=== PATIENT | female | born 1985 | race Caucasian/White ===

== ENCOUNTER 2018-03-23 15:52 | Inpatient (IN) | payer OTHER, SELFPAY ==
[2018-03-23] MEDS ORDERED: PROMETHAZINE 25 MG/ML VIAL ONE (16:42)
[2018-03-23] MEDS ORDERED: NA CHLORIDE 0.9% 2,000 ML ONE (16:43)
[2018-03-23] MEDS ORDERED: FENTANYL CITR 100 MCG/2 ML ONE (16:43)
[2018-03-23] MEDS ORDERED: ACETAMINOPHEN 500 MG TAB ONE (16:43)
--- NOTE | 2018-03-23 16:53 | RAD REPORT ---
EXAM DESCRIPTION: [place] Single View03/23/2018 4:47 pm CLINICAL HISTORY: abd pain COMPARISON: none FINDINGS: The lungs appear clear of acute infiltrate. The heart is normal size IMPRESSION: No acute abnormalities displayed
[2018-03-23 16:55] LABS: Absolute Lymphocytes (CBC) 0.9 K/uL (0.7-4.9); Basophils % 0.4 % (0-1.3); Eosinophils % 0.7 % (0-4.4); Hematocrit 42.1 % (36.0-45.0); Lymphocytes % 11.5 % (15.3-44.8); MCH 34.4 pg (27.0-35.0); MCV 98.9 fL (80-100); Monocytes % 0.6 % (3.3-12.3); RBC Red Blood Cell Count 4.26 M/uL (3.86-4.86)
[2018-03-23 17:09] LABS: Albumin 3.4 g/dL (3.4-5.0); Bilirubin Direct 0.2 mg/dL (0-0.2); Bilirubin Total 0.6 mg/dL (0.2-1.0); Protein, Total 7.1 g/dL (6.4-8.2)
--- NOTE | 2018-03-23 18:38 | RAD REPORT ---
EXAM DESCRIPTION: CT - Abdomen Pelvis W Contrast - 03/23/2018 6:28 pm CLINICAL HISTORY: Abdominal pain, left upper quadrant pain, chills COMPARISON: None. TECHNIQUE: Biphasic, helical CT imaging of the abdomen and pelvis was performed following 100 ml non -ionic IV contrast. Oral contrast was given. All CT scans are performed using dose optimization technique as appropriate and may include automated exposure control or mA/KV adjustment according to patient size. FINDINGS: No suspicious findings in the lung bases. The liver, spleen, and pancreas show no suspicious findings. Gallbladder and biliary tree are also wi thout suspicious finding. Renal function is symmetric. However, there is diminished or heterogeneous enhancement in the lower p ole of the left kidney. Minimal stranding in the perinephric fat. Simon of the left ureter enhance. T here is no dilatation or obstructing calculus. No abscess. Urinary bladder wall appears thickened gre ater than expected for partial contraction. No bladder mass. Uterus and right ovary show no suspiciou s finding. Left ovary contains a 3 centimeter cyst. No evidence for complicating characteristic. No dilated bowel loops or bowel wall thickening. No appendicitis findings. No free air, free fluid or inflammatory stranding. No hernia, mass or bulky lymphadenopathy. The urinary bladder is without si gnificant finding. No adrenal abnormality. No suspicious bony findings. IMPRESSION: Left-sided pyelonephritis without abscess or other complicating finding. Probable cystitis.
--- NOTE | 2018-03-23 18:43 | EKG ---
Test Date: 2018-03-23 Test Time: 16:58:23 Quality Assurance Assessor: REGGIE MEASUREMENT RESULTS: Intervals: Rate: 117 VT: 128 QRSD: 78 QT: 298 QTc: 415 [place]: P: 42 VT: 128 QRS: 5 T: 44 INTERPRETIVE STATEMENTS: Sinus tachycardia Otherwise normal ECG No previous ECG available for comparison Electronically Signed On 03-23-18 18:42:51 CDT by Clive Medel
[2018-03-23] MEDS ORDERED: CEFTRIAXONE/SWI 1gm 2 GM/20 ML SYR ONE (18:57)
[2018-03-23 19:07] LABS: Urine Amorphous Sediment 1+ /HPF (NONE SEEN); Urine Bacteria 20-50 /HPF (<20); Urine Culture Reflex Order REFLEXED
[2018-03-23 19:07] LABS: Urine Blood 2+ (NEG); Urine Glucose NEGATIVE (NEG); Urine Protein 1+ (NEG); Urine Specific Gravity <1.005 (1.005-1.030)
--- NOTE | 2018-03-23 19:08 | ER ---
Nurse's Notes [facility] Name: Jyoti Amado Age: 32 yrs Sex: Female : 1985 Arrival Date: 03/23/2018 Time: 15:59 Bed 6 Private MD: William Torres E Diagnosis: Acute tubulo-interstitial nephritis Presentation: 03/23 16:03 Presenting complaint: Patient states: LUQ abd pain for 4 days, chills, denies fever, sg nausea/vomiting, denies urinary symptoms at this time. Transition of care: patient was not received from another setting of care. Onset of symptoms was March 23, 2018. Risk Assessment: Do you want to hurt yourself or someone else? Patient reports no desire to harm self or others. Initial Sepsis Screen: Does the patient meet any 2 criteria? No. Patient's initial sepsis screen is negative. Does the patient have a suspected source of infection? No. Patient's initial sepsis screen is negative. Care prior to arrival: None. 16:03 Method Of Arrival: Ambulatory sg 16:03 Acuity: GABO 3 sg 16:17 Initial Sepsis Screen: Does the patient meet any 2 criteria? Temp <36.0*C (96.8*F)) or sv > 38.3*C (100.4*F). HR > 90 bpm. Yes Does the patient have a suspected source of infection? Yes: Acute abdominal pain. 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 - Social history:: Smoking status: Patient uses tobacco products, smokes one-half pack cigarettes per day. - Ebola Screening: : Patient negative for fever greater than or equal to 101.5 degrees Fahrenheit, and additional compatible Ebola Virus Disease symptoms Patient denies exposure to infectious person Patient denies travel to an Ebola-affected area in the 21 days before illness onset No symptoms or risks identified at this time. Screenin:35 Abuse screen: Denies threats or abuse. Denies injuries from another. Nutritional sv screening: No deficits noted. Tuberculosis screening: No symptoms or risk factors identified. Fall Risk None identified. Assessment: 16:35 General: Appears in no apparent distress. uncomfortable, well developed, Behavior is sv cooperative, crying. General: Reports chills for 0-12 hours. Pain: Complains of pain in suprapubic area, anterior aspect of left lateral abdomen, left upper quadrant and left lower quadrant Pain currently is 10 out of 10 on a pain scale. Is continuous. Neuro: Level of Consciousness is awake, alert, obeys commands, Oriented to person, place, time, situation, Moves all extremities. Full function Gait is steady, Speech is normal. Cardiovascular: Patient's skin is warm and dry. Respiratory: Respiratory effort is even, unlabored, Respiratory pattern is regular, symmetrical. GI: Abdomen is flat, Abd is soft X 4 quads Abdomen is tender to palpation in suprapubic area, left upper quadrant and left lower quadrant Reports nausea, vomiting. Derm: Skin is normal, Skin temperature is hot. Musculoskeletal: Range of motion: intact in all extremities. 18:54 Reassessment: Patient appears in no apparent distress at this time. No changes from sv previously documented assessment. Patient and/or family updated on plan of care and expected duration. Pain level reassessed. Patient is alert, oriented x 3, equal unlabored respirations, skin warm/dry/pink. 19:00 GI: Bowel sounds present X 4 quads. bp 19:30 Reassessment: received patient lying on bed. vital signs are stable. awaiting admit rv orders and room assignment. Vital Signs: 16:17 BP 120 / 74; Pulse 128; Resp 19; Temp 103.2; Pulse Ox 99% on R/A; Weight 65.77 kg; dh3 Height 5 ft. 1 in. (154.94 cm); Pain 10/10; 17:00 BP 121 / 70; Pulse 117; Resp 17; Pulse Ox 98% ; sv 17:12 Temp 101.7; dh3 17:38 BP 112 / 66; Pulse 111; Resp 21; Pulse Ox 98% ; sv 18:08 BP 108 / 65; Pulse 102; Resp 19; Temp 101.9(O); Pulse Ox 97% ; sv 18:45 BP 104 / 65; Pulse 96; Resp 16; Pulse Ox 96% on R/A; sv 20:15 BP 94 / 62; Pulse 87; Resp 16; Pulse Ox 100% ; bp 20:53 BP 94 / 62; Pulse 96; Resp 16; Pulse Ox 98% on R/A; rv 16:17 Body Mass Index 27.40 (65.77 kg, 154.94 cm) 3 ED Course: 15:59 Patient arrived in ED. sb2 15:59 William Torres MD is Private Physician. sb2 16:03 Arm band placed on. sg 16:04 Triage completed. sg 16:06 Sharon Bass FNP-C is PHCP. snw 16:06 Elijah Nelson MD is Attending Physician. snw 16:15 Initial lab(s) drawn, by me, sent to lab. 3 16:15 First set of blood cultures drawn by me, by venipuncture 23G to left ac. dh3 16:16 Rhona Carrera, ELIJAH is Primary Nurse. sv 16:21 Inserted saline lock: 20 gauge in right antecubital area, using aseptic technique. 3 Blood collected. 16:35 Patient has correct armband on for positive identification. Placed in gown. Bed in low sv position. Call light in reach. Adult w/ patient. Pulse ox on. NIBP on. Door closed. Head of bed elevated. 16:45 Chest Single View XRAY In Process Unspecified. EDMS 16:49 X-ray completed. Portable x-ray completed in exam room. Patient tolerated procedure kp1 well. 16:56 Second set of blood cultures drawn by me, by venipuncture 23G to right hand. 3 17:03 EKG done, by medical technologist. reviewed by Sharon BARAJAS. sm3 17:26 Basic Metabolic Panel Sent. sv 17:26 Blood Culture Adult (2) Sent. sv 17:58 PHCP role handed off by Sharon Bass FNP-C jr8 17:58 Julio Bland PA is PHCP. jr8 18:28 CT Abd/Pelvis - W/Contrast In Process Unspecified. EDMS 19:06 Pat Parish MD is Hospitalizing Provider. jr8 19:08 Report given to Jailene RN and Bandar RN. sv 20:19 No provider procedures requiring assistance completed. Patient admitted, IV remains in bp place. Administered Medications: 16:45 Drug: NS 0.9% (30 ml/kg) 30 ml/kg Route: IV; Rate: bolus; Site: right antecubital; sv 16:45 Drug: Phenergan 6.25 mg Route: IVP; Site: right antecubital; sv 17:30 Follow up: Response: No adverse reaction sv 16:47 Drug: fentaNYL (PF) 50 mcg Route: IVP; Site: right antecubital; sv 17:30 Follow up: Response: No adverse reaction sv 16:51 Drug: Tylenol 1000 mg Route: PO; sv 17:30 Follow up: Response: No adverse reaction sv 18:58 Drug: Rocephin 2 grams Route: IV; Rate: calculated rate; Site: right antecubital; ph 18:59 Follow up: Response: No adverse reaction; IV Status: Completed infusion ph Outcome: 19:06 Decision to Hospitalize by Provider. emily 21:19 Admitted to Med/surg accompanied by aniket, via wheelchair, room 219, with chart, Report bp called to SHANNAN 21:19 Condition: stable 21:19 Instructed on the need for admit. 21:20 Patient left the ED. bp Signatures: Dispatcher [employer] EDMS Rhona Carrera, RN RN Perfecto Pelayo RN RN sg Sharon Bass, STAFF PSYCHIATRIST-C STAFF PSYCHIATRIST-Csnw Julio Bland PA PA jr8 Alena Cancino RN RN Cindy Mejia kp1 Lyudmila Pace 3 Bandar Posada RN RN Kailey Max 2 Susan Sandoval 3 Juliano Nichole RN RN rv
--- NOTE | 2018-03-23 19:08 | EDPHYS ---
Physician Documentation [facility] Name: Jyoti Amado Age: 32 yrs Sex: Female : 1985 Arrival Date: 03/23/2018 Time: 15:59 Bed 6 Private MD: William Torres E ED Physician Elijah Nelson HPI: 03/23 17:25 This 32 yrs old Female presents to ER via Ambulatory with complaints of snw Abdominal Pain. 17:25 The patient presents with abdominal pain in the left upper quadrant, in the left lower snw quadrant. Onset: The symptoms/episode began/occurred gradually. The symptoms do not radiate. Associated signs and symptoms: Pertinent positives: nausea and vomiting, vomiting. The symptoms are described as shooting. Severity of pain: At its worst the pain was severe incapacitating. The patient has not experienced similar symptoms in the past. 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 - Social history:: Smoking status: Patient uses tobacco products, smokes one-half pack cigarettes per day. - Ebola Screening: : Patient negative for fever greater than or equal to 101.5 degrees Fahrenheit, and additional compatible Ebola Virus Disease symptoms Patient denies exposure to infectious person Patient denies travel to an Ebola-affected area in the 21 days before illness onset No symptoms or risks identified at this time. ROS: 17:24 Eyes: Negative for injury, pain, redness, and discharge, ENT: Negative for injury, snw pain, and discharge, Neck: Negative for injury, pain, and swelling, Cardiovascular: Negative for chest pain, palpitations, and edema, Respiratory: Negative for shortness of breath, cough, wheezing, and pleuritic chest pain. 17:24 Back: Negative for injury and pain, : Negative for injury, bleeding, discharge, and swelling, MS/Extremity: Negative for injury and deformity, Skin: Negative for injury, rash, and discoloration, Neuro: Negative for headache, weakness, numbness, tingling, and seizure, Psych: Negative for depression, anxiety, suicide ideation, homicidal ideation, and hallucinations. 17:24 Constitutional: Positive for body aches, chills, poor PO intake. 17:24 Abdomen/GI: Positive for abdominal pain, nausea and vomiting. Exam: 17:24 Head/Face: Normocephalic, atraumatic. Eyes: Pupils equal round and reactive to light, snw extra-ocular motions intact. Lids and lashes normal. Conjunctiva and sclera are non-icteric and not injected. Cornea within normal limits. Periorbital areas with no swelling, redness, or edema. ENT: Nares patent. No nasal discharge, no septal abnormalities noted. Tympanic membranes are normal and external auditory canals are clear. Oropharynx with no redness, swelling, or masses, exudates, or evidence of obstruction, uvula midline. Mucous membranes moist. Neck: Trachea midline, no thyromegaly or masses palpated, and no cervical lymphadenopathy. Supple, full range of motion without nuchal rigidity, or vertebral point tenderness. No Meningismus. Chest/axilla: Normal chest wall appearance and motion. Nontender with no deformity. No lesions are appreciated. 17:24 Respiratory: Lungs have equal breath sounds bilaterally, clear to auscultation and percussion. No rales, rhonchi or wheezes noted. No increased work of breathing, no retractions or nasal flaring. Back: No spinal tenderness. No costovertebral tenderness. Full range of motion. Skin: Warm, dry with normal turgor. Normal color with no rashes, no lesions, and no evidence of cellulitis. MS/ Extremity: Pulses equal, no cyanosis. Neurovascular intact. Full, normal range of motion. Neuro: Awake and alert, GCS 15, oriented to person, place, time, and situation. Cranial nerves II-XII grossly intact. Motor strength 5/5 in all extremities. Sensory grossly intact. Cerebellar exam normal. Normal gait. Psych: Awake, alert, with orientation to person, place and time. Behavior, mood, and affect are within normal limits. 17:24 Constitutional: The patient appears alert, awake, anxious, febrile, uncomfortable. 17:24 Cardiovascular: Rate: tachycardic, Rhythm: regular, Heart sounds: normal. 17:24 Abdomen/GI: Inspection: abdomen appears normal, Bowel sounds: normal, Palpation: moderate abdominal tenderness, severe abdominal tenderness, in the suprapubic area and left lower quadrant. Vital Signs: 16:17 BP 120 / 74; Pulse 128; Resp 19; Temp 103.2; Pulse Ox 99% on R/A; Weight 65.77 kg; dh3 Height 5 ft. 1 in. (154.94 cm); Pain 10/10; 17:00 BP 121 / 70; Pulse 117; Resp 17; Pulse Ox 98% ; sv 17:12 Temp 101.7; dh3 17:38 BP 112 / 66; Pulse 111; Resp 21; Pulse Ox 98% ; sv 18:08 BP 108 / 65; Pulse 102; Resp 19; Temp 101.9(O); Pulse Ox 97% ; sv 18:45 BP 104 / 65; Pulse 96; Resp 16; Pulse Ox 96% on R/A; sv 20:15 BP 94 / 62; Pulse 87; Resp 16; Pulse Ox 100% ; bp 20:53 BP 94 / 62; Pulse 96; Resp 16; Pulse Ox 98% on R/A; rv 16:17 Body Mass Index 27.40 (65.77 kg, 154.94 cm) 3 MDM: 16:45 Patient medically screened. snw 18:00 Data reviewed: vital signs, nurses notes. Data interpreted: Pulse oximetry: on room air snw is 98 %. Interpretation: normal. Counseling: I had a detailed discussion with the patient and/or guardian regarding: the historical points, exam findings, and any diagnostic results supporting the discharge/admit diagnosis, lab results, radiology results. Transition of care: After a detail discussion of the patient's case, care is transferred to Julio CARTAGENA. Special discussion:. 19:06 Data reviewed: lab test result(s), radiologic studies, CT scan. Counseling: I had a jr8 detailed discussion with the patient and/or guardian regarding: the need for further work-up and treatment in the hospital. 03/23 16:31 Order name: Basic Metabolic Panel [facility] 03/23 16:31 Order name: Blood Culture Adult (2) w 03/23 16:31 Order name: CBC with Diff; Complete Time: 17:36 snw 03/23 16:31 Order name: CPK; Complete Time: 17:11 w 03/23 16:31 Order name: Lactate; Complete Time: 17:07 snw 03/23 16:31 Order name: LFT's; Complete Time: 17:11 snw 03/23 16:31 Order name: Lipase; Complete Time: 17:11 snw 03/23 16:31 Order name: Procalcitonin; Complete Time: 17:36 snw 03/23 16:31 Order name: Sed Rate; Complete Time: 17:36 snw 03/23 16:32 Order name: Basic Metabolic Panel; Complete Time: 17:11 EDMS 03/23 16:32 Order name: Blood Culture EDID 03/23 18:49 Order name: Urine Dipstick--Ancillary (enter results); Complete Time: 19:12 em1 03/23 18:50 Order name: Urine Microscopic Only; Complete Time: 19:12 em1 03/23 19:08 Order name: Urine Culture [facility] 03/23 16:31 Order name: Chest Single View XRAY; Complete Time: 17:07 snw 03/23 16:31 Order name: Cardiac monitoring; Complete Time: 17:14 snw 03/23 16:31 Order name: EKG - Nurse/Tech; Complete Time: 17:01 w 03/23 16:31 Order name: IV Saline Lock - Large Bore; Complete Time: 16:50 w 03/23 16:31 Order name: Labs collected and sent; Complete Time: 16:50 w 03/23 16:31 Order name: O2 Per Protocol; Complete Time: 16:50 w 03/23 16:31 Order name: O2 Sat Monitoring; Complete Time: 16:50 snw 03/23 16:31 Order name: Urine Dipstick-Ancillary (obtain specimen); Complete Time: 18:48 snw 03/23 16:47 Order name: CT Abd/Pelvis - W/Contrast; Complete Time: 18:41 snw 03/23 18:39 Order name: EKG Electrocardiogram EDMS Administered Medications: 16:45 Drug: NS 0.9% (30 ml/kg) 30 ml/kg Route: IV; Rate: bolus; Site: right antecubital; sv 16:45 Drug: Phenergan 6.25 mg Route: IVP; Site: right antecubital; sv 17:30 Follow up: Response: No adverse reaction sv 16:47 Drug: fentaNYL (PF) 50 mcg Route: IVP; Site: right antecubital; sv 17:30 Follow up: Response: No adverse reaction sv 16:51 Drug: Tylenol 1000 mg Route: PO; sv 17:30 Follow up: Response: No adverse reaction sv 18:58 Drug: Rocephin 2 grams Route: IV; Rate: calculated rate; Site: right antecubital; ph 18:59 Follow up: Response: No adverse reaction; IV Status: Completed infusion ph Disposition: 03/24 07:11 Co-signature as Attending Physician, Elijah Nelson MD. rn Disposition: 03/23/18 19:06 Hospitalization ordered by Pat Parish for Inpatient Admission. Preliminary diagnosis is Acute tubulo-interstitial nephritis. - Bed requested for Telemetry/MedSurg (Inpatient). - Status is Inpatient Admission. bp - Condition is Fair. - Problem is new. - Symptoms have improved. UTI on Admission? Yes Signatures: Dispatcher [employer] EDMS Rhona Crarera RN ELIJAH Rema Doyle RN ELIJAH Perfecto Bailon RN RN sg Sharon Bass, NEUROSURGERY PHYSICIAN-C NEUROSURGERY PHYSICIAN-Csnw Elijah Nelson MD MD rn Roszak, Josh, PA PA jr8 Alena Cancino RN RN Bandar Posada RN RN Ariadne Odell Corrections: (The following items were deleted from the chart) 03/23 17:25 16:31 Accucheck ordered. snw sv 19:18 19:06 Hospitalization Ordered by Pat Parish MD for Inpatient Admission. Preliminary eb diagnosis is Acute tubulo-interstitial nephritis. Bed requested for Telemetry/MedSurg (Inpatient). Status is Inpatient Admission. Condition is Fair. Problem is new. Symptoms have improved. UTI on Admission? Yes. jr8 19:27 19:18 03/23/2018 19:06 Hospitalization Ordered by Pat Parish MD for Inpatient mw Admission. Preliminary diagnosis is Acute tubulo-interstitial nephritis. Bed requested for Telemetry/MedSurg (Inpatient). Status is Inpatient Admission. Condition is Fair. Problem is new. Symptoms have improved. UTI on Admission? Yes. eb 21:20 19:27 03/23/2018 19:06 Hospitalization Ordered by Pat Parish MD for Inpatient bp Admission. Preliminary diagnosis is Acute tubulo-interstitial nephritis. Bed requested for Telemetry/MedSurg (Inpatient). Status is Inpatient Admission. Condition is Fair. Problem is new. Symptoms have improved. UTI on Admission? Yes. mw
[2018-03-23] MEDS ORDERED: MORPHINE 2 MG/ML SYR IV PRN (19:46)
[2018-03-23] MEDS ORDERED: ONDANSETRON 4 MG/2 ML VIAL IV PRN (19:46)
[2018-03-23] MEDS ORDERED: ACETAMINOPHEN 500 MG TAB PO PRN (19:46)
[2018-03-23] MEDS ORDERED: NA CHLORIDE 0.9% 1,000 ML IV SCH (20:00)
[2018-03-23 21:24] VITALS: BMI 27.3
[2018-03-23 23:28] VITALS: O2SAT 100
[2018-03-24 05:24] LABS: Absolute Lymphocytes (CBC) 1.3 K/uL (0.7-4.9); Absolute Monocytes 0.6 K/uL (0.1-1.3); Absolute Neutrophil 7.9 K/uL (1.8-8.0); Basophils % 0.2 % (0-1.3); Eosinophils % 1.2 % (0-4.4); Hematocrit 34.6 % (36.0-45.0); Lymphocytes % 12.9 % (15.3-44.8); MCH 34.1 pg (27.0-35.0); MCV 98.6 fL (80-100); MPV 8.4 fL (7.6-11.3); Monocytes % 5.7 % (3.3-12.3); RBC Red Blood Cell Count 3.51 M/uL (3.86-4.86)
[2018-03-24 05:41] LABS: ALT/SGPT 27 U/L (12-78); AST/SGOT 14 U/L (15-37); Albumin 2.7 g/dL (3.4-5.0); Alkaline Phosphatase 44 U/L (45-117); BUN Blood Urea Nitrogen 7 mg/dL (7-18); Bicarbonate 25 mmol/L (21-32); Bilirubin Total 0.2 mg/dL (0.2-1.0); Glucose Level 141 mg/dL (74-106); Potassium 3.9 mmol/L (3.5-5.1); Protein, Total 5.9 g/dL (6.4-8.2); Sodium Level 142 mmol/L (136-145)
--- NOTE | 2018-03-24 06:17 | P.HP ---
Certification for Inpatient Patient admitted to: Inpatient With expected LOS: >2 Midnights Patient will require the following post-hospital care: None Practitioner: I am a practitioner with admitting privileges, knowledge of patient current condition, hospital course, and medical plan of care. Services: Services provided to patient in accordance with Admission requirements found in Title 42 Section 412.3 of the Code of Federal Regulations Patient History Date of Service: 03/24/18 Reason for admission: Cystitis/Intractable nausea and vomiting History of Present Illness: Patient is a 32yo who was admitted to the hospital with intractable nausea and vomiting. Patient has been feeling ill for the last few days. Patient went to the emergency room a week ago and was felt to have a kidney stone. She was also found have an ovarian cyst. Her clinical symptoms continued to worsen so she came into the emergency room for further evaluation. She was having intractable nausea and vomiting. She was not able to hold anything down at all. In the ER, she was found have cystitis and diagnose with pyelonephritis as she was having left-sided flank tenderness. Patient be admitted to the hospital for IV antibiotics and IV hydration. If her intractable nausea and vomiting improves and she is able to keep oral pills down she may be ready for discharge in the next 48 hr. Will need to monitor her and treat her aggressively for until she is able to hold her liquids down. Then we can advance her diet as tolerated and possibly discharge her at that time. Allergies No Known Allergies Allergy (Unverified 03/23/18 20:18) Home Medications: NK [No Home Meds] 03/23/18 - Past Medical/Surgical History Has patient received pneumonia vaccine in the past: No Diabetic: No Past Medical History: Patient denies medical history -: Tubal ligation - Family History Father Family History: Reviewed- Non-Contributory - Social History Smoking Status: Current every day smoker Alcohol use: Yes CD- Drugs: No Caffeine use: Yes Place of Residence: Home Review of Systems 10-point ROS is otherwise unremarkable Physical Examination - Vital Signs Temperature: 99.6 F Blood Pressure: 107/57 Pulse: 94 Respirations: 18 Pulse Ox (%): 95 - Physical Exam General: Alert, In no apparent distress, Oriented x3 HEENT: Atraumatic, PERRLA, Mucous membr. moist/pink, EOMI, Sclerae nonicteric Neck: Supple, 2+ carotid pulse no bruit, No LAD, Without JVD or thyroid abnormality Respiratory: Clear to auscultation bilaterally, Normal air movement Cardiovascular: Regular rate/rhythm, Normal S1 S2, No murmurs Gastrointestinal: Normal bowel sounds, Soft and benign, Non-distended, Tenderness (In the left lower quadrant and the left flank) Musculoskeletal: No clubbing, No swelling, No tenderness Integumentary: No rashes Neurological: Normal gait, Normal speech, Normal strength at 5/5 x4 extr, Normal tone, Sensation intact, Cranial nerves 3-12 intact, Normal affect Lymphatics: No axilla or inguinal lymphadenopathy - Studies Laboratory Data (last 24 hrs) 03/23/18 16:16: WBC 8.0, Hgb 14.6, Hct 42.1, Plt Count 297 03/23/18 16:16: Sodium 135 L, Potassium 4.0, BUN 8, Creatinine 0.90, Glucose 161 H, Total Bilirubin 0.6, AST 17, ALT 34, Alkaline Phosphatase 56, Lipase 50 L Assessment & Plan - Problems (Diagnosis) (1) Pyelonephritis Current Visit: Yes Status: Acute (2) Cystitis Current Visit: Yes Status: Acute (3) Intractable nausea and vomiting Current Visit: Yes Status: Acute (4) Abdominal pain Current Visit: Yes Status: Acute - Plan 1. Continue with IV hydration 2. Continue with IV antibiotics 3. Continue with pain control 4. NPO along with anti emetics 5. Follow with gynecology in 1-2 weeks 6. Serial H&H, and we will repeat CBC, BMP, LFTs in a.m. 7. DVT prophylaxis - Advance Directives Does patient have a Living Will: No Does patient have a Durable POA for Healthcare: No - Code Status/Comfort Care Code Status Assessed: Yes Code Status: Full Code Critical Care: No Time Spent Managing PTS Care (In Minutes): 50
[2018-03-24] MEDS ORDERED: TRAMADOL HCL 50 MG TAB PO PRN (06:55)
--- NOTE | 2018-03-24 07:41 | P.PN ---
Subjective Date of Service: 03/24/18 Primary Care Provider: Dr. Torres Chief Complaint: Cystitis/Intractable nausea and vomiting Subjective: Other (Slightly improved. Pain still present to the left flank) Physical Examination - Vital Signs Temperature: 99.6 F Blood Pressure: 107/57 Pulse: 94 Respirations: 18 Pulse Ox (%): 95 - Physical Exam General: Alert, In no apparent distress, Oriented x3, Cooperative HEENT: Atraumatic Neck: Supple Respiratory: Clear to auscultation bilaterally, Normal air movement Cardiovascular: Normal pulses, Regular rate/rhythm Gastrointestinal: Normal bowel sounds, Soft and benign, Non-distended, No masses , No rebound, No guarding, Tenderness (Pain to the left flank) Musculoskeletal: No erythema, No tenderness, No warmth Integumentary: No tenderness/swelling, No erythema, No warmth, No cyanosis Neurological: Normal speech, Normal strength at 5/5 x4 extr, Normal tone, Normal affect - Studies Laboratory Data (last 24 hrs) 03/23/18 16:16: WBC 8.0, Hgb 14.6, Hct 42.1, Plt Count 297 03/23/18 16:16: Sodium 135 L, Potassium 4.0, BUN 8, Creatinine 0.90, Glucose 161 H, Total Bilirubin 0.6, AST 17, ALT 34, Alkaline Phosphatase 56, Lipase 50 L Medications List Reviewed: Yes Assessment & Plan - Problems (Diagnosis) (1) Tobacco abuse Current Visit: Yes Status: Chronic Plan: Will provide nicotine patch if needed. (2) Abdominal pain Current Visit: Yes Status: Acute Plan: Secondary to left-sided pyelonephritis. No abscess noted noted. Blood in urine cultures obtained. Will continue IV antibiotic therapy. Will provide medication for pain discharge likely in 2-3 days. I will turn the service over to Dr. Franco tomorrow to help cover me. I will go over the plan of care with him. Qualifiers: Abdominal location: left upper quadrant Qualified Code(s): R10.12 - Left upper quadrant pain (3) Cystitis Current Visit: Yes Status: Acute Plan: Continue with above plan of care. (4) Intractable nausea and vomiting Current Visit: Yes Status: Acute Plan: Will provide medication as needed Qualifiers: Vomiting type: unspecified Qualified Code(s): R11.2 - Nausea with vomiting , unspecified (5) Pyelonephritis Current Visit: Yes Status: Acute Plan: Continue with IV antibiotic therapy. Continue with aggressive fluid hydration. Await blood and urine culture results. Discharge Plan: Home Plan to discharge in: 72 Hours Time Spent Managing Pts Care (In Minutes): 55
[2018-03-24] MEDS: CEFTRIAXONE/SWI 1gm 1 GM/10 ML SYR IV SCH ×2 (08:14→21:13)
[2018-03-24] MEDS: NA CHLORIDE 0.9% 1,000 ML IV SCH ×3 (08:14→22:13)
[2018-03-24] MEDS ORDERED: CEFTRIAXONE 1 GM/NS 50 ML 1 GM/50 ML BAG IV SCH (09:00)
[2018-03-24] MEDS ORDERED: ALPRAZOLAM 0.25 MG TABLET PO PRN (13:28)
[2018-03-24] MEDS: HYDROCODONE/APAP 7.5/325 MG TAB PO PRN ×2 (15:07→21:11)
[2018-03-25] MEDS: HYDROCODONE/APAP 7.5/325 MG TAB PO PRN (05:56)
[2018-03-25] MEDS ORDERED: PANTOPRAZOLE 40MG TABLET PO SCH (06:30)
[2018-03-25 08:01] VITALS: BP 109/57; TEMP 98.5
[2018-03-25] MEDS: CEFTRIAXONE/SWI 1gm 1 GM/10 ML SYR IV SCH (09:08)
--- NOTE | 2018-03-25 09:23 | P.DS ---
Admission Date: 03/23/18 Discharge Date: 03/25/18 Primary Care Provider: Dr. Torres Disposition: ROUTINE DISCHARGE Discharge Condition: GOOD Reason for Admission: Cystitis/Intractable nausea and vomiting Brief History of Present Illness: Patient is 32 years of age admitted with intractable nausea and vomiting diagnosis of pyelonephritis Hospital Course: Patient did well treated with IV antibiotics CT scan confirmed left-sided pyelonephritis urine cultures positive for E coli can since the time of discharge patient was doing well did not complain of any abdominal or back pain final signs stable ENT normal neck no obvious masses chest clear cardiovascular stem on some normal abdomen soft extremities no edema patient to be discharged home on levofloxacin 750 mg for 7 days and to follow up with the primary care physician Vital Signs/Physical Exam: Temp Pulse Resp BP Pulse Ox 98.5 F 75 16 109/57 L 100 03/25/18 08:00 03/25/18 08:00 03/25/18 08:00 03/25/18 08:00 03/25/18 08:00 Laboratory Data at Discharge: WBC 9.8 K/uL (4.3-10.9) D 03/24/18 04:19 Hgb 12.0 g/dL (12.0-15.0) D 03/24/18 04:19 Hct 34.6 % (36.0-45.0) L D 03/24/18 04:19 Plt Count 283 K/uL (152-406) 03/24/18 04:19 Sodium 142 mmol/L (136-145) 03/24/18 04:19 Potassium 3.9 mmol/L (3.5-5.1) 03/24/18 04:19 BUN 7 mg/dL (7-18) 03/24/18 04:19 Creatinine 0.70 mg/dL (0.55-1.3) 03/24/18 04:19 Glucose 141 mg/dL (74-106) H 03/24/18 04:19 Total Bilirubin 0.2 mg/dL (0.2-1.0) 03/24/18 04:19 AST 14 U/L (15-37) L 03/24/18 04:19 ALT 27 U/L (12-78) 03/24/18 04:19 Alkaline Phosphatase 44 U/L (45-117) L 03/24/18 04:19 Lipase 50 U/L (73-393) L 03/23/18 16:16 Home Medications: levoFLOXacin [Levaquin] 750 mg PO DAILY #7 tab 03/25/18 New Medications: levoFLOXacin [Levaquin] 750 mg PO DAILY #7 tab Followup: William Torres MD [Primary Care Provider] -
== END 2018-03-25 11:36 | disposition home or self-care (01) | DRG 690 ==
LOC: ER 15:52 → ERHOLD 19:13 → 2ND 20:49
PROVIDERS: ADMIT Hospitalist; ATTEND Internal Medicine Sleep Medicine
DX: N10 Acute pyelonephritis (principal); N30.00 Acute cystitis without hematuria; B96.20 Unspecified Escherichia coli [E. coli] as the cause of diseases classified elsewhere; F17.210 Nicotine dependence, cigarettes, uncomplicated
CPT/HCPCS: 36415; 71045; 74177; 80048; 80053; 80076; 81003; 81015; 82550; 83605; 83690; 84145; 85025; 85652; 87040; 87077; 87086; 87088; 87186; 93005; 96374; 96375; 99285; J0696; J2270; J2550; J3010; J7030; Q9967

== ENCOUNTER 2021-10-13 10:11 | Emergency (ER) | payer OTHER, SELFPAY ==
[2021-10-13] MEDS ORDERED: NA CHLORIDE 0.9% 1,000 ML ONE (11:10)
[2021-10-13] MEDS ORDERED: ONDANSETRON 4 MG/2 ML VIAL ONE (11:10)
[2021-10-13] MEDS ORDERED: MORPHINE 4 MG/ML SYR ONE (11:10)
[2021-10-13 11:16] LABS: Urine Blood Trace-intact (Negative); Urine Glucose Negative (Negative); Urine Protein Trace (Negative); Urine Specific Gravity 1.025 (1.005-1.030); Urine pH 5.5 (5.0-7.0)
[2021-10-13 11:34] LABS: Absolute Lymphocytes (CBC) 1.6 K/uL (0.7-4.9); Lymphocytes % 22.6 % (15.3-44.8); MPV 7.7 fL (7.6-11.3); RBC Red Blood Cell Count 4.52 M/uL (3.86-4.86)
[2021-10-13 11:38] LABS: Protime INR 0.98
[2021-10-13 11:58] LABS: Potassium 4.3 mmol/L (3.5-5.1)
--- NOTE | 2021-10-13 12:33 | RAD REPORT ---
EXAM DESCRIPTION: CT - Head C Spine Cap W Con - 10/13/2021 12:09 pm CLINICAL HISTORY: fall down stairs, head, neck, chest and abdomen pain COMPARISON: Facial Bones W/ Mpr dated 10/13/2021 TECHNIQUE: Axial [address] head images were obtained. Axial [address] cervical spine images were obtaine d with sagittal and coronal reconstruction images reviewed. During dynamic enhancement of 100mL non-i onic contrast, axial 5 mm images of the chest, abdomen and pelvis were obtained. Biphasic technique p erformed of the abdomen and pelvis. All CT scans are performed using dose optimization technique as appropriate and may include automated exposure control or mA/KV adjustment according to patient size. FINDINGS: No intracranial hemorrhage, mass or edema. No midline shift or abnormal fluid collection. Mastoid air cells and paranasal sinuses are clear. No skull fracture. Mastoid air cells are clear. Orbits, facial bones and sinuses are detailed in separate report. CT cervical spine imaging shows normal height. Normal alignment of the vertebrae noted. The very slig ht atlantoaxial rotation not felt be outside of normal range. No disc space narrowing. No paraspinal mass or hematoma seen. Central canal detail is inherently limited. Concerns for traumatic disc hernia tion or traumatic cord injury can be further addressed with MR imaging. CT chest shows no pneumothorax, pulmonary contusion or pleural fluid collection. No mediastinal hemat nikky and the aorta and pulmonary arteries are unremarkable. No chest will mass or abnormal axillary fi nding. No displaced rib fracture or other significant bony finding. CT abdomen and pelvis show no injury to solid abdominal viscera. Incidental note of small gallstones. No acute gallbladder or biliary tree finding. No bowel injury or significant finding. No free air, f ree fluid or abnormal stranding. No urinary bladder abnormality. No significant bony finding. No significant vascular finding. IMPRESSION: No significant CT Head finding. Facial bones, sinuses and orbits are detailed in separat e report. No significant CT Cervical Spine finding. No significant CT Chest finding. No significant CT Abdomen and Pelvis finding.
--- NOTE | 2021-10-13 12:39 | RAD REPORT ---
EXAM DESCRIPTION: CT - Facial Bones W/ Mpr - 10/13/2021 12:09 pm CLINICAL HISTORY: Fall down stairs, facial trauma COMPARISON: None. TECHNIQUE: Axial 2 millimeter thick images of the facial bones were obtained with sagittal and coron al reconstruction imaging. All CT scans are performed using dose optimization technique as appropriate and may include automated exposure control or mA/KV adjustment according to patient size. FINDINGS: Left orbital floor fracture is present. Fat extends through the orbital floor defect. Ther e is mucosal thickening and air-fluid level in the left maxillary sinus. No globe or extra ocular mus radha injury seen. The left orbital floor fracture fragment is depressed approximately 2 mm. Nondisplac ed fracture of the anterior tip of the nasal bone suspected. There is significant right deviation of the anterior and midportion of the nasal septum without an acute fracture identifiable. No other facial bone fractures are identified. Paranasal sinuses are otherwise clear of acute finding . There is mucosal thickening in the left side sphenoid sinus that is not believed to be trauma relat ed. . Mastoid air cells are clear. IMPRESSION: Left side orbital floor fracture is present with fracture fragment depressed 2 mm into t he left maxillary sinus. Mucosal thickening and air-fluid level present in the left maxillary sinus. Floor fracture is presumed to be acute given the trauma history. Correlation is needed with any prior facial trauma history. There is no entrapment of an extra ocular muscle related to the floor fracture. Nondisplaced fracture at the anterior tip of the nasal bone suspected. Patient has right deviation th e nasal septum without fracture.
--- NOTE | 2021-10-13 13:34 | EDPHYS ---
Physician Documentation [facility] Name: Jyoti Amado Age: 36 yrs Sex: Female : 1985 Arrival Date: 10/13/2021 Time: 10:14 Bed 11 Private MD: William Torres E ED Physician Yvette Smith HPI: 10/13 11:00 This 36 yrs old Female presents to ER via Ambulatory with complaints of Fall Injury. cp 11:00 Details of fall: The patient fell from a height, 2 flights of stairs, and struck a cp concrete surface. Onset: The symptoms/episode began/occurred 3 day(s) ago. Associated injuries: The patient sustained injury to the head, pain, swelling, tenderness, injury to the chest, specifically the left lateral posterior chest and left lateral anterior chest, pain with breathing, pain with movement, tenderness, injury to the abdomen, specifically the posterior aspect of left lateral abdomen and anterior aspect of left lateral abdomen, tenderness. 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 - Social history:: Smoking status: Patient reports the use of cigarette tobacco products, smokes one-half pack cigarettes per day. - Immunization history: Last tetanus immunization: - up to date. ROS: 11:05 Constitutional: Negative for body aches, chills, fever, poor PO intake. cp 11:05 Eyes: Negative for injury, pain, redness, and discharge. cp 11:05 ENT: Negative for ear pain, sore throat, difficulty swallowing, difficulty handling secretions. 11:05 Cardiovascular: Positive for chest pain. 11:05 Respiratory: Negative for cough, wheezing. 11:05 Abdomen/GI: Positive for abdominal pain, Negative for nausea, vomiting, and diarrhea. 11:05 Back: Positive for pain at rest, pain with movement. 11:05 Neuro: Negative for altered mental status, loss of consciousness, numbness, syncope, weakness. 11:05 All other systems are negative. Exam: 11:10 Constitutional: The patient appears in no acute distress, alert, awake, cp non-diaphoretic, non-toxic, well developed, well nourished, uncomfortable. 11:10 Head/face: Sinus tenderness, that is marked, is located over the left maxillary sinus. cp 11:10 Eyes: Periorbital structures: appear normal, Pupils: equal, round, and reactive to light and accomodation, Extraocular movements: intact throughout, Conjunctiva: normal, no exudate, no injection, Sclera: no appreciated abnormality, Lids and lashes: appear normal, bilaterally. 11:10 ENT: External ear(s): are unremarkable, Nose: External nose: tenderness, apex of the nose, Mouth: Lips: moist, Oral mucosa: moist, Posterior pharynx: Airway: no evidence of obstruction, patent. 11:10 Neck: C-spine: vertebral tenderness, is not appreciated, crepitus, is not appreciated. 11:10 Chest/axilla: Inspection: normal, Palpation: crepitus, is not appreciated, tenderness, that is moderate, of the left lateral posterior chest and left lateral anterior chest. 11:10 Cardiovascular: Rate: normal, Rhythm: regular, Edema: is not appreciated, JVD: is not appreciated. 11:10 Respiratory: the patient does not display signs of respiratory distress, Respirations: normal, no use of accessory muscles, no retractions, labored breathing, is not present, Breath sounds: are clear throughout, no decreased breath sounds, no stridor, no wheezing. 11:10 Abdomen/GI: Inspection: abdomen appears normal, Bowel sounds: active, all quadrants, Palpation: soft, in all quadrants, moderate abdominal tenderness, in the posterior aspect of left lateral abdomen and anterior aspect of left lateral abdomen. 11:10 Back: pain, that is moderate, of the thoracic area. 11:10 Neuro: Orientation: to person, place \T\ time. Mentation: is normal, Motor: moves all fours, strength is normal, Sensation: is normal. Vital Signs: 10:16 BP 127 / 81; Pulse 88; Resp 16; Temp 99.0; Pulse Ox 99% ; Weight 63.5 kg; Height 5 ft. ll1 1 in. (154.94 cm); Pain 10/10; 12:30 BP 121 / 77; Pulse 83 MON; Resp 16 S; Pulse Ox 98% on R/A; Pain 7/10; ab2 10:16 Body Mass Index 26.45 (63.50 kg, 154.94 cm) ll1 [place] Coma Score: 10:29 Eye Response: spontaneous(4). Verbal Response: oriented(5). Motor Response: obeys ab2 commands(6). Total: 15. Trauma Score (Adult): 10:28 Eye Response: spontaneous(1); Verbal Response: oriented(1); Motor Response: obeys ab2 commands(2); Systolic BP: > 89 mm Hg(4); Respiratory Rate: 10 to 29 per min(4); [place] Score: 15; Trauma Score: 12 MDM: 10:42 Patient medically screened. cp 13:30 Data reviewed: vital signs, nurses notes, lab test result(s), radiologic studies, CT cp scan. 13:30 Differential diagnosis: closed head injury, contusion, fracture, multiple trauma, cp sprain, strain. Counseling: I had a detailed discussion with the patient and/or guardian regarding: the historical points, exam findings, and any diagnostic results supporting the discharge/admit diagnosis, lab results, radiology results, the need for outpatient follow up, an ENT specialist, to return to the emergency department if symptoms worsen or persist or if there are any questions or concerns that arise at home. Response to treatment: the patient's symptoms have markedly improved after treatment. 10/13 10:54 Order name: Basic Metabolic Panel; Complete Time: 13:04 cp 10/13 13:04 Interpretation: Normal except: CL 108; GFR 77. cp 10/13 10:54 Order name: CBC with Diff; Complete Time: 13:04 cp 10/13 13:04 Interpretation: Normal except: MCV 90.7; MCH 30.0; RDW 17.3. cp 10/13 10:54 Order name: Type And Screen; Complete Time: 13:04 cp 10/13 10:54 Order name: PT-INR; Complete Time: 13:04 cp 10/13 11:16 Order name: Urine Dipstick-Ancillary; Complete Time: 13:04 EDMS 10/13 13:04 Interpretation: Normal except: UBLD Trace-intact; UPROT Trace; U NIT Positive; UESTR cp Trace. 10/13 11:32 Order name: Urine --Ancillary (enter results) bd 10/13 10:54 Order name: CT Traumagram (Head C Spine CAP W Con); Complete Time: 13:04 10/13 10:54 Order name: Labs collected and sent; Complete Time: 11:15 10/13 10:54 Order name: Urine Dipstick-Ancillary (obtain specimen); Complete Time: 11:15 10/13 10:54 Order name: Urine Test (obtain specimen); Complete Time: 11:15 10/13 10:54 Order name: CT Facial Bones W/O Con; Complete Time: 13:04 10/13 13:07 Interpretation: Report reviewed. cp Administered Medications: 11:12 Drug: morphine 4 mg Route: IVP; Site: right antecubital; ab2 12:47 Follow up: Response: No adverse reaction ab2 11:12 Drug: Zofran (Ondansetron) 4 mg Route: IVP; Site: right antecubital; ab2 12:47 Follow up: Response: No adverse reaction ab2 11:12 Drug: NS 0.9% 1000 ml Route: IV; Rate: 1 bolus; Site: right antecubital; ab2 12:47 Follow up: Response: No adverse reaction; IV Status: Completed infusion ab2 Disposition: 13:45 Chart complete. cp 10/14 04:42 Co-signature as Attending Physician, Yvette Smith MD I agree with the assessment and sp3 plan of care. Disposition Summary: 10/13/21 13:33 Discharge Ordered Location: Home cp Problem: new cp Symptoms: have improved cp Condition: Stable cp Diagnosis - Fracture of orbital floor - left cp - Fall (on) (from) other stairs and steps cp - Fracture of nasal bones cp - Contusion of left back wall of thorax, initial encounter cp - Contusion of left front wall of thorax, initial encounter cp Followup: cp - With: Rhona Pace MD - When: 2 - 3 days - Reason: Recheck today's complaints Discharge Instructions: - Discharge Summary Sheet cp - Chest Wall Pain cp - Orbital Floor Fracture cp - Nasal Fracture cp Forms: - Medication Reconciliation Form cp - Thank You Letter cp - Antibiotic Education cp - Prescription Opioid Use cp Prescriptions: - Ibuprofen 800 mg Oral Tablet - take 1 tablet by ORAL route every 8 hours As needed take with food; 30 tablet; cp Refills: 0, Product Selection Permitted - Ultracet 37.5-325 mg Oral Tablet - take 1 tablet by ORAL route every 6 hours - for up to 5 days; do not exceed 8 cp tablets per day.; 20 tablet; Refills: 0, Product Selection Permitted Signatures: Dispatcher [employer] EDFly Ring PA PA cp Lewis, Lynsay RN RN ll1 Yvette Smith MD MD sp3 Jose Manuel Lewis2
--- NOTE | 2021-10-13 13:34 | ER ---
Nurse's Notes [facility] Name: Jyoti Amado Age: 36 yrs Sex: Female : 1985 Arrival Date: 10/13/2021 Time: 10:14 Bed 11 Private MD: William Torres E Diagnosis: Fracture of orbital floor-left;Fall (on) (from) other stairs and steps;Fracture of nasal bones;Contusion of left back wall of thorax, initial encounter;Contusion of left front wall of thorax, initial encounter Presentation: 10/13 10:16 Chief complaint: Patient states: Fall on Tuesday. Dog dragged her down the stairs. ll1 Fell on L side. L trunk pain since. L side of face feels numb and painful. Denies LOC. Coronavirus screen: Vaccine status: Patient reports being unvaccinated. Client denies travel out of the [place] in the last 14 days. At this time, the client does not indicate any symptoms associated with coronavirus-19. Ebola Screen: Patient denies travel to an Ebola-affected area in the 21 days before illness onset. Initial Sepsis Screen: Does the patient meet any 2 criteria? No. Patient's initial sepsis screen is negative. Does the patient have a suspected source of infection? No. Patient's initial sepsis screen is negative. Risk Assessment: Do you want to hurt yourself or someone else? Patient reports no desire to harm self or others. Onset of symptoms was October 10, 2021. 10:16 Method Of Arrival: Ambulatory ll1 10:16 Acuity: GABO 3 ll1 10:29 Care prior to arrival: None. Mechanism of Injury: Fall down steps. ab2 10:30 Trauma event details: Injury occurred in the county of Injury occurred: at home. Injury ab2 occurred: October 10, 2021. 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 - Social history:: Smoking status: Patient reports the use of cigarette tobacco products, smokes one-half pack cigarettes per day. - Immunization history: Last tetanus immunization: - up to date. Screenin:28 Abuse screen: Denies threats or abuse. Denies injuries from another. Nutritional ab2 screening: No deficits noted. Tuberculosis screening: No symptoms or risk factors identified. Fall Risk None identified. Primary Survey: 10:28 NO uncontrolled hemorrhage observed. Breathing/Chest: Respiratory pattern: regular, ab2 Respiratory effort: spontaneous, unlabored. Circulation: Pulses: palpable right radial artery and left radial artery. Disability Alert. Exposure/Environment: There is no evidence of uncontrolled external bleeding. No obvious injuries are noted at this time. 10:30 Reassessment Breathing/Chest Respiratory pattern Regular Circulation Pulses Palpable ab2 Disability Alert. Assessment: 10:25 General: Appears in no apparent distress. comfortable, Behavior is cooperative, ab2 anxious. Pain: Complains of pain in left low back and left mid back Pain currently is 10 out of 10 on a pain scale. Neuro: No deficits noted. Level of Consciousness is awake, alert, obeys commands, Oriented to person, place, time, situation, Appropriate for age Dynamometer Mechanic are equal bilaterally Moves all extremities. Gait is steady, Speech is normal. Cardiovascular: No deficits noted. Denies chest pain, shortness of breath, Heart tones S1 S2 present Patient's skin is warm and dry. Respiratory: Airway is patent Breath sounds are clear bilaterally. GI: No deficits noted. No signs and/or symptoms were reported involving the gastrointestinal system. Abdomen is round non-distended. : No deficits noted. No signs and/or symptoms were reported regarding the genitourinary system. EENT: Reports nasal discharge that is bloody. Derm: Bruising that is dark purple, on left eye. Musculoskeletal: Reports pain in left low back and left mid back since Tuesday. Injury Description: Pt states she was pulled down her stairs by her dog, causing her to fall onto her left side. Vital Signs: 10:16 BP 127 / 81; Pulse 88; Resp 16; Temp 99.0; Pulse Ox 99% ; Weight 63.5 kg; Height 5 ft. ll1 1 in. (154.94 cm); Pain 10/10; 12:30 BP 121 / 77; Pulse 83 MON; Resp 16 S; Pulse Ox 98% on R/A; Pain 7/10; ab2 10:16 Body Mass Index 26.45 (63.50 kg, 154.94 cm) ll1 [place] Coma Score: 10:29 Eye Response: spontaneous(4). Verbal Response: oriented(5). Motor Response: obeys ab2 commands(6). Total: 15. Trauma Score (Adult): 10:28 Eye Response: spontaneous(1); Verbal Response: oriented(1); Motor Response: obeys ab2 commands(2); Systolic BP: > 89 mm Hg(4); Respiratory Rate: 10 to 29 per min(4); [place] Score: 15; Trauma Score: 12 ED Course: 10:14 Patient arrived in ED. ds1 10:14 William Torres MD is Private Physician. ds1 10:19 Triage completed. ll1 10:19 Arm band placed on Patient placed in an exam room, on a stretcher. ll1 10:25 Jose Manuel Lewis is Primary Nurse. ab2 10:29 Fly Pepper PA is PHCP. cp 10:29 Yvette Smith MD is Attending Physician. cp 10:29 No provider procedures requiring assistance completed. ab2 10:29 Patient maintains SpO2 saturation greater than 95% on room air. ab2 10:30 Patient has correct armband on for positive identification. Bed in low position. Call ab2 light in reach. Side rails up X2. 10:31 Thermoregulation: warm blanket given to patient. ab2 11:15 Basic Metabolic Panel Sent. ab2 11:15 CBC with Diff Sent. ab2 11:15 Type And Screen Sent. ab2 11:15 PT-INR Sent. ab2 11:16 Inserted saline lock: 20 gauge in left antecubital area, using aseptic technique. ab2 12:09 CT Traumagram (Head C Spine CAP W Con) In Process Unspecified. EDMS 12:10 CT Facial Bones W/O Con In Process Unspecified. EDMS 13:32 Rhona Pace MD is Referral Physician. cp 13:53 IV discontinued, Pressure dressing applied. mh5 Administered Medications: 11:12 Drug: morphine 4 mg Route: IVP; Site: right antecubital; ab2 12:47 Follow up: Response: No adverse reaction ab2 11:12 Drug: Zofran (Ondansetron) 4 mg Route: IVP; Site: right antecubital; ab2 12:47 Follow up: Response: No adverse reaction ab2 11:12 Drug: NS 0.9% 1000 ml Route: IV; Rate: 1 bolus; Site: right antecubital; ab2 12:47 Follow up: Response: No adverse reaction; IV Status: Completed infusion ab2 Output: 13:12 Urine: 200ml (Voided); Total: 200ml. ab2 Outcome: 13:10 Patient's length of stay in the Emergency Department was greater than 2 hours. AWAITING ab2 TEST RESULTSPatient's length of stay extended due to 13:33 Discharge ordered by MD. cp 14:13 Discharged to home ambulatory. ab2 14:13 Condition: good 14:13 Discharge instructions given to patient, Instructed on discharge instructions, follow up and referral plans. medication usage, Demonstrated understanding of instructions, follow-up care, medications, Prescriptions given X 2. 14:13 Patient left the ED. ab2 Signatures: Dispatcher [employer] EDMS Tiffany Flood ds1 Fly Pepper PA PA cp Martinez, [facility] Marianela Vergara RN RN ll1 Jose Manuel Lewis ab2 Corrections: (The following items were deleted from the chart) 10:20 10:16 BP 127 / 81; Pulse 88bpm; Resp 16bpm; Pulse Ox 99%; 63.5 kg; Height 5 ft. 1 in.; ll1 BMI: 26.4; Pain 06/28; ll1
[2021-10-13 13:44] LABS: Urine Specific Gravity/Preg 1.025 (1.005-1.030)
[2021-10-13 14:24] VITALS: TEMP 99
[2021-10-13 14:25] VITALS: BP 121/77; O2SAT 98
== END 2021-10-13 14:13 | disposition home or self-care (01) ==
LOC: ER 10:11
DX: S02.32XA Fracture of orbital floor, left side, initial encounter for closed fracture (principal); S02.2XXA Fracture of nasal bones, initial encounter for closed fracture; S20.222A Contusion of left back wall of thorax, initial encounter; S20.212A Contusion of left front wall of thorax, initial encounter; W10.9XXA Fall (on) (from) unspecified stairs and steps, initial encounter; F17.210 Nicotine dependence, cigarettes, uncomplicated
CPT/HCPCS: 36415; 70450; 70486; 71260; 72125; 74177; 76377; 80048; 81003; 81025; 85025; 85610; 86850; 86900; 86901; 96361; 96374; 96375; 99284; J2405; J7030; Q9967

== ENCOUNTER 2023-05-08 12:42 | Emergency (ER) | payer OTHER, SELFPAY ==
--- OUTSIDE RECORDS SUMMARY | 2023-05-08 13:02 | XMS REPORT | Continuity of Care Document ---
:1985 Author Organization [facility] t Address [address] [place] [address] Care Team Providers Name Role Phone JOAN DUKE Primary Care Physician Unavailable JOAN DUKE Attending Clinician Unavailable JOAN DUKE Attending Clinician Unavailable Doctor Unassigned, [place] Attending Clinician Unavailable SUNNY LOMAX Attending Clinician Unavailable Sunny Graff Attending Clinician Unknown, Attending Attending Clinician Unavailable Lab, Ang - Db Attending Clinician Unavailable AXEL CONTRERAS Attending Clinician Unavailable ZEINAB HEMPHILL Attending Clinician Unavailable Zeinab Feliciano Attending Clinician Makayla Woodson Attending Clinician MAKAYLA LEE Attending Clinician Unavailable Payers Payer Name Policy Type Policy Number Effective Date Expiration Date S ource Problems Condition Condition Condition Status Onset Resolution Last Treating Co mments Source Name Details Category Date Date Treatment Clinician Date ADHD ADHD Disease Active Univers (attention (attention it y of deficit deficit [place] hyperactiv hyperactiv Me dical ity ity Branch disorder) disorder) Controlled Controlled Disease Active U nivers substance substance [place] signed signed [place] Allergies, Adverse Reactions, Alerts Allergy Allergy Status Severity Reaction(s) Onset Inactive Treating Comm ents Source Name Type Date Date Clinician NO KNOWN Drug Active Univers ALLERGIE Class ity of S [facility] Social History Social Habit Start Date Stop Date Quantity Comments Source History [facility] o f Alcohol Frequency [facility] Branch History [facility] o f Alcohol Std Drinks [facility] History SDOH University o f Alcohol Binge [place] [facility] Gender identity Universit y of [facility] Sexual orientation Univer sity of [facility] History of tobacco Cigarette Smoker University of use [facility] Alcohol intake 2023-04-28 2023-04-28 Current drinker Unive rsity of 00:00:00 00:00:00 of alcohol [place] Medical (finding) Branch History of Social 2023-04-28 2023-04-28 Univers ity of function 00:00:00 00:00:00 [facility] Exposure to 2023-03-16 2023-03-26 Not sure [facility] SARS-CoV-2 (event) 00:00:00 10:20:00 [facility] Cigarettes smoked 2022-05-05 2022-05-05 Univers ity of current (pack per 00:00:00 00:00:00 [place] ) - Reported Branch Cigarette 2022-05-05 2022-05-05 University of pack-years 00:00:00 00:00:00 [facility] Tobacco use and 2022-05-05 2022-05-05 Smokeless Universit y of exposure 00:00:00 00:00:00 tobacco non-user [facility] dical [place] Alcohol Comment 2017-12-26 2017-12-26 socially Universit y of 00:00:00 00:00:00 [facility] Sex [birth year] Universit y of 00:00:00 00:00:00 [facility] Smoking Status Start Date Stop Date Source Smokes tobacco daily 2022-05-05 00:00:00 Univers ity of [facility] Medications Ordered Filled Start Stop Current Ordering Indication Dosage Frequency Signature Comments Components Source Medication Medication Date Date Medication? Clinician (SIG) Name Name dexmethylph Yes [id number] 2.5mg Take 1 Univers enidate 2.5 8-10 tablet by ity of mg tablet 00:00: mouth 00 every Medical morning Branch and at 1200 (noon). ibuprofen Yes [id number] 600mg Take 1 U nivers 600 mg 8-10 tablet by ity of tablet 00:00: mouth 00 every 6 Medical (six) Branch hours as needed for Pain (scale 4-6). dexmethylph 2023-0 Yes [id number] 2.5mg Take 1 Univers enidate 2.5 8-10 tablet by ity of mg tablet 00:00: mouth [place] 00 every Medical morning Branch and at 1200 (noon). ibuprofen 2023-0 Yes [id number] 600mg Take 1 U nivers 600 mg 8-10 tablet by ity of tablet 00:00: mouth [place] 00 every 6 Medical (six) Branch hours as needed for Pain (scale 4-6). dexmethylph 2023-0 Yes [id number] 2.5mg Take 1 Univers enidate 2.5 8-10 tablet by ity of mg tablet 00:00: mouth [place] 00 every Medical morning Branch and at 1200 (noon). ibuprofen 2023-0 Yes [id number] 600mg Take 1 U nivers 600 mg 8-10 tablet by ity of tablet 00:00: mouth [place] 00 every 6 Medical (six) Branch hours as needed for Pain (scale 4-6). dextroamphe 2023-0 Yes [id number] 30mg Take 1 Univers tamine-amph 7-13 tablet by ity of etamine 30 00:00: mouth [place] mg tablet 00 every Medical morning Branch and at 1200 (noon). dextroamphe 2023-0 2023- No [id number] 30mg Take 1 Univers tamine-amph 7-13 08-10 tablet by it y of etamine 30 00:00: 00:00 mouth [place] mg tablet 00 :00 every Medical morning Branch and at 1200 (noon). dextroamphe 2023-0 2023- No [id number] 30mg Take 1 Univers tamine-amph 7-13 08-10 tablet by it y of etamine 30 00:00: 00:00 mouth [place] mg tablet 00 :00 every Medical morning Branch and at 1200 (noon). methylPREDN 2023-0 Yes [id number] follow Univers ISolone 7-08 package ity of (MEDROL, 00:00: directions [place] KETURAH,) 4 mg 00 Medical tablets Branch methylPREDN 2023-0 Yes [id number] follow Univers ISolone 7-08 package ity of (MEDROL, 00:00: directions [place] KETURAH,) 4 mg 00 Medical tablets Branch methylPREDN 2023-0 Yes [id number] follow Univers ISolone 7-08 package ity of (MEDROL, 00:00: directions [place] KETURAH,) 4 mg 00 Medical tablets Branch methylPREDN 2022-0 Yes [id number] follow Univers ISolone 7-08 package ity of (MEDROL, 00:00: directions [place] KETURAH,) 4 mg 00 Medical tablets Branch methylPREDN 2022-0 Yes [id number] follow Univers ISolone 7-08 package ity of (MEDROL, 00:00: directions [place] KETURAH,) 4 mg 00 Medical tablets Branch methylPREDN 2022-0 Yes [id number] follow Univers ISolone 7-08 package ity of (MEDROL, 00:00: directions [place] as KETURAH,) 4 mg 00 Medical tablets Branch cephALEXin 2022-0 2022- Yes [id number] 500mg Take 1 Univers 500 mg 03-26 capsule by ity of capsule 00:00: 04:59 mouth 4 [place] 00 :00 (four) Medical times Branch daily for 5 days. cephALEXin 2022-0 2022- Yes [id number] 500mg Take 1 Univers 500 mg 03-26 capsule by ity of capsule 00:00: 04:59 mouth 4 [place] 00 :00 (four) Medical times Branch daily for 5 days. cephALEXin 2022-0 2022- Yes [id number] 500mg Take 1 Univers 500 mg 03-26 capsule by ity of capsule 00:00: 04:59 mouth 4 [place] 00 :00 (four) Medical times Branch daily for 5 days. acetaminoph 2022-0 2022- Yes [id number] 1{tbl} Take 1 U nivers en-codeine 03-2611 tablet by ity of (TYLENOL-CO 00:00: 04:59 mouth [place] DEINE #3[place] 00 :00 every 6 Medical 300-30 mg (six) Branch tablet hours as needed for Pain (scale 7-10) for up to 2 days. Indication s: acute pain dextroamphe 2023-0 Yes [id number] 30mg Take 1 Univers tamine-amph 6-13 tablet by ity of etamine 30 00:00: mouth [place] mg tablet 00 every Medical morning Branch and at 1200 (noon). dextroamphe 2023-0 Yes [id number] 30mg Take 1 Univers tamine-amph 6-13 tablet by ity of etamine 30 00:00: mouth [place] mg tablet 00 every Medical morning Branch and at 1200 (noon). dextroamphe 2023-0 Yes [id number] 30mg Take 1 Univers tamine-amph 6-13 tablet by ity of etamine 30 00:00: mouth [place] mg tablet 00 every Medical morning Branch and at 1200 (noon). dextroamphe 2023-0 2023- No [id number] 30mg Take 1 Univers tamine-amph 6-13 07-12 tablet by it y of etamine 30 00:00: 00:00 mouth [place] mg tablet 00 :00 every Medical morning Branch and at 1200 (noon). dextroamphe 2023-0 Yes [id number] 30mg Take 1 Univers tamine-amph 5-18 tablet by ity of etamine 30 00:00: mouth [place] mg tablet 00 every Medical morning Branch and at 1200 (noon). dextroamphe 2023-0 Yes [id number] 30mg Take 1 Univers tamine-amph 5-18 tablet by ity of etamine 30 00:00: mouth [place] mg tablet 00 every Medical morning Branch and at 1200 (noon). dextroamphe 2023-0 3- No [id number] 30mg Take 1 Univers tamine-amph 5-18 06-13 tablet by it y of etamine 30 00:00: 00:00 mouth [place] mg tablet 00 :00 every Medical morning Branch and at 1200 (noon). methylpheni 2023-0 Yes [id number] 20mg Take 1 Univers date HCl 20 4-27 tablet by ity of mg tablet 00:00: mouth [place] 00 the Medical morning Branch and 1 tablet in the evening. methylpheni 2023-0 Yes [id number] 20mg Take 1 Univers date HCl 20 4-27 tablet by ity of mg tablet 00:00: mouth [place] 00 the Medical morning Branch and 1 tablet in the evening. methylpheni 2023-0 2023- No [id number] 20mg Take 1 Univers date HCl 20 4-27 05-18 tablet by it y of mg tablet 00:00: 00:00 mouth in [place] 00 :00 the Medical morning Branch and 1 tablet in the evening. methylpheni 2023-0 Yes [id number] 20mg Take 1 Univers date HCl 20 4-17 tablet by ity of mg tablet 00:00: mouth [place] 00 the Medical morning Branch and 1 tablet in the evening. azelastine 2022-0 Yes [id number] 1{spray Use 1 Univers 137 mcg 4-17 } [place] in ity of (0.1 %) 00:00: each [place] nasal spray 00 nostril 2 Med ical (two) Branch times daily as needed. Use in each nostril as directed methylpheni 2022-0 Yes [id number] 20mg Take 1 Univers date HCl 20 4-17 tablet by ity of mg tablet 00:00: mouth [place] 00 the Medical morning Branch and 1 tablet in the evening. azelastine 2022-0 Yes [id number] 1{spray Use 1 Univers 137 mcg 4-17 } [place] in ity of (0.1 %) 00:00: each [place] nasal spray 00 nostril 2 Med ical (two) Branch times daily as needed. Use in each nostril as directed azelastine 2022-0 Yes [id number] 1{spray Use 1 Univers 137 mcg 4-17 } [place] in ity of (0.1 %) 00:00: each [place] nasal spray 00 nostril 2 Med ical (two) Branch times daily as needed. Use in each nostril as directed azelastine 2022-0 Yes [id number] 1{spray Use 1 Univers 137 mcg 4-17 } [place] in ity of (0.1 %) 00:00: each [place] nasal spray 00 nostril 2 Med ical (two) Branch times daily as needed. Use in each nostril as directed azelastine 2022-0 Yes [id number] 1{spray Use 1 Univers 137 mcg 4-17 } [place] in ity of (0.1 %) 00:00: each [place] nasal spray 00 nostril 2 Med ical (two) Branch times daily as needed. Use in each nostril as directed azelastine 2022-0 Yes [id number] 1{spray Use 1 Univers 137 mcg 4-17 } [place] in ity of (0.1 %) 00:00: each [place] nasal spray 00 nostril 2 Med ical (two) Branch times daily as needed. Use in each nostril as directed azelastine 2022-0 Yes [id number] 1{spray Use 1 Univers 137 mcg 4-17 } [place] in ity of (0.1 %) 00:00: each [place] nasal spray 00 nostril 2 Med ical (two) Branch times daily as needed. Use in each nostril as directed azelastine 3-0 Yes [id number] 1{spray Use 1 Univers 137 mcg 4-17 } [place] in ity of (0.1 %) 00:00: each [place] nasal spray 00 nostril 2 Med ical (two) Branch times daily as needed. Use in each nostril as directed azelastine 2022-0 Yes [id number] 1{spray Use 1 Univers 137 mcg 4-17 } [place] in ity of (0.1 %) 00:00: each [place] nasal spray 00 nostril 2 Med ical (two) Branch times daily as needed. Use in each nostril as directed azelastine 2022-0 Yes [id number] 1{spray Use 1 Univers 137 mcg 4-17 } [place] in ity of (0.1 %) 00:00: each [place] nasal spray 00 nostril 2 Med ical (two) Branch times daily as needed. Use in each nostril as directed azelastine 2022-0 Yes [id number] 1{spray Use 1 Univers 137 mcg 4-17 } [place] in ity of (0.1 %) 00:00: each [place] nasal spray 00 nostril 2 Med ical (two) Branch times daily as needed. Use in each nostril as directed azelastine 3-0 Yes [id number] 1{spray Use 1 Univers 137 mcg 4-17 } [place] in ity of (0.1 %) 00:00: each [place] nasal spray 00 nostril 2 Med ical (two) Branch times daily as needed. Use in each nostril as directed azelastine 2022-0 Yes [id number] 1{spray Use 1 Univers 137 mcg 4-17 } [place] in ity of (0.1 %) 00:00: each [place] nasal spray 00 nostril 2 Med ical (two) Branch times daily as needed. Use in each nostril as directed methylpheni 2022-0 2023- No [id number] 20mg Take 1 Univers date HCl 20 4-17 04-27 tablet by it y of mg tablet 00:00: 00:00 mouth in [place] as 00 :00 the Medical morning Branch and 1 tablet in the evening. methylpheni 3-0 2022- No [id number] 20mg Take 1 Univers date HCl 20 4-17 04-27 tablet by it y of mg tablet 00:00: 00:00 mouth in [place] 00 :00 the Medical morning Branch and 1 tablet in the evening. dextroamphe 2022-0 Yes [id number] 30mg Take 1 Univers tamine-amph 3-30 tablet by ity of etamine 30 00:00: mouth [place] mg tablet 00 every Medical morning Branch and at 1200 (noon). dextroamphe 2022-0 2022- No [id number] 30mg Take 1 Univers tamine-amph 3-30 04-17 tablet by it y of etamine 30 00:00: 00:00 mouth [place] mg tablet 00 :00 every Medical morning Branch and at 1200 (noon). dextroamphe 2022-0 2022- No [id number] 30mg Take 1 Univers tamine-amph 3-30 04-17 tablet by it y of etamine 30 00:00: 00:00 mouth [place] mg tablet 00 :00 every Medical morning Branch and at 1200 (noon). azithromyci 2023-0 Yes [id number] Take two Univers n 250 mg 3-09 tablets my ity o f tablet 00:00: mouth 00 today Medical followed Branch by one tablet daily for a total for 5 days azithromyci 2023-0 Yes [id number] Take two Univers n 250 mg 3-09 tablets my ity o f tablet 00:00: mouth 00 today Medical followed Branch by one tablet daily for a total for 5 days azithromyci 2023-0 Yes [id number] Take two Univers n 250 mg 3-09 tablets my ity o f tablet 00:00: mouth 00 today Medical followed Branch by one tablet daily for a total for 5 days azithromyci 2023-0 Yes [id number] Take two Univers n 250 mg 3-09 tablets my ity o f tablet 00:00: mouth 00 today Medical followed Branch by one tablet daily for a total for 5 days azithromyci 2023-0 Yes [id number] Take two Univers n 250 mg 3-09 tablets my ity o f tablet 00:00: mouth today Medical followed Branch by one tablet daily for a total for 5 days azithromyci 2023-0 Yes [id number] Take two Univers n 250 mg 3-09 tablets my ity o f tablet 00:00: mouth [place] 00 today Medical followed Branch by one tablet daily for a total for 5 days azithromyci 2022-0 Yes [id number] Take two Univers n 250 mg 3-09 tablets my ity o f tablet 00:00: mouth [place] 00 today Medical followed Branch by one tablet daily for a total for 5 days azithromyci 2022-0 Yes [id number] Take two Univers n 250 mg 3-09 tablets my ity o f tablet 00:00: mouth [place] 00 today Medical followed Branch by one tablet daily for a total for 5 days azithromyci 2022-0 Yes [id number] Take two Univers n 250 mg 3-09 tablets my ity o f tablet 00:00: mouth [place] 00 today Medical followed Branch by one tablet daily for a total for 5 days azithromyci 2022-0 2023- No [id number] Take two Univers n 250 mg 3-09 07-08 tablets my ity of tablet 00:00: 00:00 mouth [place] 00 :00 today Medical followed Branch by one tablet daily for a total for 5 days bromphenira 0 Yes [id number] 10mL Take 10 mL Univers mine-pseudo 3-02 by mouth 4 it y of ephedrine-D 00:00: (four) [place] M (BROMFED 00 times Medical DM) 2-30-10 daily as Bran ch mg/5 mL needed for syrup Congestion /Allergies . dextroamphe 0 Yes [id number] 30mg Take 1 Univers tamine-amph 3-02 tablet by ity of etamine 30 00:00: mouth [place] mg tablet 00 every Medical morning Branch and at 1200 (noon). albuterol 2022-0 Yes [id number] 2{puff} Inhale 2 Univers 90 3-02 Puffs ity of mcg/actuati 00:00: every 6 [place] on inhaler 00 (six) Medical hours as Branch needed for Wheezing or Shortness of Breath. inhalat.spa 2022-0 Yes [id number] 1{each} 1 Each Univers cing 3-02 every 6 ity of dev,large 00:00: (six) [place] mask 00 hours as Medical (BREATHERIT needed for Br anch E Other SPACER-MASK (Shortness ,ADULT) of breath; Spcr use as directed with inhaler). May substitute bromphenira 2023-0 Yes [id number] 10mL Take 10 mL Univers mine-pseudo 3-02 by mouth 4 it y of ephedrine-D 00:00: (four) [place] M (BROMFED 00 times Medical DM) 2-30-10 daily as Bran ch mg/5 mL needed for syrup Congestion /Allergies . dextroamphe 2023-0 Yes [id number] 30mg Take 1 Univers tamine-amph 3-02 tablet by ity of etamine 30 00:00: mouth [place] mg tablet 00 every Medical morning Branch and at 1200 (noon). albuterol 2023-0 Yes [id number] 2{puff} Inhale 2 Univers 90 3-02 Puffs ity of mcg/actuati 00:00: every 6 [place] on inhaler 00 (six) Medical hours as Branch needed for Wheezing or Shortness of Breath. inhalat.spa 2022-0 Yes [id number] 1{each} 1 Each Univers cing 3-02 every 6 ity of dev,large 00:00: (six) [place] mask 00 hours as Medical (BREATHERIT needed for Br anch E Other SPACER-MASK (Shortness ,ADULT) of breath; Spcr use as directed with inhaler). May substitute bromphenira 2023-0 Yes [id number] 10mL Take 10 mL Univers mine-pseudo 3-02 by mouth 4 it y of ephedrine-D 00:00: (four) [place] M (BROMFED 00 times Medical DM) 2-30-10 daily as Bran ch mg/5 mL needed for syrup Congestion /Allergies . dextroamphe 2023-0 Yes [id number] 30mg Take 1 Univers tamine-amph 3-02 tablet by ity of etamine 30 00:00: mouth [place] mg tablet 00 every Medical morning Branch and at 1200 (noon). albuterol 2023-0 Yes [id number] 2{puff} Inhale 2 Univers 90 3-02 Puffs ity of mcg/actuati 00:00: every 6 [place] on inhaler 00 (six) Medical hours as Branch needed for Wheezing or Shortness of Breath. inhalat.spa 2022-0 Yes [id number] 1{each} 1 Each Univers cing 3-02 every 6 ity of dev,large 00:00: (six) [place] mask 00 hours as Medical (BREATHERIT needed for Br anch E Other SPACER-MASK (Shortness ,ADULT) of breath; Spcr use as directed with inhaler). May substitute bromphenira 2023-0 Yes [id number] 10mL Take 10 mL Univers mine-pseudo 3-02 by mouth 4 it y of ephedrine-D 00:00: (four) [place] M (BROMFED 00 times Medical DM) 2-30-10 daily as Bran ch mg/5 mL needed for syrup Congestion /Allergies . dextroamphe 2023-0 Yes [id number] 30mg Take 1 Univers tamine-amph 3-02 tablet by ity of etamine 30 00:00: mouth [place] mg tablet 00 every Medical morning Branch and at 1200 (noon). albuterol 2022-0 Yes [id number] 2{puff} Inhale 2 Univers 90 3-02 Puffs ity of mcg/actuati 00:00: every 6 [place] on inhaler 00 (six) Medical hours as Branch needed for Wheezing or Shortness of Breath. inhalat.spa Yes [id number] 1{each} 1 Each Univers cing 3-02 every 6 ity of dev,large 00:00: (six) [place] mask 00 hours as Medical (BREATHERIT needed for Br anch E Other SPACER-MASK (Shortness ,ADULT) of breath; Spcr use as directed with inhaler). May substitute bromphenira 3-0 Yes [id number] 10mL Take 10 mL Univers mine-pseudo 3-02 by mouth 4 it y of ephedrine-D 00:00: (four) [place] M (BROMFED 00 times Medical DM) 2-30-10 daily as Bran ch mg/5 mL needed for syrup Congestion /Allergies . albuterol 2022-0 Yes [id number] 2{puff} Inhale 2 Univers 90 3-02 Puffs ity of mcg/actuati 00:00: every 6 [place] on inhaler 00 (six) Medical hours as Branch needed for Wheezing or Shortness of Breath. inhalat.spa 0 Yes [id number] 1{each} 1 Each Univers cing 3-02 every 6 ity of dev,large 00:00: (six) [place] mask 00 hours as Medical (BREATHERIT needed for Br anch E Other SPACER-MASK (Shortness ,ADULT) of breath; Spcr use as directed with inhaler). May substitute bromphenira 2023-0 Yes [id number] 10mL Take 10 mL Univers mine-pseudo 3-02 by mouth 4 it y of ephedrine-D 00:00: (four) [place] M (BROMFED 00 times Medical DM) 2-30-10 daily as Bran ch mg/5 mL needed for syrup Congestion /Allergies . albuterol 2022-0 Yes [id number] 2{puff} Inhale 2 Univers 90 3-02 Puffs ity of mcg/actuati 00:00: every 6 [place] on inhaler 00 (six) Medical hours as Branch needed for Wheezing or Shortness of Breath. inhalat.spa 0 Yes [id number] 1{each} 1 Each Univers cing 3-02 every 6 ity of dev,large 00:00: (six) [place] mask 00 hours as Medical (BREATHERIT needed for Br anch E Other SPACER-MASK (Shortness ,ADULT) of breath; Spcr use as directed with inhaler). May substitute bromphenira 2023-0 Yes [id number] 10mL Take 10 mL Univers mine-pseudo 3-02 by mouth 4 it y of ephedrine-D 00:00: (four) [place] M (BROMFED 00 times Medical DM) 2-30-10 daily as Bran ch mg/5 mL needed for syrup Congestion /Allergies . albuterol 2022-0 Yes [id number] 2{puff} Inhale 2 Univers 90 3-02 Puffs ity of mcg/actuati 00:00: every 6 [place] on inhaler 00 (six) Medical hours as Branch needed for Wheezing or Shortness of Breath. inhalat.spa 2022-0 Yes [id number] 1{each} 1 Each Univers cing 3-02 every 6 ity of dev,large 00:00: (six) [place] mask 00 hours as Medical (BREATHERIT needed for Br anch E Other SPACER-MASK (Shortness ,ADULT) of breath; Spcr use as directed with inhaler). May substitute bromphenira 2023-0 Yes [id number] 10mL Take 10 mL Univers mine-pseudo 3-02 by mouth 4 it y of ephedrine-D 00:00: (four) [place] M (BROMFED 00 times Medical DM) 2-30-10 daily as Bran ch mg/5 mL needed for syrup Congestion /Allergies . albuterol 2022-0 Yes [id number] 2{puff} Inhale 2 Univers 90 3-02 Puffs ity of mcg/actuati 00:00: every 6 [place] on inhaler 00 (six) Medical hours as Branch needed for Wheezing or Shortness of Breath. inhalat.spa 0 Yes [id number] 1{each} 1 Each Univers cing 3-02 every 6 ity of dev,large 00:00: (six) [place] mask 00 hours as Medical (BREATHERIT needed for Br anch E Other SPACER-MASK (Shortness ,ADULT) of breath; Spcr use as directed with inhaler). May substitute bromphenira 2023-0 Yes [id number] 10mL Take 10 mL Univers mine-pseudo 3-02 by mouth 4 it y of ephedrine-D 00:00: (four) [place] M (BROMFED 00 times Medical DM) 2-30-10 daily as Bran ch mg/5 mL needed for syrup Congestion /Allergies . albuterol 2022-0 Yes [id number] 2{puff} Inhale 2 Univers 90 3-02 Puffs ity of mcg/actuati 00:00: every 6 [place] on inhaler 00 (six) Medical hours as Branch needed for Wheezing or Shortness of Breath. inhalat.spa 0 Yes [id number] 1{each} 1 Each Univers cing 3-02 every 6 ity of dev,large 00:00: (six) [place] mask 00 hours as Medical (BREATHERIT needed for Br anch E Other SPACER-MASK (Shortness ,ADULT) of breath; Spcr use as directed with inhaler). May substitute bromphenira 2023-0 Yes [id number] 10mL Take 10 mL Univers mine-pseudo 3-02 by mouth 4 it y of ephedrine-D 00:00: (four) [place] M (BROMFED 00 times Medical DM) 2-30-10 daily as Bran ch mg/5 mL needed for syrup Congestion /Allergies . albuterol 3-0 Yes [id number] 2{puff} Inhale 2 Univers 90 3-02 Puffs ity of mcg/actuati 00:00: every 6 [place] on inhaler 00 (six) Medical hours as Branch needed for Wheezing or Shortness of Breath. inhalat.spa Yes [id number] 1{each} 1 Each Univers cing 3-02 every 6 ity of dev,large 00:00: (six) [place] mask 00 hours as Medical (BREATHERIT needed for Br anch E Other SPACER-MASK (Shortness ,ADULT) of breath; Spcr use as directed with inhaler). May substitute bromphenira 2022-0 Yes [id number] 10mL Take 10 mL Univers mine-pseudo 3-02 by mouth 4 it y of ephedrine-D 00:00: (four) [place] M (BROMFED 00 times Medical DM) 2-30-10 daily as Bran ch mg/5 mL needed for syrup Congestion /Allergies . albuterol 2022-0 Yes [id number] 2{puff} Inhale 2 Univers 90 3-02 Puffs ity of mcg/actuati 00:00: every 6 [place] on inhaler 00 (six) Medical hours as Branch needed for Wheezing or Shortness of Breath. inhalat.spa Yes [id number] 1{each} 1 Each Univers cing 3-02 every 6 ity of dev,large 00:00: (six) [place] mask 00 hours as Medical (BREATHERIT needed for Br anch E Other SPACER-MASK (Shortness ,ADULT) of breath; Spcr use as directed with inhaler). May substitute bromphenira 3-0 Yes [id number] 10mL Take 10 mL Univers mine-pseudo 3-02 by mouth 4 it y of ephedrine-D 00:00: (four) [place] M (BROMFED 00 times Medical DM) 2-30-10 daily as Bran ch mg/5 mL needed for syrup Congestion /Allergies . albuterol 2022-0 Yes [id number] 2{puff} Inhale 2 Univers 90 3-02 Puffs ity of mcg/actuati 00:00: every 6 [place] as on inhaler 00 (six) Medical hours as Branch needed for Wheezing or Shortness of Breath. inhalat.spa 0 Yes [id number] 1{each} 1 Each [facility] cing 3-02 every 6 ity of dev,large 00:00: (six) [place] mask 00 hours as Medical (BREATHERIT needed for Br anch E Other SPACER-MASK (Shortness ,ADULT) of breath; Spcr use as directed with inhaler). May substitute albuterol Yes [id number] 2{puff} Inhale 2 Univers 90 3-02 Puffs ity of mcg/actuati 00:00: every 6 [place] as on inhaler 00 (six) Medical hours as Branch needed for Wheezing or Shortness of Breath. inhalat.spa Yes [id number] 1{each} 1 Each Univers cing 3-02 every 6 ity of dev,large 00:00: (six) [place] mask 00 hours as Medical (BREATHERIT needed for Br anch E Other SPACER-MASK (Shortness ,ADULT) of breath; Spcr use as directed with inhaler). May substitute albuterol Yes [id number] 2{puff} Inhale 2 [facility] 90 3-02 Puffs ity of mcg/actuati 00:00: every 6 [place] as on inhaler 00 (six) Medical hours as Branch needed for Wheezing or Shortness of Breath. inhalat.spa Yes [id number] 1{each} 1 Each [facility] cing 3-02 every 6 ity of dev,large 00:00: (six) [place] mask 00 hours as Medical (BREATHERIT needed for Br anch E Other SPACER-MASK (Shortness ,ADULT) of breath; Spcr use as directed with inhaler). May substitute albuterol Yes [id number] 2{puff} Inhale 2 [facility] 90 3-02 Puffs ity of mcg/actuati 00:00: every 6 [place] as on inhaler 00 (six) Medical hours as Branch needed for Wheezing or Shortness of Breath. inhalat.spa Yes [id number] 1{each} 1 Each [facility] cing 3-02 every 6 ity of dev,large 00:00: (six) [place] mask 00 hours as Medical (BREATHERIT needed for Br anch E Other SPACER-MASK (Shortness ,ADULT) of breath; Spcr use as directed with inhaler). May substitute albuterol Yes [id number] 2{puff} Inhale 2 [facility] 90 3-02 Puffs ity of mcg/actuati 00:00: every 6 [place] as on inhaler 00 (six) Medical hours as Branch needed for Wheezing or Shortness of Breath. inhalat.spa Yes [id number] 1{each} 1 Each [facility] cing 3-02 every 6 ity of dev,large 00:00: (six) [place] mask 00 hours as Medical (BREATHERIT needed for Br anch E Other SPACER-MASK (Shortness ,ADULT) of breath; Spcr use as directed with inhaler). May substitute albuterol Yes [id number] 2{puff} Inhale 2 [facility] 90 3-02 Puffs ity of mcg/actuati 00:00: every 6 [place] as on inhaler 00 (six) Medical hours as Branch needed for Wheezing or Shortness of Breath. inhalat.spa Yes [id number] 1{each} 1 Each [facility] cing 3-02 every 6 ity of dev,large 00:00: (six) [place] mask 00 hours as Medical (BREATHERIT needed for Br anch E Other SPACER-MASK (Shortness ,ADULT) of breath; Spcr use as directed with inhaler). May substitute albuterol Yes [id number] 2{puff} Inhale 2 [facility] 90 3-02 Puffs ity of mcg/actuati 00:00: every 6 [place] as on inhaler 00 (six) Medical hours as Branch needed for Wheezing or Shortness of Breath. inhalat.spa Yes [id number] 1{each} 1 Each [facility] cing 3-02 every 6 ity of dev,large 00:00: (six) [place] mask 00 hours as Medical (BREATHERIT needed for Br anch E Other SPACER-MASK (Shortness ,ADULT) of breath; Spcr use as directed with inhaler). May substitute bromphenira 2022- No [id number] 10mL Take 10 mL [facility] mine-pseudo 11-1808 by mouth 4 i ty of ephedrine-D 00:00: 00:00 (four) [place] as M (BROMFED 00 :00 times Medical DM) 2-30-10 daily as Bran ch mg/5 mL needed for syrup Congestion /Allergies . dextroamphe 2022- No [id number] 30mg Take 1 [facility] tamine-amph 11-1828 tablet by it y of etamine 30 00:00: 00:00 mouth [place] mg tablet 00 :00 every Medical morning Branch and at 1200 (noon). amphetamine 2022-0 Yes [id number] 30mg Take 2 [facility] -dextroamph 2-01 capsules ity of etamine 15 00:00: by mouth [place] as mg 24 hr 00 every Medical capsule morning. Branch amphetamine 2022-0 Yes [id number] 30mg Take 2 [facility] -dextroamph 2-01 capsules ity of etamine 15 00:00: by mouth [place] as mg 24 hr 00 every Medical capsule morning. Branch amphetamine 2022- No [id number] 30mg Take 2 [facility] -dextroamph 2-01 03-02 capsules ity of etamine 15 00:00: 00:00 by mouth [place] mg 24 hr 00 :00 every Medical capsule morning. Branch amphetamine 2022- No [id number] 30mg Take 2 [facility] -dextroamph 2-01 03-02 capsules ity of etamine 15 00:00: 00:00 by mouth [place] mg 24 hr 00 :00 every Medical capsule morning. Branch amphetamine 2022-0 Yes [id number] 15mg Take 1 [facility] -dextroamph 1-24 capsule by it y of etamine 15 00:00: mouth [place] mg 24 hr 00 every Medical capsule morning. Branch May increase to two capsule daily if no improvemen t amphetamine 2022-2022- No [id number] 15mg Take 1 [facility] -dextroamph 1-24 02-01 capsule by i ty of etamine 15 00:00: 00:00 mouth [place] mg 24 hr 00 :00 every Medical capsule morning. Branch May increase to two capsule daily if no improvemen t amphetamine 2022-0 Yes [id number] 20mg Take 20 mg [facility] sulfate 1-20 by mouth ity of (EVEKEO) 10 00:00: every [place] mg Tab 00 morning Medical and at Branch 1200 (noon). amphetamine 2022-0 Yes [id number] 20mg Take 20 mg [facility] sulfate 1-20 by mouth ity of (EVEKEO) 10 00:00: every [place] mg Tab 00 morning Medical and at Branch 1200 (noon). amphetamine 2022-0 Yes [id number] 20mg Take 20 mg [facility] sulfate 1-20 by mouth ity of (EVEKEO) 10 00:00: every [place] mg Tab 00 morning Medical and at Branch 1200 (noon). amphetamine 2022-2022- No [id number] 20mg Take 20 mg [facility] sulfate 1-20 01-24 by mouth ity of (EVEKEO) 10 00:00: 00:00 [place] mg Tab 00 :00 morning Medical and at Branch 1200 (noon). amphetamine 2022-0 2023- No [id number] 20mg Take 20 mg [facility] sulfate 1-20 01-24 by mouth ity of (EVEKEO) 10 00:00: 00:00 [place] mg Tab 00 :00 morning Medical and at Branch 1200 (noon). amphetamine 2022-0 Yes [id number] 10mg Take 10 mg [facility] sulfate 1-10 by mouth ity of (EVEKEO) 10 00:00: every [place] mg Tab 00 morning Medical and at Branch 1200 (noon). amphetamine 2022-0 Yes [id number] 10mg Take 10 mg [facility] sulfate 1-10 by mouth ity of (EVEKEO) 10 00:00: every [place] mg Tab 00 morning Medical and at Branch 1200 (noon). amphetamine 2022-0 Yes [id number] 10mg Take 10 mg [facility] sulfate 1-10 by mouth ity of (EVEKEO) 10 00:00: every [place] mg Tab 00 morning Medical and at Branch 1200 (noon). amphetamine 2022-0 Yes [id number] 10mg Take 10 mg [facility] sulfate 1-10 by mouth ity of (EVEKEO) 10 00:00: every [place] mg Tab 00 morning Medical and at Branch 1200 (noon). amphetamine 2022-0 2023- No [id number] 10mg Take 10 mg [facility] sulfate 1-10 01-20 by mouth ity of (EVEKEO) 10 00:00: 00:00 [place] mg Tab 00 :00 morning Medical and at Branch 1200 (noon). amphetamine 2022-0 2023- No [id number] 10mg Take 10 mg [facility] sulfate 1-10 01-20 by mouth ity of (EVEKEO) 10 00:00: 00:00 [place] mg Tab 00 :00 morning Medical and at Branch 1200 (noon). amphetamine 2022-0 2023- No [id number] 10mg Take 10 mg [facility] sulfate 1-10 01-20 by mouth ity of (EVEKEO) 10 00:00: 00:00 [place] mg Tab 00 :00 morning Medical and at Branch 1200 (noon). amphetamine 2022- No [id number] 10mg Take 10 mg [facility] sulfate 1-10 -20 by mouth ity of (EVEKEO) 10 00:00: 00:00 [place] mg Tab 00 :00 morning Medical and at Branch 1200 (noon). dextroamphe 2021-09 Yes [id number] 15mg Take 2 [facility] tamine-amph 2-30 tablets by it y of etamine 00:00: mouth [place] (ADDERALL) 00 every Medical 7.5 mg morning Branch tablet and at 1200 (noon). dextroamphe 2021-09- No [id number] 15mg Take 2 [facility] tamine-amph 2-30 01-10 tablets by i ty of etamine 00:00: 00:00 mouth [place] (ADDERALL) 00 :00 every Medical 7.5 mg morning Branch tablet and at 1200 (noon). dextroamphe 2021-09- No [id number] 15mg Take 2 [facility] tamine-amph 2-30 01-10 tablets by i ty of etamine 00:00: 00:00 mouth [place] (ADDERALL) 00 :00 every Medical 7.5 mg morning Branch tablet and at 1200 (noon). dextroamphe 2021-09- No [id number] 15mg Take 2 [facility] tamine-amph 2-30 01-10 tablets by i ty of etamine 00:00: 00:00 mouth [place] (ADDERALL) 00 :00 every Medical 7.5 mg morning Branch tablet and at 1200 (noon). dextroamphe 2021-09- No [id number] 15mg Take 2 [facility] tamine-amph 2-30 01-10 tablets by i ty of etamine 00:00: 00:00 mouth [place] (ADDERALL) 00 :00 every Medical 7.5 mg morning Branch tablet and at 1200 (noon). dextroamphe 2021-09- No [id number] 15mg Take 2 [facility] tamine-amph 2-30 01-10 tablets by i ty of etamine 00:00: 00:00 mouth [place] (ADDERALL) 00 :00 every Medical 7.5 mg morning Branch tablet and at 1200 (noon). dextroamphe 2021-09- No [id number] 15mg Take 2 [facility] tamine-amph 2-30 01-10 tablets by i ty of etamine 00:00: 00:00 mouth [place] (ADDERALL) 00 :00 every Medical 7.5 mg morning Branch tablet and at 1200 (noon). dextroamphe 2021-09 Yes [id number] TAKE ONE [facility] tamine-amph 2-09 (1) ity of etamine 30 00:00: TABLET(S) [place] mg tablet 00 BY MOUTH Medica l EVERY Branch MORNING AND AT NOON. dextroamphe 2021-09 Yes [id number] TAKE ONE [facility] tamine-amph 2-09 (1) ity of etamine 30 00:00: TABLET(S) [place] mg tablet 00 BY MOUTH Medica l EVERY Branch MORNING AND AT NOON. dextroamphe 2021-09 Yes [id number] TAKE ONE [facility] tamine-amph 2-09 (1) ity of etamine 30 00:00: TABLET(S) [place] mg tablet 00 BY MOUTH Medica l EVERY Branch MORNING AND AT NOON. dextroamphe 2021-09 Yes [id number] 15mg Take 1 [facility] tamine 2-09 capsule by ity of sulfate 15 00:00: mouth in [place] as mg 24 hr 00 the Medical capsule morning. Branch dextroamphe 2021-09 Yes [id number] 15mg Take 1 [facility] tamine 2-09 capsule by ity of sulfate 15 00:00: mouth in [place] as mg 24 hr 00 the Medical capsule morning. Branch dextroamphe 2021-09 Yes [id number] 15mg Take 1 [facility] tamine 2-09 capsule by ity of sulfate 15 00:00: mouth in [place] as mg 24 hr 00 the Medical capsule morning. Branch dextroamphe 2021-09 Yes [id number] 15mg Take 1 [facility] tamine 2-09 capsule by ity of sulfate 15 00:00: mouth in [place] as mg 24 hr 00 the Medical capsule morning. Branch dextroamphe 2021-09 Yes [id number] 15mg Take 1 [facility] tamine 2-09 capsule by ity of sulfate 15 00:00: mouth in [place] as mg 24 hr 00 the Medical capsule morning. Branch dextroamphe 2021-09 [id number] 15mg Take 1 [facility] tamine 2-09 12-30 capsule by ity of sulfate 15 00:00: 00:00 mouth in [place] mg 24 hr 00 :00 the Medical capsule morning. Branch dextroamphe 2021-09- No [id number] TAKE ONE [facility] tamine-amph 10-28 (1) ity of etamine 30 00:00: 00:00 TABLET(S) [place] mg tablet 00 :00 BY MOUTH Medica l EVERY Branch MORNING AND AT NOON. dextroamphe 2021-09 Yes [id number] TAKE ONE [facility] tamine-amph 09-27 (1) ity of etamine 30 00:00: TABLET(S) [place] mg tablet 00 BY MOUTH Medica l EVERY Branch MORNING AND AT NOON. dextroamphe 2021-09- No [id number] TAKE ONE [facility] tamine-amph 09-27 (1) ity of etamine 30 00:00: 00:00 TABLET(S) [place] mg tablet 00 :00 BY MOUTH Medica l EVERY Branch MORNING AND AT NOON. dextroamphe 2021-09- No [id number] TAKE ONE [facility] tamine-amph 09-27 (1) ity of etamine 30 00:00: 00:00 TABLET(S) [place] mg tablet 00 :00 BY MOUTH Medica l EVERY Branch MORNING AND AT NOON. dextroamphe 2021-09- No [id number] TAKE ONE [facility] tamine-amph 09-27 (1) ity of etamine 30 00:00: 00:00 TABLET(S) [place] mg tablet 00 :00 BY MOUTH Medica l EVERY Branch MORNING AND AT NOON. dextroamphe 2021-09- No [id number] TAKE ONE [facility] tamine-amph 09-27 (1) ity of etamine 30 00:00: 00:00 TABLET(S) [place] mg tablet 00 :00 BY MOUTH Medica l EVERY Branch MORNING AND AT NOON. methylPREDN 2021-09- No [id number] 80mg U nivers ISolone 0-19 10-20 ity of acetate 19:00: 06:59 [place] (DEPO-MEDRO 00 :00 Medical L) Branch injection 80 mg methylPREDN 2021-09- No [id number] 80mg U nivers ISolone 0-19 10-19 ity of acetate 19:00: 18:34 [place] (DEPO-MEDRO 00 :00 Medical L) Branch injection 80 mg methylPREDN 2021-09- No [id number] 80mg 80 mg, Univers ISolone 0-19 - Intramuscu ity o f acetate 19:00: 18:34 lar, ONCE, [place] as (DEPO-MEDRO 00 :00 1 dose, On Me dical L) Wed Branch injection 07/07/22 80 mg at 1400, Routine methylPREDN 2021-09- No [id number] 80mg U nivers ISolone 0-19 07-07 ity of acetate 19:00: 18:34 [place] (DEPO-MEDRO 00 :00 Medical L) Branch injection 80 mg methylPREDN 2021-09- No [id number] 80mg 80 mg, Univers ISolone 0-07-07 Intramuscu ity o f acetate 19:00: 18:34 [place], ONCE, [place] (DEPO-MEDRO 00 :00 1 dose, On Me dical L) Wed Branch injection 07/07/22 80 mg at 1400, Routine benzonatate 2021-09 Yes [id number] 100mg Take 1 Univers (TESSALON 0-19 capsule by ity of PERLES) 100 00:00: mouth 3 [place] as mg capsule 00 (three) Medica l times Branch daily as needed for Cough. azelastine 2021-09 Yes [id number] 1{spray Use 1 [facility] 137 mcg 0-19 } [place] ity of (0.1 %) 00:00: each [place] [facility] and 1 [place] in the evening. Use in each nostril as directed benzonatate 2021-09 Yes [id number] 100mg Take 1 Univers (TESSALON 0-19 capsule by ity of PERLES) 100 00:00: mouth 3 [place] mg capsule 00 (three) Medica l times Branch daily as needed for Cough. azelastine 2021-09 Yes [id number] 1{spray Use 1 [facility] 137 mcg 0-19 } [place] in ity of (0.1 %) 00:00: each [place] nasal [facility] and 1 [place] in the evening. Use in each nostril as directed benzonatate 2021-09 Yes [id number] 100mg Take 1 [facility] (TESSALON 0-19 capsule by itkyle of CORTEZ) 100 00:00: mouth 3 [place] as mg capsule 00 (three) Medica l times Branch daily as needed for Cough. azelastine 2021-09 Yes [id number] 1{spray Use 1 [facility] 137 mcg 0-19 } [place] in ity of (0.1 %) 00:00: each [place] nasal spray 00 nostril in [facility] [place] morning and 1 [place] in the evening. Use in each nostril as directed benzonatate 2021-09 Yes [id number] 100mg Take 1 Univers (TESSALON 0-19 capsule by itkyle of CORTEZ) 100 00:00: mouth 3 [place] mg capsule 00 (three) Medica l times Branch daily as needed for Cough. azelastine 2021-09 Yes [id number] 1{spray Use 1 [facility] 137 mcg 0-19 } [place] in ity of (0.1 %) 00:00: each [place] nasal spray 00 nostril in [facility] the [place] morning and 1 [place] in the evening. Use in each nostril as directed azelastine 2021-09 Yes [id number] 1{spray Use 1 [facility] 137 mcg 0-19 } [place] in ity of (0.1 %) 00:00: each [place] nasal spray 00 nostril in [facility] [place] morning and 1 [place] in the evening. Use in each nostril as directed azelastine 2021-09 Yes [id number] 1{spray Use 1 [facility] 137 mcg 0-19 } [place] in ity of (0.1 %) 00:00: each [place] nasal spray 00 nostril in [facility] [place] morning and 1 [place] in the evening. Use in each nostril as directed azelastine 2021-09 Yes [id number] 1{spray Use 1 [facility] 137 mcg 0-19 } [place] in ity of (0.1 %) 00:00: each [place] nasal spray 00 nostril in [facility] the Branch morning and 1 [place] in the evening. Use in each nostril as directed azelastine 2021-09 Yes [id number] 1{spray Use 1 [facility] 137 mcg 0-19 } [place] in ity of (0.1 %) 00:00: each [place] nasal spray 00 nostril in Me dical the Branch morning and 1 [place] in the evening. Use in each nostril as directed azelastine 2021- Yes [id number] 1{spray Use 1 [facility] 137 mcg 0-19 } [place] in ity of (0.1 %) 00:00: each [place] nasal spray 00 nostril in Me dical the Branch morning and 1 [place] in the evening. Use in each nostril as directed azelastine 2021- Yes [id number] 1{spray Use 1 [facility] 137 mcg 0-19 } [place] in ity of (0.1 %) 00:00: each [place] nasal spray 00 nostril in Me dical the Branch morning and 1 [place] in the evening. Use in each nostril as directed azelastine 2021- Yes [id number] 1{spray Use 1 [facility] 137 mcg 0-19 } [place] in ity of (0.1 %) 00:00: each [place] nasal spray 00 nostril in Me dical the Branch morning and 1 [place] in the evening. Use in each nostril as directed azelastine 2021- Yes [id number] 1{spray Use 1 [facility] 137 mcg 0-19 } [place] in ity of (0.1 %) 00:00: each [place] nasal spray 00 nostril in Me dical the Branch morning and 1 [place] in the evening. Use in each nostril as directed azelastine 2021-1 Yes [id number] 1{spray Use 1 [facility] 137 mcg 0-19 } [place] in ity of (0.1 %) 00:00: each [place] nasal spray 00 nostril in Me dical the Branch morning and 1 [place] in the evening. Use in each nostril as directed azelastine 2021- Yes [id number] 1{spray Use 1 [facility] 137 mcg 0-19 } [place] in ity of (0.1 %) 00:00: each [place] nasal spray 00 nostril in Me dical the Branch morning and 1 [place] in the evening. Use in each nostril as directed azelastine 2021- Yes [id number] 1{spray Use 1 [facility] 137 mcg 0-19 } [place] in ity of (0.1 %) 00:00: each [place] nasal spray 00 nostril in Me dical the Branch morning and 1 [place] in the evening. Use in each nostril as directed azelastine 2021- Yes [id number] 1{spray Use 1 [facility] 137 mcg 0-19 } [place] in ity of (0.1 %) 00:00: each [place] nasal spray 00 nostril in Me dical the Branch morning and 1 [place] in the evening. Use in each nostril as directed azelastine 2021- Yes [id number] 1{spray Use 1 [facility] 137 mcg 0-19 } [place] in ity of (0.1 %) 00:00: each [place] nasal spray 00 nostril in Me dical the Branch morning and 1 [place] in the evening. Use in each nostril as directed azelastine 2021- Yes [id number] 1{spray Use 1 [facility] 137 mcg 0-19 } [place] in ity of (0.1 %) 00:00: each [place] nasal spray 00 nostril in Me dical the Branch morning and 1 [place] in the evening. Use in each nostril as directed azelastine 2021- Yes [id number] 1{spray Use 1 [facility] 137 mcg 0-19 } [place] in ity of (0.1 %) 00:00: each [place] nasal spray 00 nostril in Me dical the Branch morning and 1 [place] in the evening. Use in each nostril as directed azelastine 2021- Yes [id number] 1{spray Use 1 [facility] 137 mcg 0-19 } [place] in ity of (0.1 %) 00:00: each [place] nasal spray 00 nostril in Me dical the Branch morning and 1 [place] in the evening. Use in each nostril as directed azelastine 2021-1 Yes [id number] 1{spray Use 1 [facility] 137 mcg 0-19 } [place] in ity of (0.1 %) 00:00: each [place] nasal spray 00 nostril in Me dical the Branch morning and 1 [place] in the evening. Use in each nostril as directed azelastine 2021- Yes [id number] 1{spray Use 1 [facility] 137 mcg 0-19 } [place] in ity of (0.1 %) 00:00: each [place] nasal spray 00 nostril in Me dical the Branch morning and 1 [place] in the evening. Use in each nostril as directed azelastine 2021- Yes [id number] 1{spray Use 1 [facility] 137 mcg 0-19 } [place] in ity of (0.1 %) 00:00: each [place] nasal spray 00 nostril in Me dical the Branch morning and 1 [place] in the evening. Use in each nostril as directed azelastine 2021- Yes [id number] 1{spray Use 1 [facility] 137 mcg 0-19 } [place] in ity of (0.1 %) 00:00: each [place] nasal spray 00 nostril in Me dical the Branch morning and 1 [place] in the evening. Use in each nostril as directed azelastine 2021- Yes [id number] 1{spray Use 1 [facility] 137 mcg 0-19 } [place] in ity of (0.1 %) 00:00: each [place] nasal spray 00 nostril in Me dical the Branch morning and 1 [place] in the evening. Use in each nostril as directed azelastine 2021-09 Yes [id number] 1{spray Use 1 [facility] 137 mcg 0-19 } [place] in ity of (0.1 %) 00:00: each [place] nasal spray 00 nostril in Me dical the Branch morning and 1 [place] in the evening. Use in each nostril as directed azelastine 2021-09 Yes [id number] 1{spray Use 1 [facility] 137 mcg 0-19 } [place] in ity of (0.1 %) 00:00: each [place] nasal spray 00 nostril in Me dical the Branch morning and 1 [place] in the evening. Use in each nostril as directed azelastine 2021- Yes [id number] 1{spray Use 1 [facility] 137 mcg 0-19 } [place] in ity of (0.1 %) 00:00: each [place] nasal spray 00 nostril in Me dical the Branch morning and 1 [place] in the evening. Use in each nostril as directed azelastine 2021- Yes [id number] 1{spray Use 1 [facility] 137 mcg 0-19 } [place] in ity of (0.1 %) 00:00: each [place] nasal spray 00 nostril in Me dical the Branch morning and 1 [place] in the evening. Use in each nostril as directed azelastine 2021- Yes [id number] 1{spray Use 1 [facility] 137 mcg 0-19 } [place] in ity of (0.1 %) 00:00: each [place] nasal spray 00 nostril in Mn dical the Branch morning and 1 [place] in the evening. Use in each nostril as directed azelastine 2021-09- No [id number] 1{spray Use 1 [facility] 137 mcg 0-19 04-17 } [place] in ity of (0.1 %) 00:00: 00:00 each [place] nasal spray 00 :00 nostril in Mn dical the Branch morning and 1 [place] in the evening. Use in each nostril as directed azelastine 2021-09- No [id number] 1{spray Use 1 [facility] 137 mcg 0-19 04-17 } [place] in ity of (0.1 %) 00:00: 00:00 each [place] nasal spray 00 :00 nostril in Mn dical the Branch morning and 1 [place] in the evening. Use in each nostril as directed benzonatate 2021-09- No [id number] 100mg Take 1 [facility] (TESSALON 0-19 12-09 capsule by itkyle of CORTEZ) 100 00:00: 00:00 mouth 3 [place] mg capsule 00 :00 (three) Medica l times Branch daily as needed for Cough. benzonatate 2021-09- No [id number] 100mg Take 1 [facility] (TESSALON 0-19 12-09 capsule by itkyle of PERLFATEMEH) 100 00:00: 00:00 mouth 3 [place] mg capsule 00 :00 (three) Medica l times Branch daily as needed for Cough. benzonatate 2021-09- No [id number] 100mg Take 1 [facility] (TESSALON 0-19 12-09 capsule by itkyle of PERLFATEMEH) 100 00:00: 00:00 mouth 3 [place] mg capsule 00 :00 (three) Medica l times Branch daily as needed for Cough. benzonatate 2021-09- No [id number] 100mg Take 1 [facility] (TESSALON 0-19 12-09 capsule by ity of PERLFATEMEH) 100 00:00: 00:00 mouth 3 [place] mg capsule 00 :00 (three) Medica l times Branch daily as needed for Cough. DEXTROAMPHE 2021-09 Yes [id number] TAKE ONE Univers TAMINE-AMPH 0-11 (1) ity of ETAMINE 30 00:00: TABLET(S) [place] mg tablet 00 BY MOUTH Medica l EVERY Branch MORNING AND AT NOON. DEXTROAMPHE 2021- Yes [id number] TAKE ONE Univers TAMINE-AMPH 0-11 (1) ity of ETAMINE 30 00:00: TABLET(S) [place] mg tablet 00 BY MOUTH Medica l EVERY Branch MORNING AND AT NOON. DEXTROAMPHE 2021- Yes [id number] TAKE ONE Univers TAMINE-AMPH 0-11 (1) ity of ETAMINE 30 00:00: TABLET(S) [place] mg tablet 00 BY MOUTH Medica l EVERY Branch MORNING AND AT NOON. DEXTROAMPHE 2021- Yes [id number] TAKE ONE Univers TAMINE-AMPH 0-11 (1) ity of ETAMINE 30 00:00: TABLET(S) [place] mg tablet 00 BY MOUTH Medica l EVERY Branch MORNING AND AT NOON. DEXTROAMPHE 2021-09- No [id number] TAKE ONE [facility] TAMINE-AMPH 0-11 -09 (1) ity of ETAMINE 30 00:00: 00:00 TABLET(S) [place] mg tablet 00 :00 BY MOUTH Medica l EVERY Branch MORNING AND AT NOON. dextroamphe 2021-0 Yes [id number] 30mg Take 1 [facility] tamine-amph 9-15 tablet by ity of etamine 00:00: mouth [place] (ADDERALL) 00 every Medical 30 mg morning Branch tablet and at 1200 (noon). dextroamphe 2021-0 Yes [id number] 30mg Take 1 [facility] tamine-amph 9-15 tablet by ity of etamine 00:00: mouth [place] (ADDERALL) 00 every Medical 30 mg morning Branch tablet and at 1200 (noon). dextroamphe 2021-0 Yes [id number] 30mg Take 1 [facility] tamine-amph 9-15 tablet by ity of etamine 00:00: mouth [place] (ADDERALL) 00 every Medical 30 mg morning Branch tablet and at 1200 (noon). dextroamphe 2-0 2021- No [id number] 30mg Take 1 [facility] tamine-amph 9-15 10-11 tablet by it y of etamine 00:00: 00:00 mouth [place] (ADDERALL) 00 :00 every Medical 30 mg morning Branch tablet and at 1200 (noon). dextroamphe 2021- No [id number] 30mg Take 1 [facility] tamine-amph 05-0615 tablet by it y of etamine 00:00: 00:00 mouth in [place] (ADDERALL) 00 :00 the Medical 30 mg morning. Branch tablet Vital Signs Vital Name Observation Time Observation Value Comments Source Systolic blood 2023-04-28 21:10:00 101 mm[Hg] [facility] [place] Diastolic blood 2023-04-28 21:10:00 71 mm[Hg] [facility]ive rs[facility] [place] Heart rate 2023-04-28 21:10:00 86 /min [facility] Respiratory rate 2023-04-28 21:10:00 18 /[facility] height 2023-04-28 21:10:00 152.4 cm [facility] Body weight 2023-04-28 21:10:00 63.413 kg [facility] ty [facility] BMI 2023-04-28 21:10:00 27.30 kg/m2 [facility] Oxygen saturation in 2023-04-28 21:10:00 99 /min [facility] Arterial blood by [facility] Pulse oximetry Branch Systolic blood 2023-03-26 17:45:00 118 mm[Hg] [facility]iver [facility] of [facility] [place] Diastolic blood 2023-03-26 17:45:00 70 mm[Hg] Unive rsity of [facility] [place] Heart rate 2023-03-26 17:45:00 83 /min [facility] Body temperature 2023-03-26 17:45:00 36.89 [facility] Respiratory rate 2023-03-26 17:45:00 17 /min [facility] height 2023-03-26 17:45:00 152.4 cm Universi ty [facility] Body weight 2023-03-26 17:45:00 61.326 kg Universi ty [facility] BMI 2023-03-26 17:45:00 26.40 kg/m2 [facility] Oxygen saturation in 2023-03-26 17:45:00 98 /min University of Arterial blood by [employer] gwendolyn Pulse oximetry Branch Systolic blood 2023-01-03 20:45:00 118 mm[Hg] Univer sity of pressure [facility] Diastolic blood 2023-01-03 20:45:00 76 mm[Hg] Unive rsity of pressure [facility] Heart rate 2023-01-03 20:45:00 81 /min [facility] Body temperature 2023-01-03 20:45:00 36.61 Sally Univ ersity [facility] Respiratory rate 2023-01-03 20:45:00 18 /min Univ ers[facility] Body height 2023-01-03 20:45:00 152.4 cm [facility] Body weight 2023-01-03 20:45:00 60.873 kg [facility] BMI 2023-01-03 20:45:00 26.21 kg/m2 [facility] Oxygen saturation in 2023-01-03 20:45:00 99 /min University of Arterial blood by [place] [employer] [place] gwendolyn P[facility] Systolic blood 2022-11-18 20:05:00 125 mm[Hg] Univer sity of pressure [facility] Diastolic blood 2022-11-18 20:05:00 75 mm[Hg] Unive rsity of pressure [facility] Heart rate 2022-11-18 20:05:00 74 /min [facility] Body temperature 2022-11-18 20:05:00 36.33 Sally Univ [facility] Body height 2022-11-18 20:05:00 152.4 cm [facility] Body weight 2022-11-18 20:05:00 60.328 kg [facility] BMI 2022-11-18 20:05:00 25.97 kg/m2 [facility] Oxygen saturation in 2022-11-18 20:05:00 100 /min University of Arterial blood by [place] [employer] gwendolyn [facility] Systolic blood 2022-09-28 19:02:00 116 mm[Hg] Univer sity of pressure [facility] Diastolic blood 2022-09-28 19:02:00 74 mm[Hg] Unive rsity of [facility] Heart rate 2022-09-28 19:02:00 78 /min [facility] Body temperature 2022-09-28 19:02:00 37.17 Sally [facility] Body height 2022-09-28 19:02:00 152.4 cm [facility] Body weight 2022-09-28 19:02:00 58.06 kg [facility] BMI 2022-09-28 19:02:00 25.00 kg/m2 [facility] Oxygen saturation in 2022-09-28 19:02:00 99 /min University [facility] Arterial blood by [facility] gwendolyn Pulse oximetry Branch Systolic blood 2022-08-27 19:51:00 133 mm[Hg] Univer sity of pressure [facility] Diastolic blood 2022-08-27 19:51:00 82 mm[Hg] Unive rsity of pressure [facility] Heart rate 2022-08-27 19:51:00 72 /min [facility] Body height 2022-08-27 19:51:00 152.4 cm [facility] Body weight 2022-08-27 19:51:00 57.607 kg [facility] BMI 2022-08-27 19:51:00 24.80 kg/m2 [facility] Oxygen saturation in 2022-08-27 19:51:00 99 /min University [facility] Arterial blood by [facility] gwendolyn Pulse oximetry Branch Systolic blood 2022-07-07 17:56:00 120 mm[Hg] Univer sity of pressure [facility] Diastolic blood 2022-07-07 17:56:00 76 mm[Hg] Unive rsity of pressure [facility] Heart rate 2022-07-07 17:56:00 85 /min [facility] Body temperature 2022-07-07 17:56:00 36.5 Sally [facility] Body height 2022-07-07 17:56:00 152.4 cm [facility] Body weight 2022-07-07 17:56:00 59.966 kg [facility] BMI 2022-07-07 17:56:00 25.82 kg/m2 Universi ty [facility] Oxygen saturation in 2022-07-07 17:56:00 100 /min University of Arterial blood by [facility] Pulse oximetry Branch Systolic blood 2022-06-03 20:45:00 131 mm[Hg] Univer sity of pressure [facility] Diastolic blood 2022-06-03 20:45:00 82 mm[Hg] Unive rsity of pressure [facility] Heart rate 2022-06-03 20:45:00 84 /min Universi ty [facility] Body temperature 2022-06-03 20:45:00 37.39 Sally Univ ersity [facility] Body height 2022-06-03 20:45:00 152.4 cm Universi ty [facility] Body weight 2022-06-03 20:45:00 60.782 kg [facility] BMI 2022-06-03 20:45:00 26.17 kg[facility] 2022-06-03 20:45:00 99 /min [facility] Arterial blood by [facility] Pulse oximetry Branch Procedures Procedure Date / Time Performed Performing Clinician Sour e REFERRAL- 2023-04-29 05:01:00 Doctor Unassigned, No [facility] sity [facility] REQUEST/RESPONSE Name [facility] PAIN MANAGEMENT 2022-06-03 05:01:00 Doctor Unassigned, No [facility] [place] AGREEMENT & INFORMED Name Medical [facility] CONSENT Encounters Start End Encounter Admission Attending Care Care Encounter Source Date/Time Date/Time Type Type Clinicians Facility Department ID 2023-04-29 2023-04-29 Orders Doctor SANTORO 1.2.840.114 [id number] Univers 00:00:00 00:00:00 Only Unassigned, KELLY 350.1.13.10 ity of [place] [facility] 4.2.7.2.686 [place]avan as [phone] [place] [address] Branch 2023-04-28 2023-04-28 Outpatient R JOAN DUKE [facility] [id number] Univers 16:00:00 16:28:29 JOAN DUKE [facility] 2023-04-28 2023-04-[address] [facility] 1.2.840.114 [id number] Univers 16:00:00 16:28:29 Visit [facility] 350.1.13.10 ity of [place] 4.2.7.2.686 Donavan as ARABELLA?BLEA [phone] [facility] [address] MEDICAL OFFICE [facility] 2023-03-30 2023-03-30 [facility]ill [facility] 1.2.840.114 [id number] Univers 00:00:00 00:00:00 [facility] 350.1.13.10 ity of [place] 4.2.7.2.686 Donavan as ARABELLA?BLEA [id number] [address] MEDICAL OFFICE BUILDING 2023-03-30 2023-03-30 Patient [facility] 1.2.840.114 [id number] Univers 00:00:00 00:00:00 Secure Msg [facility] 350.1.13.10 [facility] [place] 4.2.7.2.686 [place] as ARABELLA?BLEA [id number] [address] MEDICAL OFFICE [facility] 2023-03-26 2023-03-26 Outpatient R IRMA [facility] [id number] Univers 12:40:00 13:01:19 REENU ity of [facility] 2023-03-26 2023-03-26 Urgent Sunny Lomax [facility] 1.2.840.11 [id number] Univers 12:40:00 13:01:19 Care Unknown, [facility] 350.1.13.10 [facility] [place] 4.2.7.2.686 Donavan as ARABELLA?BLEA [phone] [facility] [address] MEDICAL OFFICE [facility] 2023-03-01 2023-03-01 Refill [facility] 1.2.840.114 [id number] Univers 00:00:00 00:00:00 [facility] 350.1.13.10 ity of [place] 4.2.7.2.686 Donavan as ARABELLA?BLEA [id number] [address] MEDICAL OFFICE [facility] 2023-02-28 2023-02-28 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, 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 - [facility] 1.2.840.1 [id number] Univers 11:30:00 11:45:00 Visit Leilani [facility] 350.1.13.10 ity of [place] 4.2.7.2.686 Donavan as ARABELLA?BLEA [phone] [facility] [address] MEDICAL OFFICE [facility] 2023-02-28 2023-02-28 Out[facility] [id number] Univers 11:30:00 11:30:00 DEIONRAOUL DavisINE [facility] 2023-02-25 2023-02-25 Outpatient R LIELANI [facility] [id number] Univers 11:40:00 11:40:00 DEIONRAOUL DavisINE [facility] 2023-02-18 2023-02-18 Outpatient R LEILANI [facility] [id number] Univers 14:20:00 14:20:00 DEIONKyle [facility] 2023-02-03 2023-02-03 Refill [facility] 1.2.840.114 [id number] Univers 00:00:00 00:00:00 Joan HEALTH 350.1.13.10 ity of [place] 4.2.7.2.686 Donavan as ARABELLA?BLEA [phone] [address] OFFICE [facility] 2023-01-12 2023-01-12 Patient [facility] 1.2.840.114 [id number] Univers 00:00:00 00:00:00 Secure Msg Joan HEALTH 350.1.13.10 ity of [place] 4.2.7.2.686 Donavan as ARABELLA?BLEA [phone] [facility] [address] MEDICAL OFFICE [facility] 2023-01-07 2023-01-07 Outpatient R [facility] [id number] Univers 14:00:00 14:00:00 [facility]23-[facility] 2023-01-03 [facility] [id number] Univers 16:00:00 16:46:42 LEILANIRAOULJOAN [facility] 2023-01-03 2023-01-03 Office [facility] 1.2.840.114 [id number] Univers 16:00:00 16:46:42 Visit [facility] 350.1.13.10 ity of [place] 4.2.7.2.686 Donavan as ARABELLA?BLEA [phone] [address] OFFICE [facility] 2022-12-30 2022-12-30 Outpatient R DEIONKyle JOAN [facility] [id number] Univers 14:40:00 14:40:00 LEILANI [facility] 2022-12-14 2022-12-14 Refill [facility] 1.2.840.114 [id number] Univers 00:00:00 00:00:00 [facility] 350.1.13.10 ity of [place] 4.2.7.2.686 Donavan as ARABELLA?BLEA [id number] [address] OFFICE [facility] 2022-11-25 2022-11-25 Refill [facility] 1.2.840.114 [id number] Univers 00:00:00 00:00:00 [facility] 350.1.13.10 ity of [place] 4.2.7.2.686 Donavan as ARABELLA?BLEA [id number] [address] OFFICE [facility] 2022-11-18 2022-11-18 Office [facility] 1.2.840.114 [id number] Univers 14:20:00 14:40:00 Visit [facility] 350.1.13.10 ity of [place] 4.2.7.2.686 Donavan as ARABELLA?BLEA [id number] [address] MEDICAL OFFICE [facility] 2022-11-18 2022-11-18 [facility] [id number] Univers 14:20:00 14:20:00 [facility] 2022-11-18 2022-11-18 Refill [facility] 1.2.840.114 [id number] Univers 00:00:00 00:00:00 [facility] 350.1.13.10 ity of [place] 4.2.7.2.686 Donavan as ARABELLA?BLEA [id number] [address] MEDICAL OFFICE [facility] 2022-11-18 2022-11-18 Letter [facility] 1.2.840.114 [id number] Univers 00:00:00 00:00:00 (Out) Joan HEALTH 350.1.13.10 ity of [place] 4.2.7.2.686 Donavan as ARABELLA?BLEA [id number] [address] MEDICAL OFFICE BUILDING 2022-10-11 2022-10-11 Telephone [facility] 1.2.352.889 [id number] Univers 00:00:00 00:00:00 Joan HEALTH 350.1.13.10 ity of [place] 4.2.7.2.686 Donavan as ARABELLA?BLEA [id number] [address] OFFICE [facility] 2022-10-10 2022-10-10 Refill [facility] 1.2.840.114 [id number] Univers 00:00:00 00:00:00 [facility] 350.1.13.10 ity of [place] 4.2.7.2.686 Donavan as ARABELLA?BLEA [id number] [address] OFFICE [facility] 2022-09-29 2022-09-29 [facility] 1.2.229.248 [id number] Univers 00:00:00 00:00:00 [facility] 350.1.13.10 ity of [place] 4.2.7.2.686 Donavan as ARABELLA?BLEA [id number] [address] OFFICE [facility] 2022-09-28 2022-09-28 [facility] [id number] Univers 13:00:00 13:27:03 JOAN ity [facility] 2022-09-28 2022-09-28 Office [facility] 1.2.840.114 [id number] Univers 13:00:00 13:27:03 Visit [facility] 350.1.13.10 ity of [place] 4.2.7.2.686 Donavan as ARABELLA?BLEA [id number] [address] OFFICE [facility] 2022-09-23 2022-09-23 Refill [facility] 1.2.840.114 [id number] Univers 00:00:00 00:00:00 Joan HEALTH 350.1.13.10 ity of [place] 4.2.7.2.686 Donavan as ARABELLA?BLEA [phone] [address] OFFICE [facility] 2022-09-16 2022-09-16 Telephone [facility] [id number] Univers 00:00:00 00:00:00 [facility] 350.1.13.10 ity of [place] 4.2.7.2.686 Donavan as ARABELLA?BLEA [id number] [address] 2022-08-31 2022-08-31 Telephone [facility] [id number] Univers 00:00:00 00:00:00 [facility] 350.1.13.10 ity of [place] 4.2.7.2.686 [place]avan as ARABELLA?BLEA [phone] [address] 2022-08-27 2022-08-27 Outpatient R [facility] [id number] Univers 13:40:00 14:05:20 JOAN ity [facility] 2022-08-27 2022-08-27 Office [facility] 1.2.840.114 [id number] Univers 13:40:00 14:05:20 Visit [facility] 350.1.13.10 ity of [place] 4.2.7.2.686 Donavan as ARABELLA?BLEA [id number] [address] OFFICE [facility] 2022-08-27 2022-08-27 Telephone [facility] 1.2.035.394 [id number] Univers 00:00:00 00:00:00 [facility] 350.1.13.10 ity of [place] 4.2.7.2.686 Donavan as ARABELLA?BLEA [id number] [address] 2022-07-28 2022-07-28 [facility] 1.2.840.114 [id number] Univers 00:00:00 00:00:00 Joan HEALTH 350.1.13.10 ity of [place] 4.2.7.2.686 Donavan as ARABELLA?BLEA [id number] [address] OFFICE [facility] 2022-07-07 2022-07-07 Outpatient R [facility] [id number] Univers 13:00:00 13:29:34 ZEINAB ity of [facility] 2022-07-07 2022-07-07 [facility] 1.2.840.114 [id number] Univers 13:00:00 13:29:34 Visit Zeinab A HEALTH 350.1.13.10 i ty of [place] 4.2.7.2.686 [place] as ARABELLA?BLEA [id number] [address] OFFICE [facility] 2022-07-07 2022-07-07 Letter [facility] 1.2.840.114 [id number] Univers 00:00:00 00:00:00 (Out) Zeinab A HEALTH 350.1.13.10 i ty of [place] 4.2.7.2.686 [place]avan as ARABELLA?BLEA [id number] [address] OFFICE [facility] 2022-06-28 2022-06-28 [facility] 1.2.840.114 [id number] Univers 00:00:00 00:00:00 Joan HEALTH 350.1.13.10 ity of [place] 4.2.7.2.686 Donavan as ARABELLA?BLEA [id number] [address] OFFICE [facility] 2022-06-28 2022-06-28 [facility] 1.2.840.114 [id number] Univers 00:00:00 00:00:00 Joan HEALTH 350.1.13.10 ity of [place] 4.2.7.2.686 Donavan as ARABELLA?BLEA [id number] [address] OFFICE [facility] 2022-06-04 2022-06-04 Outpatient R LEILANI [facility] [id number] Univers 15:40:00 15:40:00 [facility] 2022-06-04 2022-06-04 Outpatient R LEILANI, [facility] [id number] Univers 15:40:00 15:40:00 [facility] 2022-06-03 2022-06-03 [facility] [id number] Univers 15:40:00 16:11:09 [facility] 2022-06-03 2022-06-03 Office [facility] 1.2.840.114 [id number] Univers 15:40:00 16:11:09 Visit [facility] 350.1.13.10 ity of [place] 4.2.7.2.686 Donavan as ARABELLA?BLEA [id number] [address] MEDICAL OFFICE [facility] 2022-06-03 2022-06-03 Outpatient [facility] [id number] Univers 15:40:00 15:40:00 [facility] 2022-06-03 2022-06-03 Outpatient [facility] [id number] Univers 14:20:00 14:20:00 [facility] 2022-06-03 2022-06-03 Orders Doctor YVAN 1.2.840.114 [id number] Univers 00:00:00 00:00:00 Only Unassigned, KELLY 350.1.13.10 ity of [place] [facility] 4.2.7.2.686 Don[place] as [id number] [address] 2022-06-03 2022-06-03 Letter [facility] 1.2.840.114 [id number] Univers 00:00:00 00:00:00 (Out) [facility] 350.1.13.10 ity of [place] 4.2.7.2.686 Donavan as ARABELLA?BLEA [id number] [address] MEDICAL OFFICE BUILDING 2022-05-06 2022-05-06 Outpatient [facility] [id number] Univers 15:40:00 16:32:35 JOAN [facility] 2022-05-06 2022-05-06 Office [facility] 1.2.840.114 [id number] Univers 15:40:00 16:32:35 Visit [facility] 350.1.13.10 ity of [place] 4.2.7.2.686 Donavan as ARABELLA?BLEA [id number] Mn ranjeettomasa [facility] [address] MEDICAL OFFICE [facility] 2022-05-06 2022-05-06 Outpatient [facility] [id number] Univers 15:40:00 16:32:35 [facility] 2022-05-05 2022-05-05 Urgent [facility] 1.2.840.114 [id number] Univers 16:00:00 16:20:00 Care [facility] 350.1.13.10 it y of [place] 4.2.7.2.686 Donavan as ARABELLA?BLEA [id number] [facility] [address] [facility] OFFICE [facility] 2022-05-05 2022-05-05 Outpatient R ROSA [facility] [id number] Univers 16:00:00 16:00:00 [facility] 2022-05-05 2022-05-05 Orders Doctor YVAN 1.2.840.114 [id number] Univers 00:00:00 00:00:00 Only Unassigned, KELLY 350.1.13.10 ity of [place] [facility] 4.2.7.2.686 [place] as [id number] [address] Results This patient has no known results.
--- NOTE | 2023-05-08 13:32 | EDPHYS ---
Physician Documentation [facility] Name: Jyoti Amado Age: 38 yrs Sex: Female : 1985 Arrival Date: 05/08/2023 Time: 12:42 Bed 11 Private MD: ED Physician Yvette Smith HPI: 05/08 13:36 This 38 yrs old Female presents to ER via Ambulatory with complaints of Elbow Injury - snw left. 13:36 Context: nontraumatic left elbow pain x 2 months, tried motrin and support strap. 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 - Social history:: Smoking status: Patient reports the use of cigarette tobacco products, smokes one-half pack cigarettes per day. ROS: 13:36 Constitutional: Negative for fever, chills, and weight loss, Eyes: Negative for injury, snw pain, redness, and discharge, ENT: Negative for injury, pain, and discharge, Neck: Negative for injury, pain, and swelling, Cardiovascular: Negative for chest pain, palpitations, and edema, Respiratory: Negative for shortness of breath, cough, wheezing, and pleuritic chest pain, Abdomen/GI: Negative for abdominal pain, nausea, vomiting, diarrhea, and constipation, Back: Negative for injury and pain, : Negative for injury, bleeding, discharge, and swelling, Skin: Negative for injury, rash, and discoloration, Neuro: Negative for headache, weakness, numbness, tingling, and seizure, Psych: Negative for depression, anxiety, suicide ideation, homicidal ideation, and hallucinations. 13:36 MS/extremity: Positive for decreased range of motion, pain, tenderness, of the left elbow. Exam: 13:33 Constitutional: This is a well developed, well nourished patient who is awake, alert, snw and in no acute distress. Head/Face: Normocephalic, atraumatic. Eyes: Pupils equal round and reactive to light, extra-ocular motions intact. Lids and lashes normal. Conjunctiva and sclera are non-icteric and not injected. Cornea within normal limits. Periorbital areas with no swelling, redness, or edema. ENT: Nares patent. No nasal discharge, no septal abnormalities noted. Tympanic membranes are normal and external auditory canals are clear. Oropharynx with no redness, swelling, or masses, exudates, or evidence of obstruction, uvula midline. Mucous membranes moist. Neck: Trachea midline, no thyromegaly or masses palpated, and no cervical lymphadenopathy. Supple, full range of motion without nuchal rigidity, or vertebral point tenderness. No Meningismus. Chest/axilla: Normal chest wall appearance and motion. Nontender with no deformity. No lesions are appreciated. Cardiovascular: Regular rate and rhythm with a normal S1 and S2. No gallops, murmurs, or rubs. Normal PMI, no JVD. No pulse deficits. Respiratory: Lungs have equal breath sounds bilaterally, clear to auscultation and percussion. No rales, rhonchi or wheezes noted. No increased work of breathing, no retractions or nasal flaring. Abdomen/GI: Soft, non-tender, with normal bowel sounds. No distension or tympany. No guarding or rebound. No evidence of tenderness throughout. Back: No spinal tenderness. No costovertebral tenderness. Full range of motion. Skin: Warm, dry with normal turgor. Normal color with no rashes, no lesions, and no evidence of cellulitis. Neuro: Awake and alert, GCS 15, oriented to person, place, time, and situation. Cranial nerves II-XII grossly intact. Motor strength 5/5 in all extremities. Sensory grossly intact. Cerebellar exam normal. Normal gait. Psych: Awake, alert, with orientation to person, place and time. Behavior, mood, and affect are within normal limits. 13:33 Musculoskeletal/extremity: Extremities: grossly normal except: noted in the left lateral antecubital area and dorsal aspect of left forearm: tenderness, ROM: limited active range of motion due to pain, limited passive range of motion due to pain, in the left elbow, Circulation is intact in all extremities. Sensation intact. Vital Signs: 13:09 BP 126 / 94; Pulse 83; Resp 18; Temp 98.6(O); Pulse Ox 100% on R/A; Weight 62.6 kg; nj1 Height 5 ft. 0 in. ; Pain 10/10; 13:09 Body Mass Index 26.95 (62.60 kg, 152.4 cm) nj1 13:09 Pain Scale: Adult nj1 MDM: 13:16 Patient medically screened. snw 13:35 Differential diagnosis: dislocation, closed fracture, tendonitis. Data reviewed: vital snw signs, nurses notes. I considered the following discharge prescriptions or medication management in the emergency department Medications were administered in the Emergency Department. See MAR. Counseling: I had a detailed discussion with the patient and/or guardian regarding the historical points, exam findings, and any diagnostic results supporting the discharge/admit diagnosis, the need for outpatient follow up, for definitive care, a orthopedic surgeon, to return to the emergency department if symptoms worsen or persist or if there are any questions or concerns that arise at home. Special discussion: I have referred the patient to see his PCP for further evaluation of high blood pressure. Based on the history and exam findings, there is no indication for further emergent testing or inpatient evaluation. I discussed with the patient/guardian the need to see the orthopedic surgeon for further evaluation of the symptoms. I discussed with the patient/guardian the need to see the primary care provider for further evaluation of the symptoms. Administered Medications: No medications were administered Disposition Summary: 05/08/23 13:31 Discharge Ordered Location: Home snw Condition: Stable snw Diagnosis - Lateral epicondylitis, left elbow snw Followup: snw - With: Emergency Department - When: As needed - Reason: Worsening of condition Followup: snw - With: Private Physician - When: 1 - 2 days - Reason: Recheck today's complaints, Continuance of care, Re-evaluation by your physician Discharge Instructions: - Discharge Summary Sheet snw - Tennis Elbow snw - Tendinitis snw Forms: - Work release form snw - Medication Reconciliation Form snw - Thank You Letter snw - Antibiotic Education snw - Prescription Opioid Use snw - Patient Portal Instructions snw - Leadership Thank You Letter snw Prescriptions: - Prednisone 20 mg Oral Tablet - take 2 tablets by ORAL route once daily for 5 days; 10 tablet; Refills: 0, snw Product Selection Permitted - Pepcid 20 mg Oral Tablet - take 1 tablet by ORAL route once daily; 20 tablet; Refills: 0, Product snw Selection Permitted Signatures: Sharon Cano FNP-C [employer]-[place] Александр, Mae, RN RN nj1 Corrections: (The following items were deleted from the chart) 13:12 13:11 PMHx: None; nj1 nj1
--- NOTE | 2023-05-08 13:32 | ER ---
Nurse's Notes [facility] Name: Jyoti Amado Age: 38 yrs Sex: Female : 1985 Arrival Date: 05/08/2023 Time: 12:42 Bed 11 Private MD: Diagnosis: Lateral epicondylitis, left elbow Presentation: 05/08 13:09 Chief complaint: Patient states: Left elbow pain for about 2 months, unknown injury. nj1 Seen by PCP twice, tried ibuprofen as instructed by PCP but pain is getting worse. Coronavirus screen: Vaccine status: Patient reports being unvaccinated. Ebola Screen: Patient denies travel to an Ebola-affected area in the 21 days before illness onset. Initial Sepsis Screen: Does the patient meet any 2 criteria? No. Patient's initial sepsis screen is negative. Does the patient have a suspected source of infection? No. Patient's initial sepsis screen is negative. Risk Assessment: Do you want to hurt yourself or someone else? Patient reports no desire to harm self or others. Onset of symptoms was February 2023. 13:09 Method Of Arrival: Ambulatory [facility] 13:09 Acuity: GABO 4 nj Triage Assessment: 13:12 General: Appears in no apparent distress. comfortable, Behavior is calm, cooperative, nj1 appropriate for age. Pain: Complains of pain in left elbow Pain currently is 10 out of 10 on a pain scale. Neuro: Level of Consciousness is awake, alert, obeys commands, Oriented to person, place, time, situation. Cardiovascular: Patient's skin is warm and dry. Respiratory: Airway is patent Respiratory effort is even, unlabored. Musculoskeletal: Pt able to move arm, bending elbow, with no significant distress/discomfort noted during triage/assessment. Pt using left arm to use cell phone. Reports pain in left elbow. Injury Description: none. 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 - Social history:: Smoking status: Patient reports the use of cigarette tobacco products, smokes one-half pack cigarettes per day. Screenin:14 [facility] ED Fall Risk Assessment (Adult) Score/Fall Risk Level 0 - 2 = Low Risk [facility] Oriented to surroundings, Maintained a safe environment, Hourly rounding (assess needs \T\ fall precautionary measures) done. Abuse screen: Denies threats or abuse. Denies injuries from another. Nutritional screening: No deficits noted. Tuberculosis screening: No symptoms or risk factors identified. Vital Signs: 13:09 BP 126 / 94; Pulse 83; Resp 18; Temp 98.6(O); Pulse Ox 100% on R/A; Weight 62.6 kg; nj1 Height 5 ft. 0 in. ; Pain 10/10; 13:09 Body Mass Index 26.95 (62.60 kg, 152.4 cm) [facility] 13:09 Pain Scale: Adult [facility] ED Course: 12:45 Patient arrived in ED. im 12:47 Sharon Cano FNP-C is PHCP. snw 12:47 Yvette Smith MD is Attending Physician. snw 13:11 Triage completed. [facility] 13:12 Arm band placed on right wrist. nd1 13:14 Patient has correct armband on for positive identification. Bed in low position. Call [facility] light in reach. Provided Education on: fall precautions, call light. Administered Medications: No medications were administered Outcome: 13:31 Discharge ordered by MD. snw 14:21 Patient left the ED. hb Signatures: Sharon Cano FNP-C FNP-Csnw Ashia Hunter, RN RN Mae Fountain RN RN [facility] Fe Maya im Corrections: (The following items were deleted from the chart) 13:12 13:11 PMHx: None; [place] [id number]
[2023-05-08] MEDS ORDERED: predniSONE 20 MG TAB ONE (14:25)
[2023-05-08] MEDS ORDERED: FAMOTIDINE 20 MG TAB ONE (14:25)
[2023-05-08 14:27] VITALS: BP 126/94; TEMP 98.6; O2SAT 100
== END 2023-05-08 14:21 | disposition home or self-care (01) ==
LOC: ER 12:42
DX: M77.12 Lateral epicondylitis, left elbow (principal); F17.210 Nicotine dependence, cigarettes, uncomplicated
CPT/HCPCS: 99281; J7512

== ENCOUNTER 2023-06-26 19:03 | Emergency (ER) | payer OTHER, SELFPAY ==
--- OUTSIDE RECORDS SUMMARY | 2023-06-26 19:09 | XMS REPORT | Continuity of Care Document ---
:1985 Author Organization [facility] t Address [address] [place] [address] [place] [id number] Care Team Providers Name Role Phone Joan Duke MD Primary Care Physician Joan Duke MD Attending Clinician JOAN DUKE Attending Clinician Unavailable Doctor Unassigned, [place] Attending Clinician Unavailable SUNNY LOMAX Attending Clinician [...] Active [facility] [place] [facility] Social History Social Habit Start Date Stop Date Quantity Comments Source History SDPR University o f Alcohol Frequency [place] [facility] History SDPR University o f Alcohol Std Drinks [facility] Branch History [facility] University o f Alcohol Binge [place] [facility] Gender identity Universit y of [facility] Sexual orientation Univer sity of [facility] History of tobacco Cigarette Smoker University of use [facility] Alcohol intake 2023-04-28 2023-04-28 Current drinker Unive rsity of 00:00:00 00:00:00 of alcohol [facility] (finding) Branch History of Social 2023-04-28 2023-04-28 Univers ity of function 00:00:00 00:00:00 [facility] Exposure to 2023-03-16 2023-03-26 Not sure University of SARS-CoV-2 (event) 00:00:00 10:20:00 [facility] Cigarettes smoked 2022-05-05 2022-05-05 Univers ity of current (pack per 00:00:00 00:00:00 [facility]) - Reported Branch Cigarette 2022-05-05 2022-05-05 University of pack-years 00:00:00 00:00:00 [facility] Tobacco use and 2022-05-05 2022-05-05 Smokeless Universit y of exposure 00:00:00 00:00:00 tobacco non-user [facility] dical [place] Alcohol Comment 2017-12-26 2017-12-26 socially Universit y of 00:00:00 00:00:00 [facility] Sex Ass[birth year] Universit y of 00:00:00 00:00:00 [facility] Smoking Status Start Date Stop Date Source Smokes tobacco daily 2022-05-05 00:00:00 Univers ity of [facility] Medications Ordered Filled Start Stop Current Ordering Indication Dosage Frequency Signature Comments Components Source Medication Medication Date Date Medication? Clinician (SIG) Name Name dextroamphe Yes [id number] 30mg Take 1 Univers tamine-amph 9-14 tablet by ity of etamine 30 00:00: mouth [place] mg tablet 00 every Medical morning Branch and at 1200 (noon). triamcinolo 2022- No [id number] 20mg Univers ne 8 08 9100 ity of acetonide 21:00: 20:03 [place] (KENALOG) 00 :00 Medical injection Branch 20 mg triamcinolo 2022-0 2022- No [id number] 20mg 20 mg, Univers ne 05-13- 9100 Intra-ryan ity of acetonide 21:00: 20:03 [place], [place] (KENALOG) 00 :00 ONCE, 1 Medical injection dose, On Branch 20 mg Tue05/13/23 at 1600, Routine triamcinolo 2022-0 2022- No [id number] 20mg Univers ne 05-13 9100 ity of acetonide 21:00: 20:03 [place] (KENALOG) 00 :00 Medical injection Branch 20 mg triamcinolo 2022-2022- No [id number] 20mg 20 mg, Univers ne 05-13 9100 Intra-ryan ity of acetonide 21:00: 20:03 [place], [place] (KENALOG) 00 :00 ONCE, 1 Medical injection dose, On Branch 20 mg Tue05/13/23 at 1600, Routine cyclobenzap Yes [id number] 10mg Take 1 Univers rine 10 mg 8-25 9100 tablet by ity of tablet 00:00: mouth 3 (three) Medical times Branch daily as needed for Muscle Spasms (May make sleepy, do not use before driving). cyclobenzap Yes [id number] 10mg Take 1 Univers rine 10 mg 8-25 9100 tablet by ity of tablet 00:00: mouth 3 (three) Medical times Branch daily as needed for Muscle Spasms (May make sleepy, do not use before driving). cyclobenzap 0 Yes [id number] 10mg Take 1 Univers rine 10 mg 8-25 9100 tablet by ity of tablet 00:00: mouth 3 00 (three) Medical times Branch daily as needed for Muscle Spasms (May make sleepy, do not use before driving). cyclobenzap 2022-0 Yes [id number] 10mg Take 1 Univers rine 10 mg 8-25 9100 tablet by ity of tablet 00:00: mouth 3 00 (three) Medical times Branch daily as needed for Muscle Spasms (May make sleepy, do not use before driving). cyclobenzap 2022-0 Yes [id number] 10mg Take 1 Univers rine 10 mg 8-25 9100 tablet by ity of tablet 00:00: mouth 3 (three) Medical times Branch daily as needed for Muscle Spasms (May make sleepy, do not use before driving). cyclobenzap 2023-0 Yes [id number] 10mg Take 1 Univers rine 10 mg 8-25 9100 tablet by ity of tablet 00:00: mouth 3 (three) Medical times Branch daily as needed for Muscle Spasms (May make sleepy, do not use before driving). cyclobenzap 2023-0 Yes [id number] 10mg Take 1 Univers rine 10 mg 8-25 9100 tablet by ity of tablet 00:00: mouth 3 (three) Medical times Branch daily as needed for Muscle Spasms (May make sleepy, do not use before driving). dexmethylph 2023-0 Yes [id number] 5mg Take 1 Univers enidate 5 8-21 tablet by ity o f mg tablet 00:00: mouth every Medical morning Branch and at 1200 (noon). predniSONE 2023-0 Yes [id number] Take three Univers 10 mg 8-21 9100 tablets ity of tablet 00:00: daily for three Medical days, take Branch two tablets daily for three days, take one tablet daily for three days dexmethylph 2023-0 Yes [id number] 5mg Take 1 Univers enidate 5 8-21 tablet by ity o f mg tablet 00:00: mouth every Medical morning Branch and at 1200 (noon). predniSONE 2023-0 Yes [id number] Take three Univers 10 mg 8-21 9100 tablets ity of tablet 00:00: daily for three Medical days, take Branch two tablets daily for three days, take one tablet daily for three days dexmethylph 2023-0 Yes [id number] 5mg Take 1 Univers enidate 5 8-21 tablet by ity o f mg tablet 00:00: mouth every Medical morning Branch and at 1200 (noon). predniSONE 2023-0 Yes [id number] Take three Univers 10 mg 8-21 9100 tablets ity of tablet 00:00: daily for three Medical days, take Branch two tablets daily for three days, take one tablet daily for three days dexmethylph 2023-0 Yes [id number] 5mg Take 1 Univers enidate 5 8-21 tablet by ity o f mg tablet 00:00: mouth [place] 00 every Medical morning Branch and at 1200 (noon). predniSONE 3-0 Yes [id number] Take three Univers 10 mg 8-21 9100 tablets ity of tablet 00:00: daily for [place] three Medical days, take Branch two tablets daily for three days, take one tablet daily for three days dexmethylph 3-0 Yes [id number] 5mg Take 1 Univers enidate 5 8-21 tablet by ity o f mg tablet 00:00: mouth [place] 00 every Medical morning Branch and at 1200 (noon). predniSONE 3-0 Yes [id number] Take three Univers 10 mg 8-21 9100 tablets ity of tablet 00:00: daily for [place] three Medical days, take Branch two tablets daily for three days, take one tablet daily for three days dexmethylph 3-0 Yes [id number] 5mg Take 1 Univers enidate 5 8-21 tablet by ity o f mg tablet 00:00: mouth [place] 00 every Medical morning Branch and at 1200 (noon). predniSONE 3-0 Yes [id number] Take three Univers 10 mg 8-21 9100 tablets ity of tablet 00:00: daily for [place] three Medical days, take Branch two tablets daily for three days, take one tablet daily for three days predniSONE 2023-0 Yes [id number] Take three Univers 10 mg 8-21 9100 tablets ity of tablet 00:00: daily for [place] three Medical days, take Branch two tablets daily for three days, take one tablet daily for three days predniSONE 2023-0 Yes [id number] Take three Univers 10 mg 8-21 9100 tablets ity of tablet 00:00: daily for [place] three Medical days, take Branch two tablets daily for three days, take one tablet daily for three days dexmethylph 2023-0 2023- No [id number] 5mg Take 1 Univers enidate 5 8-21 09-14 tablet by ity of mg tablet 00:00: 00:00 mouth [place] 00 :00 every Medical morning Branch and at 1200 (noon). dexmethylph 3-0 Yes [id number] 2.5mg Take 1 Univers enidate 2.5 8-10 tablet by ity of mg tablet 00:00: mouth [place] 00 every Medical morning Branch and at 1200 (noon). ibuprofen 2023-0 Yes [id number] 600mg Take 1 U nivers 600 mg 8-10 tablet by ity of tablet 00:00: mouth [place] 00 every 6 Medical (six) Branch hours as needed for Pain (scale 4-6). dexmethylph 2023-0 Yes [id number] 2.5mg Take 1 Univers enidate 2.5 8-10 tablet by ity of mg tablet 00:00: mouth [place] 00 every Medical morning Branch and at 1200 (noon). ibuprofen 2023-0 Yes [id number] 600mg Take 1 U nivers 600 mg 8-10 tablet by ity of tablet 00:00: mouth [place] 00 every 6 Medical (six) Branch hours as needed for Pain (scale 4-6). dexmethylph 2023-0 Yes [id number] 2.5mg Take 1 Univers enidate 2.5 8-10 tablet by ity of mg tablet 00:00: mouth [place] 00 every Medical morning Branch and at 1200 (noon). ibuprofen 2023-0 Yes [id number] 600mg Take 1 U nivers 600 mg 8-10 tablet by ity of tablet 00:00: mouth [place] 00 every 6 Medical (six) Branch hours as needed for Pain (scale 4-6). ibuprofen 2023-0 Yes [id number] 600mg Take 1 U nivers 600 mg 8-10 tablet by ity of tablet 00:00: mouth [place] 00 every 6 Medical (six) Branch hours as needed for Pain (scale 4-6). ibuprofen 2023-0 Yes [id number] 600mg Take 1 U nivers 600 mg 8-10 tablet by ity of tablet 00:00: mouth [place] 00 every 6 Medical (six) Branch hours as needed for Pain (scale 4-6). ibuprofen 2023-0 Yes [id number] 600mg Take 1 U nivers 600 mg 8-10 tablet by ity of tablet 00:00: mouth [place] 00 every 6 Medical (six) Branch hours as needed for Pain (scale 4-6). ibuprofen 2023-0 Yes [id number] 600mg Take 1 U nivers 600 mg 8-10 tablet by ity of tablet 00:00: mouth [place] 00 every 6 Medical (six) Branch hours as needed for Pain (scale 4-6). ibuprofen 2023-0 Yes [id number] 600mg Take 1 U nivers 600 mg 8-10 tablet by ity of tablet 00:00: mouth [place] 00 every 6 Medical (six) Branch hours as needed for Pain (scale 4-6). ibuprofen 2023-0 Yes [id number] 600mg Take 1 U nivers 600 mg 8-10 tablet by ity of tablet 00:00: mouth [place] 00 every 6 Medical (six) Branch hours as needed for Pain (scale 4-6). ibuprofen 2023-0 Yes [id number] 600mg Take 1 U nivers 600 mg 8-10 tablet by ity of tablet 00:00: mouth [place] 00 every 6 Medical (six) Branch hours as needed for Pain (scale 4-6). ibuprofen 2023-0 Yes [id number] 600mg Take 1 U nivers 600 mg 8-10 tablet by ity of tablet 00:00: mouth [place] 00 every 6 Medical (six) Branch hours as needed for Pain (scale 4-6). ibuprofen 2023-0 Yes [id number] 600mg Take 1 U nivers 600 mg 8-10 tablet by ity of tablet 00:00: mouth [place] 00 every 6 Medical (six) Branch hours as needed for Pain (scale 4-6). dexmethylph 2023-0 2022- No [id number] 2.5mg Take 1 Univers enidate 2.5 8-10 08-21 tablet by it y of mg tablet 00:00: 00:00 mouth [place] 00 :00 every Medical morning Branch and at 1200 (noon). dextroamphe 2023-0 Yes [id number] 30mg Take 1 Univers tamine-amph 7-13 tablet by ity of etamine 30 00:00: mouth [place] mg tablet 00 every Medical morning Branch and at 1200 (noon). dextroamphe 2023-0 2023- No [id number] 30mg Take 1 Univers tamine-amph 7-13 08-10 tablet by it y of etamine 30 00:00: 00:00 mouth [place] mg tablet 00 :00 every Medical morning Branch and at 1200 (noon). dextroamphe 2023-0 2023- No [id number] 30mg Take 1 Univers tamine-amph 7-13 08-10 tablet by it y of etamine 30 00:00: 00:00 mouth [place] mg tablet 00 :00 every Medical morning Branch and at 1200 (noon). methylPREDN 2023-0 Yes [id number] follow Univers ISolone 7-08 package ity of (MEDROL, 00:00: directions [place] KETURAH,) 4 mg 00 Medical tablets Branch methylPREDN 2023-0 Yes [id number] follow Univers ISolone 7-08 package ity of (MEDROL, 00:00: directions [place] KETURAH,) 4 mg 00 Medical tablets Branch methylPREDN 2023-0 Yes [id number] follow Univers ISolone 7-08 package ity of (MEDROL, 00:00: directions [place] KETURAH,) 4 mg 00 Medical tablets Branch methylPREDN 2023-0 Yes [id number] follow Univers ISolone 7-08 package ity of (MEDROL, 00:00: directions [place] KETURAH,) 4 mg 00 Medical tablets Branch methylPREDN 2023-0 Yes [id number] follow Univers ISolone 7-08 package ity of (MEDROL, 00:00: directions [place] KETURAH,) 4 mg 00 Medical tablets Branch methylPREDN 2023-0 Yes [id number] follow Univers ISolone 7-08 package ity of (MEDROL, 00:00: directions [place] KETURAH,) 4 mg 00 Medical tablets Branch methylPREDN 2023-0 2023- No [id number] follow Univers ISolone 7-08 08-21 package ity of (MEDROL, 00:00: 00:00 directions [place] KETURAH,) 4 mg 00 :00 Medical tablets Branch cephALEXin 2023-0 2023- No [id number] 500mg Take 1 Univers 500 mg 03-26 capsule by ity of capsule 00:00: 04:59 mouth 4 [place] 00 :00 (four) Medical times Branch daily for 5 days. cephALEXin 2023-0 2023- No [id number] 500mg Take 1 Univers 500 mg 03-26- capsule by ity of capsule 00:00: 04:59 mouth 4 [place] 00 :00 (four) Medical times Branch daily for 5 days. cephALEXin 2023-0 2023- No [id number] 500mg Take 1 Univers 500 mg 03-26 capsule by ity of capsule 00:00: 04:59 mouth 4 [place] 00 :00 (four) Medical times Branch daily for 5 days. acetaminoph 2023-0 2022- No [id number] 1{tbl} Take 1 U nivers en-codeine 03-26 07-11 tablet by ity of (TYLENOL-CO 00:00: 04:59 [place] DE[place] #3) 00 :00 every 6 Medical 300-30 mg (six) Branch tablet hours as needed for Pain (scale 7-10) for up to 2 days. Indication s: acute pain dextroamphe 2023-0 Yes [id number] 30mg Take 1 Univers tamine-amph 6-13 tablet by ity of etamine 30 00:00: mouth [place] mg tablet 00 every Medical morning Branch and at 1200 (noon). dextroamphe 2023-0 Yes [id number] 30mg Take 1 Univers tamine-amph 6-13 tablet by ity of etamine 30 00:00: mouth [place] mg tablet 00 every Medical morning Branch and at 1200 (noon). dextroamphe 2023-0 Yes [id number] 30mg Take 1 Univers tamine-amph 6-13 tablet by ity of etamine 30 00:00: mouth [place] mg tablet 00 every Medical morning Branch and at 1200 (noon). dextroamphe 2023-0 2022- No [id number] 30mg Take 1 Univers tamine-amph 6-13 07-12 tablet by it y of etamine 30 00:00: 00:00 mouth [place] mg tablet 00 :00 every Medical morning Branch and at 1200 (noon). dextroamphe 2023-0 Yes [id number] 30mg Take 1 Univers tamine-amph 5-18 tablet by ity of etamine 30 00:00: mouth [place] mg tablet 00 every Medical morning Branch and at 1200 (noon). dextroamphe 2023-0 Yes [id number] 30mg Take 1 Univers tamine-amph 5-18 tablet by ity of etamine 30 00:00: mouth [place] mg tablet 00 every Medical morning Branch and at 1200 (noon). dextroamphe 2023-0 2022- No [id number] 30mg Take 1 Univers tamine-amph 5-18 06-13 tablet by it y of etamine 30 00:00: 00:00 mouth [place] mg tablet 00 :00 every Medical morning Branch and at 1200 (noon). methylpheni 2023-0 Yes [id number] 20mg Take 1 Univers date HCl 20 4-27 tablet by ity of mg tablet 00:00: mouth [place] 00 the Medical morning Branch and 1 tablet in the evening. methylpheni 3-0 Yes [id number] 20mg Take 1 Univers date HCl 20 4-27 tablet by ity of mg tablet 00:00: mouth [place] 00 the Medical morning Branch and 1 tablet in the evening. methylpheni 2023-0 2023- No [id number] 20mg Take 1 Univers date HCl 20 4-27 05-18 tablet by it y of mg tablet 00:00: 00:00 mouth in [place] as 00 :00 the Medical morning Branch and 1 tablet in the evening. methylpheni 3-0 Yes [id number] 20mg Take 1 Univers date HCl 20 4-17 tablet by ity of mg tablet 00:00: mouth [place] 00 the Medical morning Branch and 1 tablet in the evening. azelastine 2022-0 Yes [id number] 1{spray Use 1 Univers 137 mcg 4-17 } [place] in ity of (0.1 %) 00:00: each [place] nasal spray 00 nostril 2 Med ical (two) Branch times daily as needed. Use in each nostril as directed methylpheni 3-0 Yes [id number] 20mg Take 1 Univers date HCl 20 4-17 tablet by ity of mg tablet 00:00: mouth [place] 00 the Medical morning Branch and 1 tablet in the evening. azelastine 2022-0 Yes [id number] 1{spray Use 1 Univers 137 mcg 4-17 } [place] in ity of (0.1 %) 00:00: each [place] nasal spray 00 nostril 2 Med ical (two) Branch times daily as needed. Use in each nostril as directed azelastine 3-0 Yes [id number] 1{spray Use 1 Univers 137 mcg 4-17 } [place] in ity of (0.1 %) 00:00: each [place] nasal spray 00 nostril 2 Med ical (two) Branch times daily as needed. Use in each nostril as directed azelastine 3-0 Yes [id number] 1{spray Use 1 Univers 137 mcg 4-17 } [place] in ity of (0.1 %) 00:00: each [place] nasal spray 00 nostril 2 Med ical (two) Branch times daily as needed. Use in each nostril as directed azelastine 2023-0 Yes [id number] 1{spray Use 1 Univers 137 mcg 4-17 } [place] in ity of (0.1 %) 00:00: each [place] nasal spray 00 nostril 2 Med ical (two) Branch times daily as needed. Use in each nostril as directed azelastine 2023-0 Yes [id number] 1{spray Use 1 Univers 137 mcg 4-17 } [place] in ity of (0.1 %) 00:00: each [place] nasal spray 00 nostril 2 Med ical (two) Branch times daily as needed. Use in each nostril as directed azelastine 2023-0 Yes [id number] 1{spray Use 1 Univers 137 mcg 4-17 } [place] in ity of (0.1 %) 00:00: each [place] nasal spray 00 nostril 2 Med ical (two) Branch times daily as needed. Use in each nostril as directed azelastine 2023-0 Yes [id number] 1{spray Use 1 Univers 137 mcg 4-17 } [place] in ity of (0.1 %) 00:00: each [place] nasal spray 00 nostril 2 Med ical (two) Branch times daily as needed. Use in each nostril as directed azelastine 2023-0 Yes [id number] 1{spray Use 1 Univers 137 mcg 4-17 } [place] in ity of (0.1 %) 00:00: each [place] nasal spray 00 nostril 2 Med ical (two) Branch times daily as needed. Use in each nostril as directed azelastine 2023-0 Yes [id number] 1{spray Use 1 Univers 137 mcg 4-17 } [place] in ity of (0.1 %) 00:00: each [place] nasal spray 00 nostril 2 Med ical (two) Branch times daily as needed. Use in each nostril as directed azelastine 2023-0 Yes [id number] 1{spray Use 1 Univers 137 mcg 4-17 } [place] in ity of (0.1 %) 00:00: each [place] nasal spray 00 nostril 2 Med ical (two) Branch times daily as needed. Use in each nostril as directed azelastine 2023-0 Yes [id number] 1{spray Use 1 Univers 137 mcg 4-17 } [place] in ity of (0.1 %) 00:00: each [place] nasal spray 00 nostril 2 Med ical (two) Branch times daily as needed. Use in each nostril as directed azelastine 2023-0 Yes [id number] 1{spray Use 1 Univers 137 mcg 4-17 } [place] in ity of (0.1 %) 00:00: each [place] nasal spray 00 nostril 2 Med ical (two) Branch times daily as needed. Use in each nostril as directed azelastine 2023-0 Yes [id number] 1{spray Use 1 Univers 137 mcg 4-17 } [place] in ity of (0.1 %) 00:00: each [place] nasal spray 00 nostril 2 Med ical (two) Branch times daily as needed. Use in each nostril as directed azelastine 2023-0 Yes [id number] 1{spray Use 1 Univers 137 mcg 4-17 } [place] in ity of (0.1 %) 00:00: each [place] nasal spray 00 nostril 2 Med ical (two) Branch times daily as needed. Use in each nostril as directed azelastine 2023-0 Yes [id number] 1{spray Use 1 Univers 137 mcg 4-17 } [place] in ity of (0.1 %) 00:00: each [place] nasal spray 00 nostril 2 Med ical (two) Branch times daily as needed. Use in each nostril as directed azelastine 2023-0 Yes [id number] 1{spray Use 1 Univers 137 mcg 4-17 } [place] in ity of (0.1 %) 00:00: each [place] nasal spray 00 nostril 2 Med ical (two) Branch times daily as needed. Use in each nostril as directed azelastine 2023-0 Yes [id number] 1{spray Use 1 Univers 137 mcg 4-17 } [place] in ity of (0.1 %) 00:00: each [place] nasal spray 00 nostril 2 Med ical (two) Branch times daily as needed. Use in each nostril as directed azelastine 2023-0 Yes [id number] 1{spray Use 1 Univers 137 mcg 4-17 } [place] in ity of (0.1 %) 00:00: each [place] nasal spray 00 nostril 2 Med ical (two) Branch times daily as needed. Use in each nostril as directed azelastine 2023-0 Yes [id number] 1{spray Use 1 Univers 137 mcg 4-17 } [place] in ity of (0.1 %) 00:00: each [place] nasal spray 00 nostril 2 Med ical (two) Branch times daily as needed. Use in each nostril as directed azelastine 2023-0 Yes [id number] 1{spray Use 1 Univers 137 mcg 4-17 } [place] in ity of (0.1 %) 00:00: each [place] nasal spray 00 nostril 2 Med ical (two) Branch times daily as needed. Use in each nostril as directed azelastine 2023-0 Yes [id number] 1{spray Use 1 Univers 137 mcg 4-17 } [place] in ity of (0.1 %) 00:00: each [place] nasal spray 00 nostril 2 Med ical (two) Branch times daily as needed. Use in each nostril as directed methylpheni 3-0 2022- No [id number] 20mg Take 1 Univers date HCl 20 4-17 04-27 tablet by it y of mg tablet 00:00: 00:00 mouth in [place] 00 :00 the Medical morning Branch and 1 tablet in the evening. methylpheni 3-0 2022- No [id number] 20mg Take 1 Univers date HCl 20 4-17 04-27 tablet by it y of mg tablet 00:00: 00:00 mouth in [place] 00 :00 the Medical morning Branch and 1 tablet in the evening. dextroamphe 3-0 Yes [id number] 30mg Take 1 Univers tamine-amph 3-30 tablet by ity of etamine 30 00:00: mouth [place] mg tablet 00 every Medical morning Branch and at 1200 (noon). dextroamphe 2023-0 2022- No [id number] 30mg Take 1 Univers tamine-amph 3-30 04-17 tablet by it y of etamine 30 00:00: 00:00 mouth [place] mg tablet 00 :00 every Medical morning Branch and at 1200 (noon). dextroamphe 3-0 2022- No [id number] 30mg Take 1 Univers tamine-amph 3-30 04-17 tablet by it y of etamine 30 00:00: 00:00 mouth [place] mg tablet 00 :00 every Medical morning Branch and at 1200 (noon). azithromyci 2023-0 Yes [id number] Take two Univers n 250 mg 3-09 tablets my ity o f tablet 00:00: mouth today Medical followed Branch by one tablet daily for a total for 5 days azithromyci 2023-0 Yes [id number] Take two Univers n 250 mg 3-09 tablets my ity o f tablet 00:00: mouth today Medical followed Branch by one tablet daily for a total for 5 days azithromyci 2023-0 Yes [id number] Take two Univers n 250 mg 3-09 tablets my ity o f tablet 00:00: mouth [place] today Medical followed Branch by one tablet daily for a total for 5 days azithromyci 2023-0 Yes [id number] Take two Univers n 250 mg 3-09 tablets my ity o f tablet 00:00: mouth today Medical followed Branch by one tablet daily for a total for 5 days azithromyci 2023-0 Yes [id number] Take two Univers n 250 mg 3-09 tablets my ity o f tablet 00:00: mouth [place] today Medical followed Branch by one tablet daily for a total for 5 days azithromyci 2023-0 Yes [id number] Take two Univers n 250 mg 3-09 tablets my ity o f tablet 00:00: mouth [place] today Medical followed Branch by one tablet daily for a total for 5 days azithromyci 2023-0 Yes [id number] Take two Univers n 250 mg 3-09 tablets my ity o f tablet 00:00: mouth today Medical followed Branch by one tablet daily for a total for 5 days azithromyci 2023-0 Yes [id number] Take two Univers n 250 mg 3-09 tablets my ity o f tablet 00:00: mouth [place] today Medical followed Branch by one tablet daily for a total for 5 days azithromyci 2023-0 Yes [id number] Take two Univers n 250 mg 3-09 tablets my ity o f tablet 00:00: mouth [place] today Medical followed Branch by one tablet daily for a total for 5 days azithromyci 2023-0 2022- No [id number] Take two Univers n 250 mg 11-25-08 tablets my ity of tablet 00:00: 00:00 mouth [place] 00 :00 today Medical followed Branch by one tablet daily for a total for 5 days bromphenira 2022-0 Yes [id number] 10mL Take 10 mL Univers mine-pseudo 3-02 by mouth 4 it y of ephedrine-D 00:00: (four) [place] M (BROMFED 00 times Medical DM) 2-30-10 daily as Bran ch mg/5 mL needed for syrup Congestion /Allergies . dextroamphe 2022-0 Yes [id number] 30mg Take 1 Univers tamine-amph 3-02 tablet by ity of etamine 30 00:00: mouth [place] mg tablet 00 every Medical morning Branch and at 1200 (noon). albuterol 2022-0 Yes [id number] 2{puff} Inhale 2 Univers 90 3-02 Puffs ity of mcg/actuati 00:00: every 6 [place] on inhaler 00 (six) Medical hours as Branch needed for Wheezing or Shortness of Breath. inhalat.spa 2022-0 Yes [id number] 1{each} 1 Each Univers cing 3-02 every 6 ity of dev,large 00:00: (six) [place] mask 00 hours as Medical (BREATHERIT needed for Br anch E Other SPACER-MASK (Shortness ,ADULT) of breath; Spcr use as directed with inhaler). May substitute bromphenira 2022-0 Yes [id number] 10mL Take 10 mL [facility] mine-pseudo 3-02 by mouth 4 it y of ephedrine-D 00:00: (four[place] (BROMFED 00 times Medical DM) 2-30-10 daily as [place] ch mg/5 mL needed for syrup Congestion /Allergies . dextroamphe 2022-0 Yes [id number] 30mg Take 1 [facility] tamine-amph 3-02 tablet by ity of etamine 30 00:00: mouth [place] mg tablet 00 every Medical morning Branch and at 1200 (noon). albuterol 2022-0 Yes [id number] 2{puff} Inhale 2 [facility] 90 3-02 Puffs ity of mcg/actuati 00:00: every 6 [place] as on inhaler 00 (six) Medical hours as Branch needed for Wheezing or Shortness of Breath. inhalat.spa 0 Yes [id number] 1{each} 1 Each [facility] cing 3-02 every 6 ity of dev,large 00:00: (six) [place] mask 00 hours as Medical (BREATHERIT needed for Br anch E Other SPACER-MASK (Shortness ,ADULT) of breath; Spcr use as directed with inhaler). May substitute bromphenira 2023-0 Yes [id number] 10mL Take 10 mL [facility] mine-pseudo 3-02 by mouth 4 it y of ephedrine-D 00:00: (four) [place] (BROMFED 00 times Medical DM) 2-30-10 daily as [place] ch mg/5 mL needed for syrup Congestion /Allergies . dextroamphe 2023-0 Yes [id number] 30mg Take 1 [facility] tamine-amph 3-02 tablet by ity of etamine 30 00:00: mouth [place] mg tablet 00 every Medical morning Branch and at 1200 (noon). albuterol 2022-0 Yes [id number] 2{puff} Inhale 2 [facility] 90 3-02 Puffs ity of mcg/actuati 00:00: every 6 [place] as on inhaler 00 (six) Medical hours as Branch needed for Wheezing or Shortness of Breath. inhalat.spa 2022-0 Yes [id number] 1{each} 1 Each [facility] cing 3-02 every 6 ity of dev,large 00:00: (six) [place] mask 00 hours as Medical (BREATHERIT needed for Br anch E Other SPACER-MASK (Shortness ,ADULT) of breath; Spcr use as directed with inhaler). May substitute bromphenira 2023-0 Yes [id number] 10mL Take 10 mL [facility] mine-pseudo 3-02 by mouth 4 it y of ephedrine-D 00:00: (four) [place] (BROMFED 00 times Medical DM) 2-30-10 daily as [place] ch mg/5 mL needed for syrup Congestion /Allergies . dextroamphe 2023-0 Yes [id number] 30mg Take 1 [facility] tamine-amph 3-02 tablet by ity of etamine 30 00:00: mouth [place] mg tablet 00 every Medical morning Branch and at 1200 (noon). albuterol 3-0 Yes [id number] 2{puff} Inhale 2 [facility] 90 3-02 Puffs ity of mcg/actuati 00:00: every 6 [place] as on inhaler 00 (six) Medical hours as Branch needed for Wheezing or Shortness of Breath. inhalat.spa Yes [id number] 1{each} 1 Each [facility] cing 3-02 every 6 ity of dev,large 00:00: (six) [place] mask 00 hours as Medical (BREATHERIT needed for Br anch E Other SPACER-MASK (Shortness ,ADULT) of breath; Spcr use as directed with inhaler). May substitute bromphenira 2022-0 Yes [id number] 10mL Take 10 mL [facility] mine-pseudo 3-02 by mouth 4 it y of ephedrine-D 00:00: (four) [place] (BROMFED 00 times Medical DM) 2-30-10 daily as [place] ch mg/5 mL needed for syrup Congestion /Allergies . albuterol 2022-0 Yes [id number] 2{puff} Inhale 2 [facility] 90 3-02 Puffs ity of mcg/actuati 00:00: every 6 [place] as on inhaler 00 (six) Medical hours as Branch needed for Wheezing or Shortness of Breath. inhalat.spa Yes [id number] 1{each} 1 Each [facility] cing 3-02 every 6 ity of dev,large 00:00: (six) [place] mask 00 hours as Medical (BREATHERIT needed for Br anch E Other SPACER-MASK (Shortness ,ADULT) of breath; Spcr use as directed with inhaler). May substitute bromphenira 2022-0 Yes [id number] 10mL Take 10 mL [facility] mine-pseudo 3-02 by mouth 4 it y of ephedrine-D 00:00: (four) [place] (BROMFED 00 times Medical DM) 2-30-10 daily as [place] ch mg/5 mL needed for syrup Congestion /Allergies . albuterol 2022-0 Yes [id number] 2{puff} Inhale 2 [facility] 90 3-02 Puffs ity of mcg/actuati 00:00: every 6 [place] as on inhaler 00 (six) Medical hours as Branch needed for Wheezing or Shortness of Breath. inhalat.spa Yes [id number] 1{each} 1 Each [facility] cing 3-02 every 6 ity of dev,large 00:00: (six) [place] mask 00 hours as Medical (BREATHERIT needed for Br anch E Other SPACER-MASK (Shortness ,ADULT) of breath; Spcr use as directed with inhaler). May substitute bromphenira 2023-0 Yes [id number] 10mL Take 10 mL [facility] mine-pseudo 3-02 by mouth 4 it y of ephedrine-D 00:00: (four) [place] (BROMFED 00 times Medical DM) 2-30-10 daily as [place] ch mg/5 mL needed for syrup Congestion /Allergies . albuterol 2022-0 Yes [id number] 2{puff} Inhale 2 [facility] 90 3-02 Puffs ity of mcg/actuati 00:00: every 6 [place] as on inhaler 00 (six) Medical hours as Branch needed for Wheezing or Shortness of Breath. inhalat.spa 0 Yes [id number] 1{each} 1 Each [facility] cing 3-02 every 6 ity of dev,large 00:00: (six) [place] mask 00 hours as Medical (BREATHERIT needed for Br anch E Other SPACER-MASK (Shortness ,ADULT) of breath; Spcr use as directed with inhaler). May substitute bromphenira 2023-0 Yes [id number] 10mL Take 10 mL [facility] mine-pseudo 3-02 by mouth 4 it y of ephedrine-D 00:00: (four) [place] (BROMFED 00 times Medical DM) 2-30-10 daily as [place] ch mg/5 mL needed for syrup Congestion /Allergies . albuterol 2022-0 Yes [id number] 2{puff} Inhale 2 [facility] 90 3-02 Puffs ity of mcg/actuati 00:00: every 6 [place] as on inhaler 00 (six) Medical hours as Branch needed for Wheezing or Shortness of Breath. inhalat.spa 2022-0 Yes [id number] 1{each} 1 Each [facility] cing 3-02 every 6 ity of dev,large 00:00: (six) [place] mask 00 hours as Medical (BREATHERIT needed for Br anch E Other SPACER-MASK (Shortness ,ADULT) of breath; Spcr use as directed with inhaler). May substitute bromphenira 2023-0 Yes [id number] 10mL Take 10 mL [facility] mine-pseudo 3-02 by mouth 4 it y of ephedrine-D 00:00: (four) [place] (BROMFED 00 times Medical DM) 2-30-10 daily as [place] ch mg/5 mL needed for syrup Congestion /Allergies . albuterol 2022-0 Yes [id number] 2{puff} Inhale 2 [facility] 90 3-02 Puffs ity of mcg/actuati 00:00: every 6 [place] as on inhaler 00 (six) Medical hours as Branch needed for Wheezing or Shortness of Breath. inhalat.spa 0 Yes [id number] 1{each} 1 Each [facility] cing 3-02 every 6 ity of dev,large 00:00: (six) [place] mask 00 hours as Medical (BREATHERIT needed for Br anch E Other SPACER-MASK (Shortness ,ADULT) of breath; Spcr use as directed with inhaler). May substitute bromphenira 2022-0 Yes [id number] 10mL Take 10 mL [facility] mine-pseudo 3-02 by mouth 4 it y of ephedrine-D 00:00: (four) [place] (BROMFED 00 times Medical DM) 2-30-10 daily as [place] ch mg/5 mL needed for syrup Congestion /Allergies . albuterol 2022-0 Yes [id number] 2{puff} Inhale 2 [facility] 90 3-02 Puffs ity of mcg/actuati 00:00: every 6 [place] as on inhaler 00 (six) Medical hours as Branch needed for Wheezing or Shortness of Breath. inhalat.spa 0 Yes [id number] 1{each} 1 Each [facility] cing 3-02 every 6 ity of dev,large 00:00: (six) [place] mask 00 hours as Medical (BREATHERIT needed for Br anch E Other SPACER-MASK (Shortness ,ADULT) of breath; Spcr use as directed with inhaler). May substitute bromphenira 2023-0 Yes [id number] 10mL Take 10 mL [facility] mine-pseudo 3-02 by mouth 4 it y of ephedrine-D 00:00: (four) [place] (BROMFED 00 times Medical DM) 2-30-10 daily as [place] ch mg/5 mL needed for syrup Congestion /Allergies . albuterol 2022-0 Yes [id number] 2{puff} Inhale 2 [facility] 90 3-02 Puffs ity of mcg/actuati 00:00: every 6 [place] as on inhaler 00 (six) Medical hours as Branch needed for Wheezing or Shortness of Breath. inhalat.spa Yes [id number] 1{each} 1 Each [facility] cing 3-02 every 6 ity of dev,large 00:00: (six) [place] mask 00 hours as Medical (BREATHERIT needed for Br anch E Other SPACER-MASK (Shortness ,ADULT) of breath; Spcr use as directed with inhaler). May substitute bromphenira Yes [id number] 10mL Take 10 mL [facility] mine-pseudo 3-02 by mouth 4 it y of ephedrine-D 00:00: (four) [place] (BROMFED 00 times Medical DM) 2-30-10 daily as [place] ch mg/5 mL needed for syrup Congestion /Allergies . albuterol Yes [id number] 2{puff} Inhale 2 [facility] 90 3-02 Puffs ity of mcg/actuati 00:00: every 6 [place] as on inhaler 00 (six) Medical hours as Branch needed for Wheezing or Shortness of Breath. inhalat.spa Yes [id number] 1{each} 1 Each [facility] cing 3-02 every 6 ity of dev,large 00:00: (six) [place] mask 00 hours as Medical (BREATHERIT needed for Br anch E Other SPACER-MASK (Shortness ,ADULT) of breath; Spcr use as directed with inhaler). May substitute albuterol Yes [id number] 2{puff} Inhale 2 [facility] 90 3-02 Puffs ity of mcg/actuati 00:00: every 6 [place] as on inhaler 00 (six) Medical hours as Branch needed for Wheezing or Shortness of Breath. inhalat.spa Yes [id number] 1{each} 1 Each [facility] cing 3-02 every 6 ity of dev,large 00:00: (six) [place] mask 00 hours as Medical (BREATHERIT needed for Br anch E Other SPACER-MASK (Shortness ,ADULT) of breath; Spcr use as directed with inhaler). May substitute albuterol Yes [id number] 2{puff} Inhale 2 [facility] 90 3-02 Puffs ity of mcg/actuati 00:00: every 6 [place] as on inhaler 00 (six) Medical hours as Branch needed for Wheezing or Shortness of Breath. inhalat.spa Yes [id number] 1{each} 1 Each [facility] cing 3-02 every 6 ity of dev,large 00:00: (six) [place] mask 00 hours as Medical (BREATHERIT needed for Br anch E Other SPACER-MASK (Shortness ,ADULT) of breath; Spcr use as directed with inhaler). May substitute albuterol Yes [id number] 2{puff} Inhale 2 [facility] 90 3-02 Puffs ity of mcg/actuati 00:00: every 6 [place] as on inhaler 00 (six) Medical hours as Branch needed for Wheezing or Shortness of Breath. inhalat.spa Yes [id number] 1{each} 1 Each [facility] cing 3-02 every 6 ity of dev,large 00:00: (six) [place] mask 00 hours as Medical (BREATHERIT needed for Br anch E Other SPACER-MASK (Shortness ,ADULT) of breath; Spcr use as directed with inhaler). May substitute albuterol Yes [id number] 2{puff} Inhale 2 [facility] 90 3-02 Puffs ity of mcg/actuati 00:00: every 6 [place] as on inhaler 00 (six) Medical hours as Branch needed for Wheezing or Shortness of Breath. inhalat.spa Yes [id number] 1{each} 1 Each [facility] cing 3-02 every 6 ity of dev,large 00:00: (six) [place] mask 00 hours as Medical (BREATHERIT needed for Br anch E Other SPACER-MASK (Shortness ,ADULT) of breath; Spcr use as directed with inhaler). May substitute albuterol Yes [id number] 2{puff} Inhale 2 [facility] 90 3-02 Puffs ity of mcg/actuati 00:00: every 6 [place] as on inhaler 00 (six) Medical hours as Branch needed for Wheezing or Shortness of Breath. inhalat.spa Yes [id number] 1{each} 1 Each [facility] cing 3-02 every 6 ity of dev,large 00:00: (six) [place] mask 00 hours as Medical (BREATHERIT needed for Br anch E Other SPACER-MASK (Shortness ,ADULT) of breath; Spcr use as directed with inhaler). May substitute albuterol Yes [id number] 2{puff} Inhale 2 [facility] 90 3-02 Puffs ity of mcg/actuati 00:00: every 6 [place] as on inhaler 00 (six) Medical hours as Branch needed for Wheezing or Shortness of Breath. inhalat.spa Yes [id number] 1{each} 1 Each [facility] cing 3-02 every 6 ity of dev,large 00:00: (six) [place] mask 00 hours as Medical (BREATHERIT needed for Br anch E Other SPACER-MASK (Shortness ,ADULT) of breath; Spcr use as directed with inhaler). May substitute albuterol Yes [id number] 2{puff} Inhale 2 [facility] 90 3-02 Puffs ity of mcg/actuati 00:00: every 6 [place] as on inhaler 00 (six) Medical hours as Branch needed for Wheezing or Shortness of Breath. inhalat.spa Yes [id number] 1{each} 1 Each [facility] cing 3-02 every 6 ity of dev,large 00:00: (six) [place] mask 00 hours as Medical (BREATHERIT needed for Br anch E Other SPACER-MASK (Shortness ,ADULT) of breath; Spcr use as directed with inhaler). May substitute albuterol Yes [id number] 2{puff} Inhale 2 [facility] 90 3-02 Puffs ity of mcg/actuati 00:00: every 6 [place] as on inhaler 00 (six) Medical hours as Branch needed for Wheezing or Shortness of Breath. inhalat.spa Yes [id number] 1{each} 1 Each [facility] cing 3-02 every 6 ity of dev,large 00:00: (six) [place] mask 00 hours as Medical (BREATHERIT needed for Br anch E Other SPACER-MASK (Shortness ,ADULT) of breath; Spcr use as directed with inhaler). May substitute albuterol Yes [id number] 2{puff} Inhale 2 [facility] 90 3-02 Puffs ity of mcg/actuati 00:00: every 6 [place] as on inhaler 00 (six) Medical hours as Branch needed for Wheezing or Shortness of Breath. inhalat.spa Yes [id number] 1{each} 1 Each [facility] cing 3-02 every 6 ity of dev,large 00:00: (six) [place] mask 00 hours as Medical (BREATHERIT needed for Br anch E Other SPACER-MASK (Shortness ,ADULT) of breath; Spcr use as directed with inhaler). May substitute albuterol Yes [id number] 2{puff} Inhale 2 [facility] 90 3-02 Puffs ity of mcg/actuati 00:00: every 6 [place] as on inhaler 00 (six) Medical hours as Branch needed for Wheezing or Shortness of Breath. inhalat.spa Yes [id number] 1{each} 1 Each [facility] cing 3-02 every 6 ity of dev,large 00:00: (six) [place] mask 00 hours as Medical (BREATHERIT needed for Br anch E Other SPACER-MASK (Shortness ,ADULT) of breath; Spcr use as directed with inhaler). May substitute albuterol Yes [id number] 2{puff} Inhale 2 [facility] 90 3-02 Puffs ity of mcg/actuati 00:00: every 6 [place] as on inhaler 00 (six) Medical hours as Branch needed for Wheezing or Shortness of Breath. inhalat.spa Yes [id number] 1{each} 1 Each [facility] cing 3-02 every 6 ity of dev,large 00:00: (six) [place] mask 00 hours as Medical (BREATHERIT needed for Br anch E Other SPACER-MASK (Shortness ,ADULT) of breath; Spcr use as directed with inhaler). May substitute albuterol Yes [id number] 2{puff} Inhale 2 [facility] 90 3-02 Puffs ity of mcg/actuati 00:00: every 6 [place] as on inhaler 00 (six) Medical hours as Branch needed for Wheezing or Shortness of Breath. inhalat.spa Yes [id number] 1{each} 1 Each [facility] cing 3-02 every 6 ity of dev,large 00:00: (six) [place] mask 00 hours as Medical (BREATHERIT needed for Br anch E Other SPACER-MASK (Shortness ,ADULT) of breath; Spcr use as directed with inhaler). May substitute albuterol Yes [id number] 2{puff} Inhale 2 [facility] 90 3-02 Puffs ity of mcg/actuati 00:00: every 6 [place] as on inhaler 00 (six) Medical hours as Branch needed for Wheezing or Shortness of Breath. inhalat.spa Yes [id number] 1{each} 1 Each [facility] cing 3-02 every 6 ity of dev,large 00:00: (six) [place] mask 00 hours as Medical (BREATHERIT needed for Br anch E Other SPACER-MASK (Shortness ,ADULT) of breath; Spcr use as directed with inhaler). May substitute albuterol Yes [id number] 2{puff} Inhale 2 [facility] 90 3-02 Puffs ity of mcg/actuati 00:00: every 6 [place] on inhaler 00 (six) Medical hours as Branch needed for Wheezing or Shortness of Breath. inhalat.spa Yes [id number] 1{each} 1 Each [facility] cing 3-02 every 6 ity of dev,large 00:00: (six) [place] mask 00 hours as Medical (BREATHERIT needed for Br anch E Other SPACER-MASK (Shortness ,ADULT) of breath; Spcr use as directed with inhaler). May substitute albuterol Yes [id number] 2{puff} Inhale 2 [facility] 90 3-02 Puffs ity of mcg/actuati 00:00: every 6 [place] as on inhaler 00 (six) Medical hours as Branch needed for Wheezing or Shortness of Breath. inhalat.spa Yes [id number] 1{each} 1 Each [facility] cing 3-02 every 6 ity of dev,large 00:00: (six) [place] mask 00 hours as Medical (BREATHERIT needed for Br anch E Other SPACER-MASK (Shortness ,ADULT) of breath; Spcr use as directed with inhaler). May substitute bromphenira 2022- No [id number] 10mL Take 10 mL [facility] mine-pseudo 11-18 by mouth 4 i ty of ephedrine-D 00:00: 00:00 (four) [place] M (BROMFED 00 :00 times Medical DM) 2-30-10 daily as Bran ch mg/5 mL needed for syrup Congestion /Allergies . dextroamphe 2022- No [id number] 30mg Take 1 [facility] tamine-amph 3-02 -28 tablet by it y of etamine 30 00:00: 00:00 mouth [place] mg tablet 00 :00 every Medical morning Branch and at 1200 (noon). amphetamine 2022- Yes [id number] 30mg Take 2 [facility] -dextroamph 2-01 capsules ity of etamine 15 00:00: by mouth [place] mg 24 hr 00 every Medical capsule morning. Branch amphetamine Yes [id number] 30mg Take 2 [facility] -dextroamph 2-01 capsules ity of etamine 15 00:00: by mouth [place] mg 24 hr 00 every Medical capsule morning. Branch amphetamine 2022- No [id number] 30mg Take 2 [facility] -dextroamph 2-01 03- capsules ity of etamine 15 00:00: 00:00 by mouth [place] mg 24 hr 00 :00 every Medical capsule morning. Branch amphetamine 2022- No [id number] 30mg Take 2 [facility] -dextroamph 2- 03- capsules ity of etamine 15 00:00: 00:00 by mouth [place] mg 24 hr 00 :00 every Medical capsule morning. Branch amphetamine Yes [id number] 15mg Take 1 [facility] -dextroamph 1-24 capsule by it y of etamine 15 00:00: mouth [place] mg 24 hr 00 every Medical capsule morning. Branch May increase to two capsule daily if no improvemen t amphetamine 2022-2022- No [id number] 15mg Take 1 [facility] -dextroamph 1-24 02- capsule by i ty of etamine 15 00:00: 00:00 mouth [place] mg 24 hr 00 :00 every Medical capsule morning. Branch May increase to two capsule daily if no improvemen t amphetamine 2022- Yes [id number] 20mg Take 20 mg [facility] sulfate 1-20 by mouth ity of (EVEKEO) 10 00:00: every [place] mg Tab 00 morning Medical and at Branch 1200 (noon). amphetamine 2022-0 Yes [id number] 20mg Take 20 mg [facility] sulfate 1-20 by mouth ity of (EVEKEO) 10 00:00: every [place] mg Tab 00 morning Medical and at Branch 1200 (noon). amphetamine 2022-0 Yes [id number] 20mg Take 20 mg [facility] sulfate 1-20 by mouth ity of (EVEKEO) 10 00:00: every [place] mg Tab 00 morning Medical and at Branch 1200 (noon). amphetamine 2022-0 2023- No [id number] 20mg Take 20 mg [facility] sulfate 1-20 01-24 by mouth ity of (EVEKEO) 10 00:00: 00:00 [place] mg Tab 00 :00 morning Medical and at Branch 1200 (noon). amphetamine 2022-0 202- No [id number] 20mg Take 20 mg [facility] sulfate 1-20 01-24 by mouth ity of (EVEKEO) 10 00:00: 00:00 [place] mg Tab 00 :00 morning Medical and at Branch 1200 (noon). amphetamine 2022-0 Yes [id number] 10mg Take 10 mg [facility] sulfate 1-10 by mouth ity of (EVEKEO) 10 00:00: every [place] mg Tab 00 morning Medical and at Branch 1200 (noon). amphetamine 2022-0 Yes [id number] 10mg Take 10 mg [facility] sulfate 1-10 by mouth ity of (EVEKEO) 10 00:00: every [place] mg Tab 00 morning Medical and at Branch 1200 (noon). amphetamine 2022-0 Yes [id number] 10mg Take 10 mg [facility] sulfate 1-10 by mouth ity of (EVEKEO) 10 00:00: every [place] mg Tab 00 morning Medical and at Branch 1200 (noon). amphetamine 2022-0 Yes [id number] 10mg Take 10 mg [facility] sulfate 1-10 by mouth ity of (EVEKEO) 10 00:00: every [place] mg Tab 00 morning Medical and at Branch 1200 (noon). amphetamine 2022-0 2023- No [id number] 10mg Take 10 mg [facility] sulfate 1-10 01-20 by mouth ity of (EVEKEO) 10 00:00: 00:00 [place] mg Tab 00 :00 morning Medical and at Branch 1200 (noon). amphetamine 2022-0 2023- No [id number] 10mg Take 10 mg [facility] sulfate 1-10 01-20 by mouth ity of (EVEKEO) 10 00:00: 00:00 [place] mg Tab 00 :00 morning Medical and at Branch 1200 (noon). amphetamine 2022022- No [id number] 10mg Take 10 mg [facility] sulfate 1-10 -20 by mouth ity of (EVEKEO) 10 00:00: 00:00 every [place] mg Tab 00 :00 morning Medical and at Branch 1200 (noon). amphetamine 2022- No [id number] 10mg Take 10 mg [facility] sulfate 1-10 -20 by mouth ity of (EVEKEO) 10 00:00: 00:00 every [place] mg Tab 00 :00 morning Medical and at Branch 1200 (noon). dextroamphe 2021-09 Yes [id number] 15mg Take 2 [facility] tamine-amph 2-30 tablets by it y of etamine 00:00: mouth [place] (ADDERALL) 00 every Medical 7.5 mg morning Branch tablet and at 1200 (noon). dextroamphe 2021-09- No [id number] 15mg Take 2 [facility] tamine-amph 2-30 01-10 tablets by i ty of etamine 00:00: 00:00 mouth [place] (ADDERALL) 00 :00 every Medical 7.5 mg morning Branch tablet and at 1200 (noon). dextroamphe 2021-09- No [id number] 15mg Take 2 [facility] tamine-amph 2-30 01-10 tablets by i ty of etamine 00:00: 00:00 mouth [place] (ADDERALL) 00 :00 every Medical 7.5 mg morning Branch tablet and at 1200 (noon). dextroamphe 2021-09- No [id number] 15mg Take 2 [facility] tamine-amph 2-30 01-10 tablets by i ty of etamine 00:00: 00:00 mouth [place] (ADDERALL) 00 :00 every Medical 7.5 mg morning Branch tablet and at 1200 (noon). dextroamphe 2021-09- No [id number] 15mg Take 2 [facility] tamine-amph 2-30 01-10 tablets by i ty of etamine 00:00: 00:00 mouth [place] (ADDERALL) 00 :00 every Medical 7.5 mg morning Branch tablet and at 1200 (noon). dextroamphe 2021-09- No [id number] 15mg Take 2 [facility] tamine-amph 2-30 01-10 tablets by i ty of etamine 00:00: 00:00 mouth [place] (ADDERALL) 00 :00 every Medical 7.5 mg morning Branch tablet and at 1200 (noon). dextroamphe 2021-09- No [id number] 15mg Take 2 [facility] tamine-amph 2-30 01-10 tablets by i ty of etamine 00:00: 00:00 mouth [place] (ADDERALL) 00 :00 every Medical 7.5 mg morning Branch tablet and at 1200 (noon). dextroamphe 2021-09 Yes [id number] TAKE ONE [facility] tamine-amph 2-09 (1) ity of etamine 30 00:00: TABLET(S) [place] mg tablet 00 BY MOUTH Medica l EVERY Branch MORNING AND AT NOON. dextroamphe 2021-09 Yes [id number] TAKE ONE [facility] tamine-amph 2-09 (1) ity of etamine 30 00:00: TABLET(S) [place] mg tablet 00 BY MOUTH Medica l EVERY Branch MORNING AND AT NOON. dextroamphe 2021-09 Yes [id number] TAKE ONE [facility] tamine-amph 2-09 (1) ity of etamine 30 00:00: TABLET(S) [place] mg tablet 00 BY MOUTH Medica l EVERY Branch MORNING AND AT NOON. dextroamphe 2021-09 Yes [id number] 15mg Take 1 [facility] tamine 2-09 capsule by ity of sulfate 15 00:00: mouth in [place] mg 24 hr 00 the Medical capsule morning. Branch dextroamphe 2021-09 Yes [id number] 15mg Take 1 [facility] tamine 2-09 capsule by ity of sulfate 15 00:00: mouth in [place] mg 24 hr 00 the Medical capsule morning. Branch dextroamphe 2021-09 Yes [id number] 15mg Take 1 [facility] tamine 2-09 capsule by ity of sulfate 15 00:00: mouth in [place] mg 24 hr 00 the Medical capsule morning. Branch dextroamphe 2021-09 Yes [id number] 15mg Take 1 [facility] tamine 2-09 capsule by ity of sulfate 15 00:00: mouth in [place] mg 24 hr 00 the Medical capsule morning. Branch dextroamphe 2021-09 Yes [id number] 15mg Take 1 [facility] tamine 2-09 capsule by ity of sulfate 15 00:00: mouth in [place] mg 24 hr 00 the Medical capsule morning. [place] dextroamphe 2021-09- No [id number] 15mg Take 1 [facility] tamine 10-28 capsule by ity of sulfate 15 00:00: 00:00 mouth in [place] mg 24 hr 00 :00 the Medical capsule morning. [place] dextroamphe 2021-09- No [id number] TAKE ONE [facility] tamine-amph 10-28 (1) ity of etamine 30 00:00: 00:00 TABLET(S) [place] mg tablet 00 :00 BY MOUTH Medica l EVERY Branch MORNING AND AT NOON. dextroamphe 2021-09 Yes [id number] TAKE ONE [facility] tamine-amph 09-27 () ity of etamine 30 00:00: TABLET(S) [place] mg tablet 00 BY MOUTH Medica l EVERY Branch MORNING AND AT NOON. dextroamphe 2021-09- No [id number] TAKE ONE [facility] tamine-amph 09-27 (1) ity of etamine 30 00:00: 00:00 TABLET(S) [place] mg tablet 00 :00 BY MOUTH Medica l EVERY Branch MORNING AND AT NOON. dextroamphe 2021-09- No [id number] TAKE ONE [facility] tamine-amph 09-27 (1) ity of etamine 30 00:00: 00:00 TABLET(S) [place] mg tablet 00 :00 BY MOUTH Medica l EVERY Branch MORNING AND AT NOON. dextroamphe 2021-09- No [id number] TAKE ONE [facility] tamine-amph 09-27 (1) ity of etamine 30 00:00: 00:00 TABLET(S) [place] mg tablet 00 :00 BY MOUTH Medica l EVERY Branch MORNING AND AT NOON. dextroamphe 2021-09- No [id number] TAKE ONE [facility] tamine-amph 09-27 (1) ity of etamine 30 00:00: 00:00 TABLET(S) [place] mg tablet 00 :00 BY MOUTH Medica l EVERY Branch MORNING AND AT NOON. methylPREDN 2021-09- No [id number] 80mg U nivers ISolone 0-19 10-20 ity of acetate 19:00: 06:59 [place] (DEPO-MEDRO 00 :00 Medical L) Branch injection 80 mg methylPREDN 2021-09- No [id number] 80mg U nivers ISolone 0-19 10-19 ity of acetate 19:00: 18:34 [place] (DEPO-MEDRO 00 :00 Medical L) Branch injection 80 mg methylPREDN 2021-09- No [id number] 80mg 80 mg, [facility] ISolone 0-19 10-19 Intramuscu ity o f acetate 19:00: 18:34 [place], ONCE, [place] (DEPO-MEDRO 00 :00 1 dose, On Me dical L) Wed Branch injection 07/07/22 80 mg at 1400, Routine methylPREDN 2021-09- No [id number] 80mg U nivers ISolone 0-19 10-19 ity of acetate 19:00: 18:34 [place] (DEPO-MEDRO 00 :00 Medical L) Branch injection 80 mg methylPREDN 2021-09- No [id number] 80mg 80 mg, [facility] ISolone 0-19 10-19 Intramuscu ity o f acetate 19:00: 18:34 [place], ONCE, [place] (DEPO-MEDRO 00 :00 1 dose, On Me dical L) Wed Branch injection 07/07/22 80 mg at 1400, Routine benzonatate 2021-09 Yes [id number] 100mg Take 1 Univers (TESSALON 0-19 capsule by ity of [place]) 100 00:00: mouth 3 [place] mg capsule 00 (three) Medica l times Branch daily as needed for Cough. azelastine 2021-09 Yes [id number] 1{spray Use 1 [facility] 137 mcg 0-19 } [facility] in ity of (0.1 %) 00:00: each [place] nasal spray 00 nostril in Me dical the Branch morning and 1 [facility] in the evening. Use in each nostril as directed benzonatate 2021-09 Yes [id number] 100mg Take 1 [facility] (TESSALON 0-19 capsule by ity of [place]) 100 00:00: mouth 3 [place] mg capsule 00 (three) Medica l times Branch daily as needed for Cough. azelastine 2021-09 Yes [id number] 1{spray Use 1 [facility] 137 mcg 0-19 } [facility] in ity of (0.1 %) 00:00: each [place] nasal spray 00 nostril in Mn dical the Branch morning and 1 [facility] in the evening. Use in each nostril as directed benzonatate 2021-09 Yes [id number] 100mg Take 1 [facility] (TESSALON 0-19 capsule by ity of [place]) 100 00:00: mouth 3 [place] mg capsule 00 (three) Medica l times Branch daily as needed for Cough. azelastine 2021-09 Yes [id number] 1{spray Use 1 [facility] 137 mcg 0-19 } [facility] in ity of (0.1 %) 00:00: each [place] [facility] 1 [facility] in the evening. Use in each nostril as directed benzonatate 2021-09 Yes [id number] 100mg Take 1 [facility] (TESSALON 0-19 capsule by ity of [employer]) 100 00:00: mouth 3 [place] mg capsule 00 (three) Medica l times Branch daily as needed for Cough. azelastine 2021-09 Yes [id number] 1{spray Use 1 [facility] 137 mcg 0-19 } [facility] in ity of (0.1 %) 00:00: each [place] nasal [facility] 1 [facility] in the evening. Use in each nostril as directed azelastine 2021-09 Yes [id number] 1{spray Use 1 [facility] 137 mcg 0-19 } [facility] in ity of (0.1 %) 00:00: each [place] [facility] 1 [facility] in the evening. Use in each nostril as directed azelastine 2021-09 Yes [id number] 1{spray Use 1 [facility] 137 mcg 0-19 } [facility] in ity of (0.1 %) 00:00: each [place] [facility] 1 [facility] in the evening. Use in each nostril as directed azelastine 2021-09 Yes [id number] 1{spray Use 1 [facility] 137 mcg 0-19 } [facility] in ity of (0.1 %) 00:00: each [place] nasal [facility] 1 [facility] in the evening. Use in each nostril as directed azelastine 2021- Yes [id number] 1{spray Use 1 [facility] 137 mcg 0-19 } [facility] in ity of (0.1 %) 00:00: each [place] nasal spray 00 nostril in Me dical the Branch morning and 1 [facility] in the evening. Use in each nostril as directed azelastine 2021- Yes [id number] 1{spray Use 1 [facility] 137 mcg 0-19 } [facility] in ity of (0.1 %) 00:00: each [place] nasal spray 00 nostril in Me dical the Branch morning and 1 [facility] in the evening. Use in each nostril as directed azelastine 2021- Yes [id number] 1{spray Use 1 [facility] 137 mcg 0-19 } [facility] in ity of (0.1 %) 00:00: each [place] nasal spray 00 nostril in Me dical the Branch morning and 1 [facility] in the evening. Use in each nostril as directed azelastine 2021- Yes [id number] 1{spray Use 1 [facility] 137 mcg 0-19 } [facility] in ity of (0.1 %) 00:00: each [place] nasal spray 00 nostril in Me dical the Branch morning and 1 [facility] in the evening. Use in each nostril as directed azelastine 2021- Yes [id number] 1{spray Use 1 [facility] 137 mcg 0-19 } [facility] in ity of (0.1 %) 00:00: each [place] nasal spray 00 nostril in Me dical the Branch morning and 1 [facility] in the evening. Use in each nostril as directed azelastine 2021-1 Yes [id number] 1{spray Use 1 [facility] 137 mcg 0-19 } [facility] in ity of (0.1 %) 00:00: each [place] nasal spray 00 nostril in Me dical the Branch morning and 1 [facility] in the evening. Use in each nostril as directed azelastine 2021- Yes [id number] 1{spray Use 1 [facility] 137 mcg 0-19 } [facility] in ity of (0.1 %) 00:00: each [place] nasal spray 00 nostril in Me dical the Branch morning and 1 [facility] in the evening. Use in each nostril as directed azelastine 2021-09 Yes [id number] 1{spray Use 1 [facility] 137 mcg 0-19 } [facility] in ity of (0.1 %) 00:00: each [place] nasal spray 00 nostril in Me dical the Branch morning and 1 [facility] in the evening. Use in each nostril as directed azelastine 2021- Yes [id number] 1{spray Use 1 [facility] 137 mcg 0-19 } [facility] in ity of (0.1 %) 00:00: each [place] nasal spray 00 nostril in Me dical the Branch morning and 1 [facility] in the evening. Use in each nostril as directed azelastine 2021-09 Yes [id number] 1{spray Use 1 [facility] 137 mcg 0-19 } [facility] in ity of (0.1 %) 00:00: each [place] nasal spray 00 nostril in Mn dical the Branch morning and 1 [facility] in the evening. Use in each nostril as directed azelastine 2021-09 Yes [id number] 1{spray Use 1 [facility] 137 mcg 0-19 } [facility] in ity of (0.1 %) 00:00: each [place] nasal spray 00 nostril in Mn dical the Branch morning and 1 [facility] in the evening. Use in each nostril as directed azelastine 2021-09 Yes [id number] 1{spray Use 1 [facility] 137 mcg 0-19 } [facility] in ity of (0.1 %) 00:00: each [place] nasal spray 00 nostril in Me dical the Branch morning and 1 [facility] in the evening. Use in each nostril as directed azelastine 2021- Yes [id number] 1{spray Use 1 [facility] 137 mcg 0-19 } [facility] in ity of (0.1 %) 00:00: each [place] nasal spray 00 nostril in Me dical the Branch morning and 1 [facility] in the evening. Use in each nostril as directed azelastine 2021- Yes [id number] 1{spray Use 1 [facility] 137 mcg 0-19 } [facility] in ity of (0.1 %) 00:00: each [place] nasal spray 00 nostril in Me dical the Branch morning and 1 [facility] in the evening. Use in each nostril as directed azelastine 2021- Yes [id number] 1{spray Use 1 [facility] 137 mcg 0-19 } [facility] in ity of (0.1 %) 00:00: each [place] nasal spray 00 nostril in Mn dical the Branch morning and 1 [facility] in the evening. Use in each nostril as directed azelastine 2021- Yes [id number] 1{spray Use 1 [facility] 137 mcg 0-19 } [facility] in ity of (0.1 %) 00:00: each [place] nasal spray 00 nostril in Mn dical the Branch morning and 1 [facility] in the evening. Use in each nostril as directed azelastine 2021- Yes [id number] 1{spray Use 1 [facility] 137 mcg 0-19 } [facility] in ity of (0.1 %) 00:00: each [place] [facility] 1 [facility] in the evening. Use in each nostril as directed azelastine 2021- Yes [id number] 1{spray Use 1 [facility] 137 mcg 0-19 } [facility] in ity of (0.1 %) 00:00: each [place] nasal spray 00 nostril in Mn dical the Branch morning and 1 [facility] in the evening. Use in each nostril as directed azelastine 2021- Yes [id number] 1{spray Use 1 [facility] 137 mcg 0-19 } [facility] in ity of (0.1 %) 00:00: each [place] nasal spray 00 nostril in Mn dical the Branch morning and 1 [facility] in the evening. Use in each nostril as directed azelastine 2021-1 Yes [id number] 1{spray Use 1 [facility] 137 mcg 0-19 } [facility] in ity of (0.1 %) 00:00: each [place] nasal spray 00 nostril in Mn dical the Branch morning and 1 [facility] in the evening. Use in each nostril as directed azelastine 2021- Yes [id number] 1{spray Use 1 [facility] 137 mcg 0-19 } [facility] in ity of (0.1 %) 00:00: each [place] nasal spray 00 nostril in Mn dical the Branch morning and 1 [facility] in the evening. Use in each nostril as directed azelastine 2021- Yes [id number] 1{spray Use 1 [facility] 137 mcg 0-19 } [facility] in ity of (0.1 %) 00:00: each [place] nasal spray 00 nostril in Mn dical the Branch morning and 1 [facility] in the evening. Use in each nostril as directed azelastine 2021-09 Yes [id number] 1{spray Use 1 [facility] 137 mcg 0-19 } [facility] in ity of (0.1 %) 00:00: each [place] nasal spray 00 nostril in Mn dical the Branch morning and 1 [facility] in the evening. Use in each nostril as directed azelastine 2021-09- No [id number] 1{spray Use 1 [facility] 137 mcg 0-19 04-17 } [facility] in ity of (0.1 %) 00:00: 00:00 each [place] nasal spray 00 :00 nostril in Mn dical the Branch morning and 1 [facility] in the evening. Use in each nostril as directed azelastine 2021-09- No [id number] 1{spray Use 1 [facility] 137 mcg 0-19 04-17 } [facility] in ity of (0.1 %) 00:00: 00:00 each [place] nasal spray 00 :00 nostril in Mn dical the Branch morning and 1 [facility] in the evening. Use in each nostril as directed benzonatate 2021-09- No [id number] 100mg Take 1 [facility] (TESSALON 0-19 12-09 capsule by [place]) 100 00:00: 00:00 mouth 3 [place] mg capsule 00 :00 (three) Medica l times Branch daily as needed for Cough. benzonatate 2021-09- No [id number] 100mg Take 1 [facility] (TESSALON 0-19 12-09 capsule by A[place]) 100 00:00: 00:00 mouth 3 [place] mg capsule 00 :00 (three) Medica l times Branch daily as needed for Cough. benzonatate 2021-09- No [id number] 100mg Take 1 [facility] (TESSALON 0-19 12-09 capsule by [place]) 100 00:00: 00:00 mouth 3 [place] mg capsule 00 :00 (three) Medica l times Branch daily as needed for Cough. benzonatate 2021-09- No [id number] 100mg Take 1 [facility] (TESSALON 0-19 12-09 capsule by ity of [place]) 100 00:00: 00:00 mouth 3 [place] mg capsule 00 :00 (three) Medica l times Branch daily as needed for Cough. DEXTROAMPHE 2021-09 Yes [id number] TAKE ONE Univers TAMINE-AMPH 0-11 (1) ity of ETAMINE 30 00:00: TABLET(S) [place] mg tablet 00 BY MOUTH Medica l EVERY Branch MORNING AND AT NOON. DEXTROAMPHE 2021- Yes [id number] TAKE ONE Univers TAMINE-AMPH 0-11 (1) ity of ETAMINE 30 00:00: TABLET(S) [place] mg tablet 00 BY MOUTH Medica l EVERY Branch MORNING AND AT NOON. DEXTROAMPHE 2021- Yes [id number] TAKE ONE Univers TAMINE-AMPH 0-11 (1) ity of ETAMINE 30 00:00: TABLET(S) [place] mg tablet 00 BY MOUTH Medica l EVERY Branch MORNING AND AT NOON. DEXTROAMPHE 2021- Yes [id number] TAKE ONE Univers TAMINE-AMPH 0-11 (1) ity of ETAMINE 30 00:00: TABLET(S) [place] mg tablet 00 BY MOUTH Medica l EVERY Branch MORNING AND AT NOON. DEXTROAMPHE 2021-09- No [id number] TAKE ONE Univers TAMINE-AMPH 0-11 07-28 (1) ity of ETAMINE 30 00:00: 00:00 TABLET(S) [place] mg tablet 00 :00 BY MOUTH Medica l EVERY Branch MORNING AND AT NOON. dextroamphe 2021-0 Yes [id number] 30mg Take 1 [facility] tamine-amph 9-15 tablet by ity of etamine 00:00: mouth [place] (ADDERALL) 00 every Medical 30 mg morning Branch tablet and at 1200 (noon). dextroamphe 2021-0 Yes [id number] 30mg Take 1 [facility] tamine-amph 9-15 tablet by ity of etamine 00:00: mouth [place] (ADDERALL) 00 every Medical 30 mg morning Branch tablet and at 1200 (noon). dextroamphe 2021-0 Yes [id number] 30mg Take 1 [facility] tamine-amph 9-15 tablet by ity of etamine 00:00: mouth [place] (ADDERALL) 00 every Medical 30 mg morning Branch tablet and at 1200 (noon). dextroamphe 2021- No [id number] 30mg Take 1 [facility] tamine-amph 9-15 10-11 tablet by it y of etamine 00:00: 00:00 mouth [place] (ADDERALL) 00 :00 every Medical 30 mg morning Branch tablet and at 1200 (noon). dextroamphe 2021- No [id number] 30mg Take 1 [facility] tamine-amph 8-18 09-15 tablet by it y of etamine 00:00: 00:00 mouth in [place] (ADDERALL) 00 :00 the Medical 30 mg morning. Branch tablet Vital Signs Vital Name Observation Time Observation Value Comments Source Systolic blood 2023-05-13 19:32:00 134 mm[Hg] Univer sity of [facility] Diastolic blood 2023-05-13 19:32:00 83 mm[Hg] Unive rsity of [facility] Heart rate 2023-05-13 19:32:00 94 /min [facility] Body temperature 2023-05-13 19:32:00 36.56 [facility] Body height 2023-05-13 19:32:00 152.4 cm [facility] Body weight 2023-05-13 19:32:00 64.638 kg [facility] BMI 2023-05-13 19:32:00 27.83 kg/m2 [facility] Oxygen saturation in 2023-05-13 19:32:00 97 /min [facility] Arterial blood by [facility] Pulse oximetry Branch Systolic blood 2023-04-28 21:10:00 101 mm[Hg] Univer sity of [facility] Diastolic blood 2023-04-28 21:10:00 71 mm[Hg] Unive rsity of [facility] Heart rate 2023-04-28 21:10:00 86 /min [facility] Respiratory rate 2023-04-28 21:10:00 18 [facility] Body height 2023-04-28 21:10:00 152.4 cm [facility] Body weight 2023-04-28 21:10:00 63.413 kg [facility] Branch BMI 2023-04-28 21:10:00 27.30 kg/m2 Universi ty [facility] [place] [facility] Oxygen saturation in 2023-04-28 21:10:00 99 /min University of Arterial blood by [facility] Pulse oximetry Branch Systolic blood 2023-03-26 17:45:00 118 mm[Hg] Univer sity of pressure [place] [facility] Diastolic blood 2023-03-26 17:45:00 70 mm[Hg] Unive rsity of [facility] [place] [facility] Heart rate 2023-03-26 17:45:00 83 /min [facility] [place] [facility] Body temperature 2023-03-26 17:45:00 36.89 Sally [facility] ersity of [place] [facility] Respiratory rate 2023-03-26 17:45:00 17 /min Univ ersity of [place] [facility] Body height 2023-03-26 17:45:00 152.4 cm [facility] [place] [facility] Body weight 2023-03-26 17:45:00 61.326 kg [facility] [place] [facility] BMI 2023-03-26 17:45:00 26.40 kg/m2 [facility] [place] [facility] Oxygen saturation in 2023-03-26 17:45:00 98 /min University of Arterial blood by [facility] Pulse oximetry Branch Systolic blood 2023-01-03 20:45:00 118 mm[Hg] Univer sity of [facility] [place] [facility] Diastolic blood 2023-01-03 20:45:00 76 mm[Hg] Unive rsity of [facility] [place] [facility] Heart rate 2023-01-03 20:45:00 81 /min [facility] [place] [facility] Body temperature 2023-01-03 20:45:00 36.61 Sally [facility] ersity of [place] [facility] Respiratory rate 2023-01-03 20:45:00 18 /min Univ ersity of [place] [facility] Body height 2023-01-03 20:45:00 152.4 cm [facility] [place] [facility] Body weight 2023-01-03 20:45:00 60.873 kg [facility] [place] [facility] BMI 2023-01-03 20:45:00 26.21 kg/m2 [facility] [place] [facility] Oxygen saturation in 2023-01-03 20:45:00 99 /min University of Arterial blood by [facility] gwendolyn Pulse oximetry Branch Systolic blood 2022-11-18 20:05:00 125 mm[Hg] Univer sity of [facility] [place] [facility] Diastolic blood 2022-11-18 20:05:00 75 mm[Hg] Unive rsity of [facility] [place] [facility] Heart rate 2022-11-18 20:05:00 74 /min [facility]i [facility] [place] [facility] Body temperature 2022-11-18 20:05:00 36.33 Sally [facility] ersity [facility] [place] [facility] Body height 2022-11-18 20:05:00 152.4 cm [facility] [place] [facility] Body weight 2022-11-18 20:05:00 60.328 kg [facility] [place] [facility] BMI 2022-11-18 20:05:00 25.97 kg/m2 [facility] [place] [facility] Oxygen saturation in 2022-11-18 20:05:00 100 /min University of Arterial blood by [facility] Pulse oximetry Branch Systolic blood 2022-09-28 19:02:00 116 mm[Hg] Univer sity of pressure [place] [facility] Diastolic blood 2022-09-28 19:02:00 74 mm[Hg] Unive rsity of [facility] [place] [facility] Heart rate 2022-09-28 19:02:00 78 /min [facility] [place] [facility] Body temperature 2022-09-28 19:02:00 37.17 Sally [facility] ersity [facility] [place] [facility] Body height 2022-09-28 19:02:00 152.4 cm [facility] [place] [facility] Body weight 2022-09-28 19:02:00 58.06 kg [facility] [place] [facility] BMI 2022-09-28 19:02:00 25.00 kg/m2 [facility] [place] [facility] Oxygen saturation in 2022-09-28 19:02:00 99 /min University of Arterial blood by [facility] Pulse oximetry Branch Systolic blood 2022-08-27 19:51:00 133 mm[Hg] Univer sity of [facility] [place] [facility] Diastolic blood 2022-08-27 19:51:00 82 mm[Hg] Unive rsity of pressure [place] [facility] Heart rate 2022-08-27 19:51:00 72 /min Universi [facility] [place] [facility] Body height 2022-08-27 19:51:00 152.4 cm [facility] [place] [facility] Body weight 2022-08-27 19:51:00 57.607 kg [facility]i [facility] [place] [facility] BMI 2022-08-27 19:51:00 24.80 kg/m2 [facility] [place] [facility] Oxygen saturation in 2022-08-27 19:51:00 99 /min University of Arterial blood by [place] [employer] gwendolyn Pulse oximetry Branch Systolic blood 2022-07-07 17:56:00 120 mm[Hg] Univer sity of [facility] [place] [facility] Diastolic blood 2022-07-07 17:56:00 76 mm[Hg] Unive rsity of pressure [place] [facility] Heart rate 2022-07-07 17:56:00 85 /min [facility] [place] [facility] Body temperature 2022-07-07 17:56:00 36.5 Sally [facility] ers[facility] [place] [facility] Body height 2022-07-07 17:56:00 152.4 cm [facility] [place] [facility] Body weight 2022-07-07 17:56:00 59.966 kg [facility] [place] [facility] BMI 2022-07-07 17:56:00 25.82 kg/m2 [facility] [place] [facility] Oxygen saturation in 2022-07-07 17:56:00 100 /min University of Arterial blood by [place] [employer] gwendolyn Pulse oximetry Branch Systolic blood 2022-06-03 20:45:00 131 mm[Hg] Univer sity of [facility] [place] [facility] Diastolic blood 2022-06-03 20:45:00 82 mm[Hg] Unive rsity of pressure [place] [facility] Heart rate 2022-06-03 20:45:00 84 /min [facility] [place] [facility] Body temperature 2022-06-03 20:45:00 37.39 Sally [facility] ers[facility] [place] [facility] Body height 2022-06-03 20:45:00 152.4 cm [facility] [place] [facility] Body weight 2022-06-03 20:45:00 60.782 kg [facility] [place] [facility] BMI 2022-06-03 20:45:00 26.17 kg/m2 [facility] [place] [facility] Oxygen saturation in 2022-06-03 20:45:00 99 /min University of Arterial blood by [place] [employer] gwendolyn Pulse oximetry Branch Procedures Procedure Date / Time Performed Performing Clinician [facility] e DISCLOSURE AND 2023-05-13 05:01:00 Doctor Unassigned, No Un[facility]ity of [place] CONSENT, MEDICAL AND Name [facility] SURGICAL PROCEDURES REFERRAL- 2023-04-29 05:01:00 Doctor Unassigned, No [facility] of [place] REQUEST/RESPONSE Name [facility] PAIN MANAGEMENT 2022-06-03 05:01:00 Doctor Unassigned, No [facility] of [place] AGREEMENT & INFORMED Name [facility] CONSENT Encounters Start End Encounter Admission Attending Care Care Encounter Source Date/Time Date/Time Type Type Clinicians Facility Department ID 2023-05-31 2023-05-31 Patient Leilani [facility] [id number] Univers 00:00:00 00:00:00 Secure Msg [facility] [id number] ity of [place] [id number] [place] as ARABELLA?BLEA [id number] [address] MEDICAL OFFICE [facility] 2023-05-26 2023-05-26 Outpatient R [facility]AN [facility] [id number] Univers 10:40:00 10:40:00 JOAN DU[facility] 2023-05-16 2023-05-16 Telephone Leilani WYKASSIE [id number] Univers 00:00:00 00:00:00 [facility] [id number] ity of [place] [id number] [place] ARABELLA?BLEA [id number] [address] MEDICAL OFFICE [facility] 2023-05-13 2023-05-13 Outpatient R [facility] [id number] Univers 14:40:00 15:10:40 JOAN [facility] 2023-05-13 2023-05-13 Office Leilani [facility] [id number] [id number] Univers 14:40:00 15:10:40 Visit [facility] [id number] [facility] [id number] [place] ARABELLA?BLEA [id number] [address] OFFICE [facility] 2023-05-13 2023-05-13 Letter [facility] [id number] Univers 00:00:00 00:00:00 (Out) Joan [place] [id number] ity of [facility] [id number] [id number] [address] 2023-05-13 2023-05-13 Orders Doctor YVAN [id number] [id number] Univers 00:00:00 00:00:00 Only Unassigned, KELLY [id number] ity of [facility] [id number] [place] as [id number] [address] 2023-05-09 2023-05-09 [facility] [id number] Univers 00:00:00 00:00:00 [facility] [id number] [facility] [place] [id number] [place] as ARABELLA?BLEA [id number] [address] OFFICE [facility] 2023-05-05 2023-05-05 [facility] [id number] Univers 00:00:00 00:00:00 Secure [facility] HEALTH [id number] ity of [place] [id number] [place] ARABELLA?BLEA [id number] [address] OFFICE [facility] 2023-04-29 2023-04-29 Orders Doctor YVAN [id number] [id number] Univers 00:00:00 00:00:00 Only Unassigned, KELLY [id number] ity of [facility] [id number] [place] as [id number] [address] 2023-04-28 2023-04-28 Outpatient R [facility] [id number] Univers 16:00:00 16:28:29 JOAN [facility] 2023-04-28 2023-04-28 Office [facility] 1.2.840.114 [id number] Univers 16:00:00 16:28:29 Visit [facility] [id number] ity of [place] [id number] [place] as ARABELLA?BLEA [id number] [facility] [address] MEDICAL OFFICE [facility] 2023-03-30 2023-03-30 Patient [facility] 1.2.840.114 [id number] Univers 00:00:00 00:00:00 Secure Msg [facility] [id number] ity of [place] [id number] [place] as ARABELLA?BLEA [id number] [address] OFFICE [facility] 2023-03-30 2023-03-30 [facility]ill [facility] [id number] [id number] Univers 00:00:00 00:00:00 [facility] [id number] ity of [place] [id number] [place] ARABELLA?BLEA [id number] [address] MEDICAL OFFICE [facility] 2023-03-26 2023-03-26 Outpatient R [facility] [id number] Univers 12:40:00 13:01:19 REENU ity of [facility] 2023-03-26 2023-03-26 Urgent Sunny Lomax [facility] 1.2.840.11 [id number] Univers 12:40:00 13:01:19 Care Unknown, [facility] HEALTH [id number] ity of [place] [id number] [place] as ARABELLA?BLEA [id number] [facility] [address] MEDICAL OFFICE [facility] 2023-03-01 2023-03-01 Refill [facility] [id number] [id number] Univers 00:00:00 00:00:00 [facility] [id number] ity of [place] [id number] [place] as ARABELLA?BLEA [id number] [address] MEDICAL OFFICE BUILDING 2023-02-28 2023-02-28 Record Center Coordinator Lab, [facility] 1.2.840.1 [id number] Univers 11:30:00 11:45:00 Visit Joan Duke [facility] [id number] ity of [place] [id number] [place] as ARABELLA?BLEA [phone] [facility] [address] [facility] OFFICE [facility] 2023-02-28 2023-02-28 Outpatient R LEILANI [facility] [id number] Univers 11:30:00 11:30:00 JOAN DUKE [facility] 2023-02-25 2023-02-25 Outpatient R LEILANI [facility] [id number] Univers 11:40:00 11:40:00 [facility]23-[facility]-18 2023-02-18 Outpatient R LEILANI [facility] [id number] Univers 14:20:00 14:20:00 [facility] 2023-[facility]03 2023-02-03 [facility]ill [facility] [id number] [id number] Univers 00:00:00 00:00:00 [place] [facility] [id number] ity of [place] [id number] [place] as ARABELLA?BLEA [id number] [address] 2023-01-12 2023-01-12 [facility] 1.2.840.114 [id number] Univers 00:00:00 00:00:00 Secure Msg [facility] 350.1.13.10 ity of [place] 4.2.7.2.686 [place] ARABELLA?BLEA [id number] [address] OFFICE [facility] 2023-01-07 2023-01-07 Outpatient R [facility] [id number] Univers 14:00:00 14:00:00 [facility] 2023-01-03 Outpatient R LEILANI [facility] [id number] Univers 16:00:00 16:46:42 DEIONRAOUL DavisINE [facility] 2023-01-03 2023-01-03 Office [facility] 1.2.840.114 [id number] Univers 16:00:00 16:46:42 Visit [facility] 350.1.13.10 ity of [place] 4.2.7.2.686 [place] as ARABELLA?BLEA [id number] [address] OFFICE [facility] 2022-12-30 2022-12-30 Outpatient R LEILANI JOAN [facility] [id number] Univers 14:40:00 14:40:00 [facility] 2022-12-14 2022-12-14 [facility] 1.2.840.114 [id number] Univers 00:00:00 00:00:00 Joan HEALTH 350.1.13.10 ity of [place] 4.2.7.2.686 [place] as ARABELLA?BLEA [id number] [address] OFFICE [facility] 2022-11-25 2022-11-25 [facility] 1.2.840.114 [id number] Univers 00:00:00 00:00:00 [facility] 350.1.13.10 ity of [place] 4.2.7.2.686 [place] ARABELLA?BLEA [id number] [address] OFFICE [facility] 2022-11-18 2022-11-18 Office [facility] 1.2.840.114 [id number] Univers 14:20:00 14:40:00 Visit [facility] 350.1.13.10 ity of [place] 4.2.7.2.686 [place] as ARABELLA?BLEA [id number] [address] OFFICE [facility] 2022-11-18 2022-11-18 Outpatient R LEILANI [facility] [id number] Univers 14:20:00 14:20:00 [facility] 2022-11-18 2022-11-18 [facility] 1.2.840.114 [id number] Univers 00:00:00 00:00:00 [facility] 350.1.13.10 ity of [place] 4.2.7.2.686 [place] as ARABELLA?BLEA [id number] [address] OFFICE [facility] 2022-11-18 2022-11-18 Letter [facility] 1.2.840.114 [id number] Univers 00:00:00 00:00:00 (Out) [facility] 350.1.13.10 ity of [place] 4.2.7.2.686 [place] as ARABELLA?BLEA [id number] [address] MEDICAL OFFICE BUILDING 2022-10-11 2022-10-11 Telephone [facility] [id number] Univers 00:00:00 00:00:00 Joan HEALTH 350.1.13.10 ity of [place] 4.2.7.2.686 [place] as ARABELLA?BLEA [id number] [address] OFFICE [facility] 2022-10-10 2022-10-10 Refill [facility] 1.2.840.114 [id number] Univers 00:00:00 00:00:00 [facility] 350.1.13.10 [facility] 4.2.7.2.686 [place] as ARABELLA?BLEA [id number] [address] OFFICE [facility] 2022-09-29 2022-09-29 [facility] [id number] Univers 00:00:00 00:00:00 [facility] 350.1.13.10 ity of [place] 4.2.7.2.686 [place] as ARABELLA?BLEA [id number] [address] OFFICE [facility] 2022-09-28 2022-09-28 Outpatient R [facility] [id number] Univers 13:00:00 13:27:03 JOAN ity [facility] 2022-09-28 2022-09-28 Office [facility] 1.2.840.114 [id number] Univers 13:00:00 13:27:03 Visit [facility] 350.1.13.10 ity of [place] 4.2.7.2.686 [place] as ARABELLA?BLEA [id number] [address] MEDICAL OFFICE [facility] 2022-09-23 2022-09-23 Refill [facility] 1.2.840.114 [id number] Univers 00:00:00 00:00:00 Joan HEALTH 350.1.13.10 ity of [place] 4.2.7.2.686 [place] as ARABELLA?BLEA [id number] [address] OFFICE [facility] 2022-09-16 2022-09-16 Telephone [facility] [id number] Univers 00:00:00 00:00:00 Joan HEALTH 350.1.13.10 ity of [place] 4.2.7.2.686 [place] as ARABELLA?BLEA [id number] [address] OFFICE [facility] 2022-08-31 2022-08-31 [facility] [id number] Univers 00:00:00 00:00:00 [facility] 350.1.13.10 ity of [place] 4.2.7.2.686 [place] as ARABELLA?BLEA [id number] [address] OFFICE [facility] 2022-08-27 2022-08-27 [facility] [id number] Univers 13:40:00 14:05:20 JOAN ity of [facility] 2022-08-27 2022-08-27 Office [facility] 1.2.840.114 [id number] Univers 13:40:00 14:05:20 Visit [facility] 350.1.13.10 ity of [place] 4.2.7.2.686 [place] as ARABELLA?BLEA [id number] [address] OFFICE [facility] 2022-08-27 2022-08-27 Telephone [facility] [id number] Univers 00:00:00 00:00:00 Joan HEALTH 350.1.13.10 ity of [place] 4.2.7.2.686 [place] as ARABELLA?BLEA [id number] [address] OFFICE [facility] 2022-07-282022-07-28 Refzoe [facility] 1.2.840.114 [id number] Univers 00:00:00 00:00:00 Joan HEALTH 350.1.13.10 ity of [place] 4.2.7.2.686 [place] as ARABELLA?BLEA [id number] [address] MEDICAL OFFICE [facility] 2022-07-07 2022-07-07 [facility] [id number] Univers 13:00:00 13:29:34 ZEINAB ity of [facility] 2022-07-07 2022-07-07 Office [facility] 1.2.840.114 [id number] Univers 13:00:00 13:29:34 Visit Zeinab A HEALTH 350.1.13.10 i ty of [place] 4.2.7.2.686 [place] as ARABELLA?BLEA [id number] [address] OFFICE [facility] 2022-07-07 2022-07-07 Letter [facility] 1.2.840.114 [id number] Univers 00:00:00 00:00:00 (Out) Zeinab A HEALTH 350.1.13.10 i ty of [place] 4.2.7.2.686 [place] as ARABELLA?BLEA [id number] [address] OFFICE [facility] 2022-06-28 2022-06-28 Agnes [facility] 1.2.840.114 [id number] Univers 00:00:00 00:00:00 Joan HEALTH 350.1.13.10 ity of [place] 4.2.7.2.686 [place] as ARABELLA?BLEA [id number] [address] OFFICE [facility] 2022-06-28 2022-06-28 Agnes [facility] 1.2.840.114 [id number] Univers 00:00:00 00:00:00 Joan HEALTH 350.1.13.10 ity of [place] 4.2.7.2.686 [place] as ARABELLA?BLEA [id number] [address] OFFICE [facility] 2022-06-04 2022-06-04 Out[facility] [id number] Univers 15:40:00 15:40:00 [facility] 2022-06-04 2022-06-04 Out[facility] [id number] Univers 15:40:00 15:40:00 [facility] 2022-06-03 2022-06-03 Out[facility] [id number] Univers 15:40:00 16:11:09 [facility] 2022-06-03 2022-06-03 Office [facility] 1.2.840.114 [id number] Univers 15:40:00 16:11:09 Visit [facility] 350.1.13.10 ity of [place] 4.2.7.2.686 [place] as ARABELLA?BLEA [id number] [address] MEDICAL OFFICE BUILDING 2022-06-03 2022-06-03 Outpatient [facility] [id number] Univers 15:40:00 15:40:00 [facility] 2022-06-03 2022-06-03 Outpatient [facility] [id number] Univers 14:20:00 14:20:00 [facility] 2022-06-03 2022-06-03 Orders Doctor SANTORO 1.2.840.114 [id number] Univers 00:00:00 00:00:00 Only Unassigned, KELLY 350.1.13.10 ity of [place] [facility] 4.2.7.2.686 [place] as [id number] [address] 2022-06-03 2022-06-03 Letter [facility] 1.2.840.114 [id number] Univers 00:00:00 00:00:00 (Out) [facility] 350.1.13.10 ity of [place] 4.2.7.2.686 [place] ARABELLA?BLEA [id number] [place] dic[address] MEDICAL OFFICE BUILDING 2022-05-06 2022-05-06 Outpatient [facility] [id number] Univers 15:40:00 16:32:35 [facility] 2022-05-06 2022-05-06 Office [facility] 1.2.840.114 [id number] Univers 15:40:00 16:32:35 Visit [facility] 350.1.13.10 ity of [place] 4.2.7.2.686 [place] as ARABELLA?BLEA [id number] [facility] [address] MEDICAL OFFICE [facility] 2022-05-06 2022-05-06 Outpatient [facility] [id number] Univers 15:40:00 16:32:35 [facility] 2022-05-05 2022-05-05 Urgent [facility] 1.2.840.114 [id number] Univers 16:00:00 16:20:00 Care [facility] 350.1.13.10 it y of [place] 4.2.7.2.686 [place] as ARABELLA?BLEA [id number] Mn ar[address] MEDICAL OFFICE [facility] 2022-05-05 2022-05-05 Outpatient R ROSA [facility] [id number] Univers 16:00:00 16:00:00 [facility] 2022-05-05 2022-05-05 Orders Doctor YVAN 1.2.840.114 [id number] Univers 00:00:00 00:00:00 Only Unassigned, KELLY 350.1.13.10 ity of [place] [facility] 4.2.7.2.686 [place] as [id number] [address] Results This patient has no known results.
[2023-06-26 19:57] LABS: Absolute Lymphocytes (CBC) 1.9 K/uL (0.7-4.9); Hematocrit 40.5 % (36.0-45.0); Lymphocytes % 27.9 % (15.3-44.8); MCV 94.8 fL (80-100); MPV 7.2 fL (7.6-11.3); Platelets 331 thou/uL (152-406); RBC Red Blood Cell Count 4.27 M/uL (3.86-4.86)
[2023-06-26 20:18] LABS: Potassium 4.1 mEq/L (3.5-5.1)
[2023-06-26] MEDS ORDERED: MORPHINE 4 MG/ML SYR ONE (20:43)
[2023-06-26] MEDS ORDERED: ONDANSETRON 4 MG/2 ML VIAL ONE (20:44)
--- NOTE | 2023-06-26 20:51 | RAD REPORT ---
EXAM DESCRIPTION: CTAbdomen Pelvis W Contrast - 06/26/2023 8:41 pm CLINICAL HISTORY: ABD PAIN COMPARISON: Abdomen Pelvis W Contrast dated 03/23/2018 TECHNIQUE: CT of the abdomen and pelvis was performed. All CT scans are performed using dose optimization technique as appropriate and may include automated exposure control or mA/KV adjustment according to patient size. FINDINGS: Lower chest: No acute abnormality. Liver: No acute abnormality or suspicious lesions. Biliary: No biliary ductal dilatation. Cholelithiasis. Stomach: No significant focal abnormality. Duodenum: No significant focal abnormality. Pancreas: No significant abnormality. Spleen: No significant abnormality. Adrenal: No suspicious lesions. Kidney/ureter: No hydronephrosis. Small nonobstructing renal calculi bilaterally. Too small to charac terize and/or benign appearing renal lesions are noted. Retroperitoneum: Reactive sized retroperitoneal lymph nodes. Vascular: No aneurysm. Bowel: Normal appendix. Moderate stool.. Peritoneum: No ascites or free air. Bladder: Grossly unremarkable. Reproductive: No adnexal masses. Bones: No acute fracture. Other: n/a IMPRESSION: No acute intra-abdominal or pelvic finding.
--- NOTE | 2023-06-26 21:47 | RAD REPORT ---
EXAM DESCRIPTION: US - Pelvis Complete - 06/26/2023 9:33 pm CLINICAL HISTORY: VAGINAL BLEEDING Pelvic pain. COMPARISON: Abdomen Pelvis W Contrast dated 06/26/2023 FINDINGS: Sub endometrial fibroid noted measuring 2.5 x 1.6 cm. The uterus measures 8.1 cm The endometrial stripe measures 11 mm, within normal limits Both ovaries are normal in size, shape and echotexture. The right ovary measures 2.9 x 1.8 x 1.9 cm with volume of 4.9 cc. The left ovary measures 2.7 x 1.4 x 1.6 cm with volume of 3.2 cc. No ovarian or parovarian lesions. No adnexal masses. Normal Doppler blood flow was demonstrated to both ovaries. No significant pelvic ascites. IMPRESSION: Small uterine fibroid. Bilateral ovarian blood flow.
[2023-06-26] MEDS ORDERED: TRANEXAMIC ACID 1,000 MG/10 ML VIAL IV ONE (22:14)
[2023-06-26] MEDS ORDERED: NA CHLORIDE 0.9% 1,000 ML ONE (22:22)
--- NOTE | 2023-06-26 22:24 | ER ---
Nurse's Notes [facility] Name: Jyoti Amado Age: 38 yrs Sex: Female : 1985 Arrival Date: 06/26/2023 Time: 19:03 Bed 7 Private MD: Diagnosis: Abnormal uterine and vaginal bleeding, unspecified Presentation: 06/26 19:27 Chief complaint: Patient states: heavy vaginal bleeding and cramping for months. as6 Coronavirus screen: At this time, the client does not indicate any symptoms associated with coronavirus-19. Ebola Screen: No symptoms or risks identified at this time. Initial Sepsis Screen: Does the patient meet any 2 criteria? No. Patient's initial sepsis screen is negative. Does the patient have a suspected source of infection? No. Patient's initial sepsis screen is negative. Risk Assessment: Do you want to hurt yourself or someone else? Patient reports no desire to harm self or others. Onset of symptoms is unknown. 19:27 Acuity: GABO 3 as6 19:27 Method Of Arrival: Ambulatory as6 Triage Assessment: 19:30 General: Appears distressed, Behavior is cooperative, appropriate for age, anxious. bp Pain: Complains of pain in pelvis. : Reports vaginal bleeding that is with clots. 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 - Social history:: Smoking status: Patient reports the use of cigarette tobacco products, smokes one-half pack cigarettes per day. Screenin:00 [facility] ED Fall Risk Assessment (Adult) History of falling in the last 3 months, bp including since admission No falls in past 3 months (0 pts). Abuse screen: Denies threats or abuse. Denies injuries from another. Nutritional screening: No deficits noted. Tuberculosis screening: No symptoms or risk factors identified. Assessment: 19:30 General: SEE TRIAGE NOTE. bp 20:47 Reassessment: PT RETURNED FROM CT. bp 21:54 : Blood noted. bp 22:28 Reassessment: DC ON HOLD FOR IVF. bp Vital Signs: 19:26 BP 125 / 84; Pulse 77; Resp 18 S; Temp 98.6(O); Pulse Ox 99% on R/A; Weight 63.5 kg as6 (R); Height 5 ft. 0 in. (R); Pain 10/10; 21:53 BP 114 / 59; Pulse 73; Resp 16; Pulse Ox 100% ; bp 23:52 BP 102 / 77; Pulse 68; Resp 16; Pulse Ox 100% ; bp 19:26 Body Mass Index 27.34 (63.50 kg, 152.4 cm) as6 19:26 Pain Scale: Adult as6 ED Course: 19:09 Patient arrived in ED. gm2 19:20 Yesenia Peace [facility]C [facility] sb4 19:20 Fly Rizo MD is Attending Physician. sb4 19:24 Bandar Posada, ELIJAH is Primary Nurse. bp 19:26 Arm band placed on. as6 19:28 Triage completed. as6 19:48 Inserted saline lock: 22 gauge in right antecubital area, using aseptic technique. oe Blood collected. 20:43 CT Abd/Pelvis - IV Contrast Only In Process Unspecified. EDMS 21:00 Patient has correct armband on for positive identification. Bed in low position. Call bp light in reach. Side rails up X2. 21:34 Pelvis Complete In Process Unspecified. EDMS 22:22 Ewa Germain MD is Referral Physician. sb4 23:52 Provided Education on: NA. bp 23:52 No provider procedures requiring assistance completed. IV discontinued, intact, bp bleeding controlled, No redness/swelling at site. Pressure dressing applied. Administered Medications: 20:47 Drug: morphine IVP or IV 4 mg IVP once over 4 mins Route: IVP; Infused Over: 4 mins; bp Site: right antecubital; 22:06 Follow up: Response: No adverse reaction bp 20:47 Drug: Ondansetron IVP 4 mg IVP once; over 2 minutes Route: IVP; Site: right antecubital;bp 22:06 Follow up: Response: No adverse reaction bp 22:05 Drug: tranexamic acid 1300 mg PO once {Note: GIVEN 1GM IVP PER LMP.} Route: PO; bp 23:54 Follow up: Response: No adverse reaction bp 22:14 Drug: NS 0.9% IV 1000 ml IV at 1 bolus Per protocol; 1000 mL bolus Route: IV; Rate: 1 bp bolus; Site: right antecubital; 23:53 Follow up: IV Status: Completed infusion; IV Intake: 1000ml bp Medication: 23:52 VIS not applicable for this client. bp Intake: 23:53 IV: 1000ml; Total: 1000ml. bp Outcome: 22:23 Discharge ordered by MD. shepherd 23:52 Discharged to home ambulatory, bp 23:52 Condition: stable 23:52 Discharge instructions given to patient, Instructed on discharge instructions, follow up and referral plans. medication usage, Demonstrated understanding of instructions, follow-up care, medications, Prescriptions given X 2, 23:54 Patient left the ED. bp Signatures: Dispatcher [employer] EDMS Donny Escobedo Brian, RN RN bp Julio Cesar Zepeda RN RN asYesenia Hawk, PA-C PA-Chris brown4 Jeannie Boggs 2 Corrections: (The following items were deleted from the chart) 22:05 22:05 tranexamic acid 1300 mg PO bp bp
--- NOTE | 2023-06-26 22:24 | EDPHYS ---
Physician Documentation [facility] Name: Jyoti Amado Age: 38 yrs Sex: Female : 1985 Arrival Date: 06/26/2023 Time: 19:03 Bed 7 Private MD: ARTHUR Physician Fly Rizo HPI: 06/26 20:02 This 38 yrs old Female presents to ER via Ambulatory with complaints of Vaginal sb4 Bleeding, Abdominal Pain. 20:02 The patient presents with vaginal bleeding that is heavy. Onset: The symptoms/episode sb4 began/occurred 2 month(s) ago. Modifying factors: The symptoms are alleviated by nothing, the symptoms are aggravated by nothing. Associated signs and symptoms:. The patient's method of control includes nothing. The patient has not experienced similar symptoms in the past. The patient has not recently seen a physician. patient reports heavy vaginal bleeding x 2 months and lower abdominal cramping. she states she has a history of regular periods. no major gynecologic history except for 2 vaginal deliveries and a tubal ligation. no trauma to the area . 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 - Social history:: Smoking status: Patient reports the use of cigarette tobacco products, smokes one-half pack cigarettes per day. ROS: 20:02 Positive for vaginal bleeding, sb4 20:02 Eyes: Negative for injury, pain, redness, and discharge, ENT: Negative for injury, pain, and discharge, Neck: Negative for injury, pain, and swelling, Cardiovascular: Negative for chest pain, palpitations, and edema, Respiratory: Negative for shortness of breath, cough, wheezing, and pleuritic chest pain, 20:02 Abdomen/GI: Positive for abdominal pain, 20:02 All other systems are negative, Exam: 20:02 Constitutional: This is a well developed, well nourished patient who is awake, alert, sb4 and in no acute distress. Head/Face: Normocephalic, atraumatic. Eyes: Extra-ocular motions intact. Periorbital areas with no swelling, redness, or edema. ENT: Mucous membranes moist. Cardiovascular: Regular rate and rhythm with a normal S1 and S2. Respiratory: Lungs have equal breath sounds bilaterally, clear to auscultation and percussion. No rales, rhonchi or wheezes noted. No increased work of breathing, no retractions or nasal flaring. Abdomen/GI: Soft, non-tender, no distension. Skin: Warm, dry with normal turgor. Normal color with no rashes, no lesions, and no evidence of cellulitis. MS/ Extremity: Pulses equal, no cyanosis. Neurovascular intact. Full, normal range of motion. Neuro: Awake and alert, GCS 15, oriented to person, place, time, and situation. Motor strength 5/5 in all extremities. Sensory grossly intact. Vital Signs: 19:26 BP 125 / 84; Pulse 77; Resp 18 S; Temp 98.6(O); Pulse Ox 99% on R/A; Weight 63.5 kg as6 (R); Height 5 ft. 0 in. (R); Pain 10/10; 21:53 BP 114 / 59; Pulse 73; Resp 16; Pulse Ox 100% ; bp 23:52 BP 102 / 77; Pulse 68; Resp 16; Pulse Ox 100% ; bp 19:26 Body Mass Index 27.34 (63.50 kg, 152.4 cm) as6 19:26 Pain Scale: Adult as6 MDM: 19:21 Patient medically screened. sb4 20:02 Differential diagnosis: dysmenorrhea, menometrorrhagia, molar preganancy, ovarian cyst, sb4 pelvic inflammatory disease, ruptured ectopic , uterine fibroids. 22:21 Data reviewed: vital signs, nurses notes, lab test result(s), radiologic studies, and sb4 as a result, I will discharge patient. Consideration of Admission/Observation Escalation of care including admission/observation considered. Counseling: I had a detailed discussion with the patient and/or guardian regarding the historical points, exam findings, and any diagnostic results supporting the discharge/admit diagnosis, lab results, radiology results, the need for outpatient follow up, an OB/Gyne specialist, to return to the emergency department if symptoms worsen or persist or if there are any questions or concerns that arise at home. 06/26 19:32 Order name: Abo/rh Typing; Complete Time: 20:11 sb4 06/26 19:32 Order name: Basic Metabolic Panel; Complete Time: 20:21 sb4 06/26 19:32 Order name: CBC with Diff; Complete Time: 20:00 sb4 06/26 19:33 Order name: CT Abd/Pelvis - IV Contrast Only; Complete Time: 21:02 sb4 06/26 21:34 Order name: Pelvis Complete; Complete Time: 21:47 EDMS 06/26 19:32 Order name: IV Saline Lock; Complete Time: 19:51 sb4 06/26 19:32 Order name: Labs collected and sent; Complete Time: 19:51 sb4 Administered Medications: 20:47 Drug: morphine IVP or IV 4 mg IVP once over 4 mins Route: IVP; Infused Over: 4 mins; bp Site: right antecubital; 22:06 Follow up: Response: No adverse reaction bp 20:47 Drug: Ondansetron IVP 4 mg IVP once; over 2 minutes Route: IVP; Site: right antecubital;bp 22:06 Follow up: Response: No adverse reaction bp 22:05 Drug: tranexamic acid 1300 mg PO once {Note: GIVEN 1GM IVP PER LMP.} Route: PO; bp 23:54 Follow up: Response: No adverse reaction bp 22:14 Drug: NS 0.9% IV 1000 ml IV at 1 bolus Per protocol; 1000 mL bolus Route: IV; Rate: 1 bp bolus; Site: right antecubital; 23:53 Follow up: IV Status: Completed infusion; IV Intake: 1000ml bp Disposition Summary: 06/26/23 22:23 Discharge Ordered Notes: Location: Home sb4 Problem: an ongoing problem sb4 Symptoms: have improved sb4 Condition: Stable sb4 Diagnosis - Abnormal uterine and vaginal bleeding, unspecified sb4 Followup: sb4 - With: Ewa Germain MD - When: 2 - 3 days - Reason: Further diagnostic work-up, Recheck today's complaints, Re-evaluation by your physician Discharge Instructions: - Discharge Summary Sheet sb4 - Abnormal Uterine Bleeding, [id number] sb4 Forms: - Work release form sb4 - Medication Reconciliation Form sb4 - Thank You Letter sb4 - Antibiotic Education sb4 - Prescription Opioid Use sb4 - Patient Portal Instructions sb4 - Leadership Thank You Letter sb4 Prescriptions: - Provera 10 mg Oral tablet - take 1 tablet ORAL route daily for 10 days; 10 tablet; Refills: 0, Product sb4 Selection Permitted - Tramadol 50 mg Oral Tablet - take 1 tablet ORAL route every 8 hours as needed; 12 tablet; Refills: 0, sb4 Product Selection Permitted Signatures: Dispatcher [employer] Bandar Tillman, RN RN Julio Cesar Reilly RN RN as6 Yesenia Peace PA-C PA-C sb4 Corrections: (The following items were deleted from the chart) 21:34 21:03 Transvaginal Study (Probe)+[id number].RAD.[email or web address] ordered. EDRI EDMS
[2023-06-26 23:59] VITALS: TEMP 98.6
[2023-06-27 00:21] VITALS: BP 102/77; O2SAT 100
== END 2023-06-26 23:54 | disposition home or self-care (01) ==
LOC: ER 19:03
DX: N93.9 Abnormal uterine and vaginal bleeding, unspecified (principal); F17.210 Nicotine dependence, cigarettes, uncomplicated
CPT/HCPCS: 36415; 74177; 76856; 80048; 85025; 86900; 86901; 96361; 96374; 96375; 99284; J2405; J7030; Q9967

== ENCOUNTER 2024-10-19 15:52 | Emergency (ER) | payer OTHER, SELFPAY ==
--- OUTSIDE RECORDS SUMMARY | 2024-10-19 15:55 | XMS REPORT | Continuity of Care Document ---
Author Name Unknown Address [address] [facility] [address] [place] [address] [facility] Address [address] [facility] [address] [place] [address] Care Team Providers Care Technology Applications Consultant Name Role Phone Joan Duke MD Primary Care Physician [phone] JOAN DUKE Attending Clinician Unavailable JOAN DUKE Attending Clinician Unavailable Joan Duke MD Attending Clinician [phone] ZEINAB HEMPHILL Attending Clinician Unavailable Ingris MCGRAW, Mayr Jo Bolden Attending Clinician Axel Contreras MD Attending Clinician + [phone] Zeinab Feliciano Attending Clinician [phone] Doctor Unassigned, [place] Attending Clinician U navailable SUNNY SOLIS Attending Clinician Unavailable Sunny Graff Attending Clinician [phone] Unknown, Attending Attending Clinician Unavailab abel Alejandre Ang - Jong Attending Clinician Unavailable AXEL CONTRERAS Attending Clinician UnaMakayla Yee Attending Clinician [phone] MAKAYLA CLINE Attending Clinician Unavailable Payers Payer Name Policy Type Policy Number Effective Date Expirati on Date Source [place] [facility] [id number] 2022 00:00:00 Problems Condition Name Condition Details Condition Category Status Onset Date Resolution Date Last Treatment Date Treating Clinician Comments Source ADHD (attention deficit hyperactiv ity disorder) ADHD (attention deficit hyperactiv ity disorder) Disease Active [facility] Controlled substance agreement signed Controlled substance agreement signed Disease Active [facility] Allergies, Adverse Reactions, Alerts Allergy Name Allergy Type Status Severity Reaction(s) Onset Date Inactive Date Treating Clinician Comments Source DEXMETHY LPHENIDA TE DRUG INGREDI Active Other-Cmnt 01-18 00:00: 00 [facility] Dexmethy lphenida te Propensi ty to adverse reaction s Active Other - See comments 01-18 00:00: 00 Depressio n [facility] NO KNOWN ALLERGIE S Drug Class Active [facility] Social History Social Habit Start Date Stop Date Quantity Comments Source History SDOH Alcohol Frequency [facility] History SDOH Alcohol Std Drinks [facility] History SDOH Alcohol Binge [facility] History of tobacco use Cigarette Smoker [facility] Alcohol intake 2023-10-12 00:00:00 2023-10-12 00:00:00 Current drinker of alcohol (finding) [facility] Alcoholic beverage intake 2023-10-12 00:00:00 2023-10-12 00:00:00 Current drinker of alcohol (finding) [facility] History of Social function 2023-04-28 00:00:00 2023-04-28 00:00:00 [facility] Exposure to SARS-CoV-2 (event) 2023-03-16 00:00:00 2023-03-26 10:20:[address] [facility] Cigarettes smoked current (pack per day) - Reported 2022-05-05 00:00:00 2022-05-05 00:00:00 [facility] Cigarette pack-years 2022-05-05 00:00:00 2022-05-05 00:00:00 [facility] Tobacco use and exposure 2022-05-05 00:00:00 2022-05-05 00:00:00 Smokeless tobacco non-user [facility] Alcohol Comment 2017-12-26 00:00:00 2017-12-26 00:00:00 [facility] Sex assigned at 1985 00:00:00 1985 00:00:00 [facility] Smoking Status Start Date Stop Date Source Smokes tobacco daily 2022-05-05 00:00:00 [facility] Medications Ordered Medication Name Filled Medication Name Start Date Stop Date Current Medication? Ordering Clinician Indication Dosage Frequency Signature (SIG) Comments Components Source dextroamphe tamine-amph etamine (ADDERALL) 30 mg tablet 09-26 00:00: 00 Yes [id number] 30mg Take 1 tablet by mouth every morning and at 1200 (noon). [facility] dextroamphe tamine-amph etamine (ADDERALL) 30 mg tablet 2023-09- 00:00: 00 09-26 00:00 :00 No [id number] 30mg Take 1 tablet by mouth every morning and at 1200 (noon). [facility] dextroamphe tamine-amph etamine (ADDERALL) 30 mg tablet 2023-09 00:00: 00 08-20 00:00 :00 No [id number] 30mg Take 1 tablet by mouth every morning and at 1200 (noon). [facility] dextroamphe tamine-amph etamine (ADDERALL) 30 mg tablet 2023-09 0-15 00:00: 00 08-01 00:00 :00 No [id number] 30mg Take 1 tablet by mouth every morning and at 1200 (noon). [facility] dextroamphe tamine-amph etamine (ADDERALL) 30 mg tablet 18 00:00: 00 07-03 00:00 :00 No [id number] 30mg Take 1 tablet by mouth every morning and at 1200 (noon). [facility] dextroamphe tamine-amph etamine (ADDERALL) 30 mg tablet 17 00:00: 00 06-06 00:00 :00 No [id number] 30mg Take 1 tablet by mouth every morning and at 1200 (noon). [facility] dextroamphe tamine-amph etamine (ADDERALL) 30 mg tablet 2023-0 8-19 00:00: 00 06-03 00:00 :00 No [id number] 30mg Take 1 tablet by mouth every morning and at 1200 (noon). [facility] AMLODIPINE 5 mg tablet 0 8-05 00:00: 00 Yes [id number] TAKE ONE (1) TABLET(S) BY MOUTH IN THE MORNING. [facility] dextroamphe tamine-amph etamine (ADDERALL) 30 mg tablet 0 7-19 00:00: 00 05-04 00:00 :00 No [id number] 30mg Take 1 tablet by mouth every morning and at 1200 (noon). [facility] dextroamphe tamine-amph etamine (ADDERALL) 30 mg tablet 0 6-27 00:00: 00 04-06 00:00 :00 No [id number] 30mg Take 1 tablet by mouth every morning and at 1200 (noon). [facility] dextroamphe tamine-amph etamine (ADDERALL) 30 mg tablet 0 5-30 00:00: 00 03-15 00:00 :00 No [id number] 30mg Take 1 tablet by mouth every morning and at 1200 (noon). [facility] amLODIPine 5 mg tablet 0 5-02 00:00: 00 04-23 00:00 :00 No [id number] 5mg Take 1 tablet by mouth in the morning. [facility] dextroamphe tamine-amph etamine (ADDERALL) 30 mg tablet 0 5-02 00:00: 00 02-14 00:00 :00 No [id number] 30mg Take 1 tablet by mouth every morning and at 1200 (noon). [facility] dexmethylph enidate (FOCALIN XR) 15 mg 24 hr capsule 2023-0 4-10 00:00: 00 05 00:00 :00 No [id number] 15mg Take 1 capsule by mouth every morning and at 1200 (noon). [facility] dexmethylph enidate (FOCALIN XR) 15 mg 24 hr capsule 2023-0 4-08 00:00: 00 12-27 00:00 :00 No [id number] 15mg Take 1 capsule by mouth every morning and at 1200 (noon). [facility] dexmethylph enidate (FOCALIN XR) 15 mg 24 hr capsule 0 3-18 00:00: 00 12-21 00:00 :00 No [id number] 15mg Take 1 capsule by mouth every morning and at 1200 (noon). [facility] dexmethylph enidate (FOCALIN XR) 15 mg 24 hr capsule 0 3-07 00:00: 00 12-04 00:00 :00 No [id number] 15mg Take 1 capsule by mouth every morning and at 1200 (noon). [facility] dexmethylph enidate (FOCALIN XR) 15 mg 24 hr capsule 2-10 00:00: 00 11-23 00:00 :00 No [id number] 15mg Take 1 capsule by mouth every morning and at 1200 (noon). [facility] dexmethylph enidate (FOCALIN XR) 15 mg 24 hr capsule 2-08 00:00: 00 10-29 00:00 :00 No [id number] 15mg Take 1 capsule by mouth every morning and at 1200 (noon). [facility] dexmethylph enidate (FOCALIN XR) 15 mg 24 hr capsule 2-05 00:00: 00 10-27 00:00 :00 No [id number] 15mg Take 1 capsule by mouth every morning and at 1200 (noon). [facility] promethazin e-dextromet horphan 6.25-15 mg/5 mL syrup 1-24 00:00: 00 01-18 00:00 :00 No [id number] 5mL Take 5 mL by mouth 4 (four) times daily as needed for Cough. [facility] fluticasone propionate 50 mcg/actuati on nasal spray 1-24 00:00: 01-18 00:00 :00 No [id number] 2{spray } Use 2 Sprays in each nostril in the morning. [facility] azithromyci n 250 mg tablet 10-12 00:00: 00 01-18 00:00 :00 No [id number] Take 500 mg PO day 1, then 250 mg PO days 2 to 5 [facility] dexmethylph enidate (FOCALIN XR) 15 mg 24 hr capsule 09-29 00:00: 00 10-24 00:00 :00 No [id number] 15mg Take 1 capsule by mouth every morning and at 1200 (noon). [facility] dexmethylph enidate (FOCALIN XR) 15 mg 24 hr capsule 09-27 00:00: 00 Yes [id number] 15mg Take 1 capsule by mouth every morning and at 1200 (noon). [facility] dexmethylph enidate (FOCALIN XR) 15 mg 24 hr capsule 2022-09 00:00: 00 09-27 00:00 :00 No [id number] 15mg Take 1-2 capsules by mouth in the morning. [facility] dexmethylph enidate (FOCALIN) 5 mg tablet 2022-09 00:00: 00 09-16 00:00 :00 No [id number] 5mg Take 1-2 tablets by mouth in the morning and 1-2 tablets in the evening. [facility] dextroamphe tamine-amph etamine (ADDERALL) 30 mg tablet 2022-09 00:00: 00 09-16 00:00 :00 No [id number] 30mg Take 1 tablet by mouth every morning and at 1200 (noon). [facility] dextroamphe tamine-amph etamine (ADDERALL) 30 mg tablet 2022-09 2 00:00: 00 09-15 00:00 :00 No [id number] 30mg Take 1 tablet by mouth every morning and at 1200 (noon). [facility] dextroamphe tamine-amph etamine 30 mg tablet 20211-17 00:00: 00 09-02 00:00 :00 No [id number] 30mg Take 1 tablet by mouth every morning and at 1200 (noon). [facility] dextroamphe tamine-amph etamine 30 mg tablet 2022-09 00:00: 00 Yes [id number] 30mg Take 1 tablet by mouth every morning and at 1200 (noon). [facility] dextroamphe tamine-amph etamine 30 mg tablet 2022-09 00:00: 00 07-26 00:00 :00 No [id number] 30mg Take 1 tablet by mouth every morning and at 1200 (noon). [facility] dextroamphe tamine-amph etamine 30 mg tablet 06-02 00:00: 00 Yes [id number] 30mg Take 1 tablet by mouth every morning and at 1200 (noon). [facility] triamcinolo ne acetonide (KENALOG) injection 20 mg 05-13 21:00: 00 05-13 20:03 :00 No [id number] 9100 20mg [facility] cyclobenzap rine 10 mg tablet 05-13 00:00: 00 10-12 00:00 :00 No [id number] 9100 10mg Take 1 tablet by mouth 3 (three) times daily as needed for Muscle Spasms (May make sleepy, do not use before driving). [facility] predniSONE 10 mg tablet 05-09 00:00: 00 10-12 00:00 :00 No [id number] 9100 Take three tablets daily for three days, take two tablets daily for three days, take one tablet daily for three days [facility] dexmethylph enidate 5 mg tablet 05-09 00:00: 00 06-02 00:00 :00 No [id number] 5mg Take 1 tablet by mouth every morning and at 1200 (noon). [facility] ibuprofen 600 mg tablet 04-28 00:00: 00 10-12 00:00 :00 No [id number] 600mg Take 1 tablet by mouth every 6 (six) hours as needed for Pain (scale 4-6). [facility] dexmethylph enidate 2.5 mg tablet 8-10 00:00: 00 05-09 00:00 :00 No [id number] 2.5mg Take 1 tablet by mouth every morning and at 1200 (noon). [facility] dextroamphe tamine-amph etamine 30 mg tablet 03-31 00:00: 00 04-28 00:00 :00 No [id number] 30mg Take 1 tablet by mouth every morning and at 1200 (noon). [facility] methylPREDN ISolone (MEDROL, KETURAH,) 4 mg tablets 03-26 00:00: 00 05-09 00:00 :00 No [id number] follow package directions [facility] cephALEXin 500 mg capsule 03-26 00:00: 00 04-01 04:59 :00 No [id number] 500mg Take 1 capsule by mouth 4 (four) times daily for 5 days. [facility] acetaminoph en-codeine (TYLENOL-CO DEINE #3) 300-30 mg tablet 03-26 00:00: 00 03-29 04:59 :00 No [id number] 1{tbl} Take 1 tablet by mouth every 6 (six) hours as needed for Pain (scale 7-10) for up to 2 days. Indication s: acute pain [facility] dextroamphe tamine-amph etamine 30 mg tablet 03-01 00:00: 00 03-30 00:00 :00 No [id number] 30mg Take 1 tablet by mouth every morning and at 1200 (noon). [facility] dextroamphe tamine-amph etamine 30 mg tablet 5-18 00:00: 00 03-01 00:00 :00 No [id number] 30mg Take 1 tablet by mouth every morning and at 1200 (noon). [facility] methylpheni date HCl 20 mg tablet 01-13 00:00: 00 02-03 00:00 :00 No [id number] 20mg Take 1 tablet by mouth in the morning and 1 tablet in the evening. [facility] azelastine 137 mcg (0.1 %) nasal spray 01-03 00:00: 00 10-12 00:00 :00 No [id number] 1{spray } Use 1 [place] in each nostril 2 (two) times daily as needed. Use in each nostril as directed [facility] methylpheni date HCl 20 mg tablet 01-03 00:00: 00 01-13 00:00 :00 No [id number] 20mg Take 1 tablet by mouth in the morning and 1 tablet in the evening. [facility] dextroamphe tamine-amph etamine 30 mg tablet 12-16 00:00: 00 01-03 00:00 :00 No [id number] 30mg Take 1 tablet by mouth every morning and at 1200 (noon). [facility] azithromyci n 250 mg tablet 11-25 00:00: 00 03-26 00:00 :00 No [id number] Take two tablets my mouth today followed by one tablet daily for a total for 5 days [facility] inhalat.spa cing dev,large mask (BREATHERIT E SPACER-MASK ,ADULT) [facility] 00:[facility]: 00 Yes [id number] 1{each} 1 Each every 6 (six) hours as needed for Other (Shortness of breath; use as directed with inhaler). May substitute [facility] albuterol 90 mcg/actuati on inhaler 3 00:00: 00 10-12 00:00 :00 No [id number] 2{puff} Inhale 2 Puffs every 6 (six) hours as needed for Wheezing or Shortness of Breath. [facility] inhalat.spa cing dev,large mask (BREATHERIT E SPACER-MASK ,ADULT) [facility]- 00:00: 00 10-12 00:00 :00 No [id number] 1{each} 1 Each every 6 (six) hours as needed for Other (Shortness of breath; use as directed with inhaler). May substitute [facility] bromphenira mine-pseudo ephedrine-D M (BROMFED DM) 2-30-10 mg/5 mL syrup 3-02 00:00: 00 03-26 00:00 :00 No [id number] 10mL Take 10 mL by mouth 4 (four) times daily as needed for Congestion /Allergies . [facility] dextroamphe tamine-amph etamine 30 mg tablet 3- 00:00: 00 12-14 00:00 :00 No [id number] 30mg Take 1 tablet by mouth every morning and at 1200 (noon). [facility] amphetamine -dextroamph etamine 15 mg 24 hr capsule 2- 00:00: 00 11-18 00:00 :00 No [id number] 30mg Take 2 capsules by mouth every morning. [facility] amphetamine -dextroamph etamine 15 mg 24 hr capsule 1-24 00:00: 00 Yes [id number] 15mg Take 1 capsule by mouth every morning. May increase to two capsule daily if no improvemen t [facility] amphetamine sulfate (EVEKEO) 10 mg Tab 1-20 00:00: 00 10-12 00:00 :00 No [id number] 20mg Take 20 mg by mouth every morning and at 1200 (noon). [facility] amphetamine sulfate (EVEKEO) 10 mg Tab 0 1-10 00:00: 00 10-08 00:00 :00 No [id number] 10mg Take 10 mg by mouth every morning and at 1200 (noon). [facility] dextroamphe tamine-amph etamine (ADDERALL) 7.5 mg tablet 2021-09 2-30 00:00: 00 09-28 00:00 :00 No [id number] 15mg Take 2 tablets by mouth every morning and at 1200 (noon). [facility] dextroamphe tamine sulfate 15 mg 24 hr capsule 2021-09- 00:00: 00 09-17 00:00 :00 No [id number] 15mg Take 1 capsule by mouth in the morning. [facility] dextroamphe tamine-amph etamine 30 mg tablet 2021-09- 00:00: 00 08-27 00:00 :00 No [id number] TAKE ONE (1) TABLET(S) BY MOUTH EVERY MORNING AND AT NOON. [facility] dextroamphe tamine-amph etamine 30 mg tablet 2021-09 00:00: 00 08-27 00:00 :00 No [id number] TAKE ONE (1) TABLET(S) BY MOUTH EVERY MORNING AND AT NOON. [facility] methylPREDN ISolone acetate (DEPO-MEDRO L) injection 80 mg 2021-09 19:00: 00 07-07 18:34 :00 No [id number] 80mg 80 mg, Intramuscu lar, ONCE, 1 dose, On Tue07/07/22 at 1400, Routine [facility] azelastine 137 mcg (0.1 %) nasal spray 2021-09 00:00: 00 01-03 00:00 :00 No [id number] 1{spray } Use 1 [place] in each nostril in the morning and 1 [place] in the evening. Use in each nostril as directed [facility] benzonatate (TESSALON PERLES) 100 mg capsule 2021-09 00:00: 00 08-27 00:00 :00 No [id number] 100mg Take 1 capsule by mouth 3 (three) times daily as needed for Cough. [facility] DEXTROAMPHE TAMINE-AMPH ETAMINE 30 mg tablet 2021-09- 00:00: 00 07-28 00:00 :00 No [id number] TAKE ONE (1) TABLET(S) BY MOUTH EVERY MORNING AND AT NOON. [facility] dextroamphe tamine-amph etamine (ADDERALL) 30 mg tablet 9-15 00:00: 06-29 00:00 :00 No [id number] 30mg Take 1 tablet by mouth every morning and at 1200 (noon). [facility] dextroamphlacie tamine-amph etamine (ADDERALL) 30 mg tablet 05-06 00:00: 00 06-03 00:00 :00 No [id number] 30mg Take 1 tablet by mouth in the morning. [facility] Vital Signs Vital Name Observation Time Observation Value Comments S serafinluis Systolic blood pressure 2024-01-19 19:14:00 160 mm[Hg] [facility] Diastolic blood pressure 2024-01-19 19:14:00 80 mm[Hg] [facility] Heart rate 2024-01-19 19:12:00 60 /min [facility] Body height 2024-01-19 19:12:00 154.9 cm [facility] Body weight 2024-01-19 19:12:00 62.823 kg [facility] BMI 2024-01-19 19:12:00 26.17 kg/m2 [facility] Systolic blood pressure 2023-10-12 19:27:00 114 mm[Hg] [facility] Diastolic blood pressure 2023-10-12 19:27:00 72 mm[Hg] [facility] Heart rate 2023-10-12 19:27:00 69 /min [facility] Body temperature 2023-10-12 19:27:[address] [facility] Body height 2023-10-12 19:27:00 152.4 cm [facility] Body weight 2023-10-12 19:27:00 62.143 kg [facility] BMI 2023-10-12 19:27:00 26.76 kg/m2 [facility] Oxygen saturation in Arterial blood by Pulse oximetry 2023-10-12 19:27:00 100 /min [facility] Systolic blood pressure 2023-09-02 22:06:00 130 mm[Hg] [facility] Diastolic blood pressure 2023-09-02 22:06:00 86 mm[Hg] [facility] Heart rate 2023-09-02 22:06:00 89 /[facility] 2023-09-02 22:06:00 152.4 [facility] Body weight 2023-09-02 22:06:00 64.184 kg [facility] BMI 2023-09-02 22:06:00 27.63 kg/m2 [facility] Oxygen saturation in Arterial blood by Pulse oximetry 2023-09-02 22:06:00 99 /min [facility] Systolic blood pressure 2023-05-13 19:32:00 134 mm[Hg] [facility] Diastolic blood pressure 2023-05-13 19:32:00 83 mm[Hg] [facility] Heart rate 2023-05-13 19:32:00 94 /min [facility] Body temperature 2023-05-13 19:32:[address] [facility] Body height 2023-05-13 19:32:00 152.4 cm [facility] Body weight 2023-05-13 19:32:00 64.638 kg [facility] BMI 2023-05-13 19:32:00 27.83 kg/m2 [facility] Oxygen saturation in Arterial blood by Pulse oximetry 2023-05-13 19:32:00 97 /min [facility] Systolic blood pressure 2023-04-28 21:10:00 101 mm[Hg] [facility] Diastolic blood pressure 2023-04-28 21:10:00 71 mm[Hg] [facility] Heart rate 2023-04-28 21:10:00 86 /min [facility] Respiratory rate 2023-04-28 21:10:00 18 /min [facility] Body height 2023-04-28 21:10:00 152.4 cm [facility] Body weight 2023-04-28 21:10:00 63.413 kg [facility] BMI 2023-04-28 21:10:00 27.30 kg/m2 [facility] Oxygen saturation in Arterial blood by Pulse oximetry 2023-04-28 21:10:00 99 /min [facility] Systolic blood pressure 2023-03-26 17:45:00 118 mm[Hg] [facility] Diastolic blood pressure 2023-03-26 17:45:00 70 mm[Hg] [facility] Heart rate 2023-03-26 17:45:00 83 /min [facility] Body temperature 2023-03-26 17:45:[address] [facility] Respiratory rate 2023-03-26 17:45:00 17 /min [facility] Body height 2023-03-26 17:45:00 152.4 cm [facility] Body weight 2023-03-26 17:45:00 61.326 kg [facility] BMI 2023-03-26 17:45:00 26.40 kg/m2 [facility] Oxygen saturation in Arterial blood by Pulse oximetry 2023-03-26 17:45:00 98 /min [facility] Systolic blood pressure 2023-01-03 20:45:00 118 mm[Hg] [facility] Diastolic blood pressure 2023-01-03 20:45:00 76 mm[Hg] [facility] Heart rate 2023-01-03 20:45:00 81 /min [facility] Body temperature 2023-01-03 20:45:[address] [facility] Respiratory rate 2023-01-03 20:45:00 18 /min [facility] Body height 2023-01-03 20:45:00 152.4 [facility] Body weight 2023-01-03 20:45:00 60.873 kg [facility] BMI 2023-01-03 20:45:00 26.21 kg/m2 [facility] Oxygen saturation in Arterial blood by Pulse oximetry 2023-01-03 20:45:00 99 /min [facility] Systolic blood pressure 2022-11-18 20:05:00 125 mm[Hg] [facility] Diastolic blood pressure 2022-11-18 20:05:00 75 mm[Hg] [facility] Heart rate 2022-11-18 20:05:00 74 /min [facility] Body temperature 2022-11-18 20:05:[address] [facility] Body height 2022-11-18 20:05:00 152.4 cm [facility] Body weight 2022-11-18 20:05:00 60.328 kg [facility] BMI 2022-11-18 20:05:00 25.97 kg/m2 [facility] Oxygen saturation in Arterial blood by Pulse oximetry 2022-11-18 20:05:00 100 /min [facility] Systolic blood pressure 2022-09-28 19:02:00 116 mm[Hg] [facility] Diastolic blood pressure 2022-09-28 19:02:00 74 mm[Hg] [facility] Heart rate 2022-09-28 19:02:00 78 /min Un[facility] Body temperature 2022-09-28 19:02:[address] [facility] Body height 2022-09-28 19:02:00 152.4 cm [facility] Body weight 2022-09-28 19:02:00 58.06 kg [facility] BMI 2022-09-28 19:02:00 25.00 kg/m2 [facility] Oxygen saturation in Arterial blood by Pulse oximetry 2022-09-28 19:02:00 99 /min [facility] Systolic blood pressure 2022-08-27 19:51:00 133 mm[Hg] [facility] Diastolic blood pressure 2022-08-27 19:51:00 82 mm[Hg] [facility] Heart rate 2022-08-27 19:51:00 72 /min Un[facility] Body height 2022-08-27 19:51:00 152.4 cm [facility] Body weight 2022-08-27 19:51:00 57.607 kg [facility] BMI 2022-08-27 19:51:00 24.80 kg/m2 [facility] Oxygen saturation in Arterial blood by Pulse oximetry 2022-08-27 19:51:00 99 /min [facility] Systolic blood pressure 2022-07-07 17:56:00 120 mm[Hg] [facility] Diastolic blood pressure 2022-07-07 17:56:00 76 mm[Hg] [facility] Heart rate 2022-07-07 17:56:00 85 /min [facility] Body temperature 2022-07-07 17:56:[address] [facility] Body height 2022-07-07 17:56:00 152.4 cm [facility] Body weight 2022-07-07 17:56:00 59.966 kg [facility] BMI 2022-07-07 17:56:00 25.82 kg/m2 [facility] Oxygen saturation in Arterial blood by Pulse oximetry 2022-07-07 17:56:00 100 /min [facility] Systolic blood pressure 2022-06-03 20:45:00 131 mm[Hg] [facility] Diastolic blood pressure 2022-06-03 20:45:00 82 mm[Hg] [facility] [facility] Heart rate 2022-06-03 20:45:00 84 /min [facility] Body temperature 2022-06-03 20:45:[address] [facility] Body height 2022-06-03 20:45:00 152.4 cm [facility] Body weight 2022-06-03 20:45:00 60.782 kg [facility] BMI 2022-06-03 20:45:00 26.17 kg/m2 [facility] Oxygen saturation in Arterial blood by Pulse oximetry 2022-06-03 20:45:00 99 /min [facility] Procedures Procedure Date / Time Performed Performing [facility] n Source DISCLOSURE AND CONSENT, MEDICAL AND SURGICAL PROCEDURES 2023-05-13 05:01:00 Doctor Unassigned, [place] [facility] REFERRAL- REQUEST/RESPONSE 2023-04-29 05:01:00 Doctor Unassigned, [place] [facility] PAIN MANAGEMENT AGREEMENT & INFORMED CONSENT 2022-06-03 05:01:00 Doctor Unassigned, [place] [facility] Encounters Start Date/Time End Date/Time Encounter Type Admission Type Attending [facility] Care Department Encounter ID Source 2024-08-27 00:00:00 2024-09-29 18:19:12 [facility] 1.2.840.114 350.1.13.10 4.2.7.2.686 [id number] 044 [id number] [facility] 2024-09-26 00:00:00 2024-09-26 14:43:08 Patient Secure Msg [facility] ARABELLA?[facility] MEDICAL OFFICE BUILDING 1..840.114 350.1.13.10 4.2.7.2.686 [id number] 044 [id number] [facility] 2024-09-20 14:00:00 2024-09-20 14:00:00 Outpatient R ZEINAB [facility] [id number] [facility] 2024-08-01 00:00:00 2024-09-01 18:15:31 Patient Secure Msg [facility] ARABELLA?[facility] MED[facility] OFFICE BUILD[facility] 1..840.114 350.1.13.10 4.2.7.2.686 [id number] 044 [id number] [facility] 2024-08-28 00:00:00 2024-08-29 06:55:18 [facility] MED[facility] OFF[facility] BUILD[facility] 1.2.840.114 350.1.13.10 4.2.7.2.686 [id number] 044 [id number] [facility] 2024-08-24 00:00:00 2024-08-24 14:37:25 [facility] MED[facility] OFF[facility] BUILD[facility] 1.2.840.114 350.1.13.10 4.2.7.2.686 [id number] 044 [id number] [facility] 2024-08-20 00:00:00 2024-08-20 14:28:31 [facility] 1.840.114 350.1.13.10 4.2.7.2.686 [id number] 044 [id number] [facility] 2024-08-19 00:00:00 2024-08-20 12:49:59 Patient Secure Msg [facility] ARABELLA?[facility] MEDICAL OFFICE BUILDING 1.114 350.1.13.10 4.2.7.2.686 [id number] 044 [id number] [facility] 2024-08-20 11:00:00 2024-08-20 11:00:00 Outpatient R JOAN [facility] [id number] [facility] 2024-08-01 00:00:00 2024-08-01 14:24:08 Agnes [facility] ARABELLA?[facility] MEDICAL OFFICE BUILDING 1.114 350.1.13.10 4.2.7.2.686 [id number] 044 [id number] [facility] 2024-07-03 00:00:00 2024-07-03 12:47:43 [facility] 1.84.114 350.1.13.10 4.2.7.2.686 [id number] 044 [id number] [facility] 2024-05-04 00:00:00 2024-06-09 18:23:53 Patient Secure Msg [facility] ARABELLA?[facility] 1.840.114 350.1.13.10 4.2.7.2.686 [id number] 044 [id number] [facility] 2024-06-05 00:00:00 2024-06-06 09:26:12 [facility] MED[facility] OFF[facility] BUILD[facility] 1.2840.114 350.1.13.10 4.2.7.2.686 [id number] 044 [id number] [facility] 2024-06-05 00:00:00 2024-06-06 06:53:42 Patient [facility] MED[facility] OFFICE BUILD[facility] 1.2840.114 350.1.13.10 4.2.7.2.686 [id number] 044 [id number] [facility] 2024-06-03 00:00:00 2024-06-05 06:35:24 [facility] MED[facility] OFF[facility] BUILD[facility] 1.2840.114 350.1.13.10 4.2.7.2.686 [id number] 044 [id number] [facility] 2024-05-04 00:00:00 2024-05-07 13:40:05 [facility] MED[facility] OFFICE BUILD[facility] 1.2.114 350.1.13.10 4.2.7.2.686 [id number] 044 [id number] [facility] 2024-05-04 00:00:00 2024-05-04 15:50:36 Patient Secure M[facility] MED[facility] OFF[facility] BUILD[facility] 1.2840.114 350.1.13.10 4.2.7.2.686 [id number] 044 [id number] [facility] 2024-04-22 00:00:00 2024-04-23 07:38:55 [facility] MED[facility] OFF[facility] BUILD[facility] 1.2840.114 350.1.13.10 4.2.7.2.686 [id number] 044 [id number] [facility] 2024-04-05 00:00:00 2024-04-06 06:06:33 Patient [facility] MED[facility] OFFICE BUILD[facility] 1.2.840.114 350.1.13.10 4.2.7.2.686 [id number] 044 [id number] [facility] 2024-02-15 00:00:00 2024-03-17 18:15:50 Patient Secure Msg [facility] ARABELLA?[facility] MEDICAL OFFICE BUILDING 1.2840.114 350.1.13.10 4.2.7.2.686 [id number] 044 [id number] [facility] 2024-03-14 00:00:00 2024-03-15 10:39:07 [facility] MED[facility] OFFICE BUILD[facility] 1.2.840.114 350.1.13.10 4.2.7.2.686 [id number] 044 [id number] [facility] 2024-03-15 00:00:00 2024-03-15 10:36:43 [facility] MED[facility] OFFICE BUILD[facility] 1.2.840.114 350.1.13.10 4.2.7.2.686 [id number] 044 [id number] [facility] 2024-02-15 00:00:00 2024-02-16 12:29:35 [facility] MED[facility] OFFICE BUILD[facility] 1.2.840.114 350.1.13.10 4.2.7.2.686 [id number] 044 [id number] [facility] 2024-02-16 00:00:00 2024-02-16 10:40:08 Tele[facility] MED[facility] OFF[facility] BUILD[facility] 1.2840.114 350.1.13.10 4.2.7.2.686 [id number] 044 [id number] [facility] 2024-01-19 14:00:00 2024-01-19 14:38:21 Outpatient R JOAN [facility] [id number] [facility] 2024-01-19 14:00:00 2024-01-19 14:38:21 [facility] MED[facility] OFF[facility] BUILD[facility] 1.2840.114 350.1.13.10 4.2.7.2.686 [id number] 044 [id number] [facility] 2024-01-19 00:00:00 2024-01-19 00:00:00 Letter (Out) Leilani [facility] ARABELLA?[facility] MEDICAL OFFICE BUILDING 1.2840.114 350.1.13.10 4.2.7.2.686 [id number] 044 [id number] [facility] 2023-12-28 00:00:00 2023-12-28 00:00:00 Telephone Mary Jo Amado [facility] ARABELLA?[facility] MEDICAL OFFICE BUILDING 1.284.114 350.1.13.10 4.2.7.2.686 [id number] 044 [id number] [facility] 2023-12-19 00:00:00 2023-12-19 00:00:00 Patient Secure Msg Leilani [facility] ARABELLA?[facility] MEDICAL OFFICE BUILDING 1.2840.114 350.1.13.10 4.2.7.2.686 [id number] 044 [id number] [facility] 2023-12-02 00:00:00 2023-12-02 00:00:00 Telephone Axel Contreras [facility] ARABELLA?[facility] MEDICAL OFFICE BUILDING 1.2840.114 350.1.13.10 4.2.7.2.686 [id number] 044 [id number] [facility] 2023-12-02 00:00:00 2023-12-02 00:00:00 Patient Secure [facility] MED[facility] OFF[facility] BUILD[facility] 1.2.840.114 350.1.13.10 4.2.7.2.686 [id number] 044 [id number] [facility] 2023-11-24 00:00:00 2023-11-24 00:00:00 Refill Mary Jo Amado [facility] ARABELLA?[facility] MEDICAL OFFICE BUILDING 1.2840.114 350.1.13.10 4.2.7.2.686 [id number] 044 [id number] [facility] 2023-11-17 00:00:00 2023-11-17 00:00:00 Refill Mary Jo Amado [facility] ARABELLA?[facility] MEDICAL OFFICE BUILDING 1.2840.114 350.1.13.10 4.2.7.2.686 [id number] 044 [id number] [facility] 2023-10-31 00:00:00 2023-10-31 00:00:00 Patient Secure Msg Leilani [facility] ARABELLA?[facility] MEDICAL OFFICE BUILDING 1.840.114 350.1.13.10 4.2.7.2.686 [id number] 044 [id number] [facility] 2023-10-27 00:00:00 2023-10-27 00:00:00 Patient Secure [facility] MED[facility] OFFICE BUILDING 1.2840.114 350.1.13.10 4.2.7.2.686 [id number] 044 [id number] [facility] 2023-10-27 00:00:00 2023-10-27 00:00:00 [facility] OFF[facility] BUILD[facility] 1.2.840.114 350.1.13.10 4.2.7.2.686 [id number] 044 [id number] [facility] 2023-10-26 00:00:00 2023-10-26 00:00:00 Refill Leilani [facility] ARABELLA?[facility] MEDICAL OFFICE BUILDING 1.2.840.114 350.1.13.10 4.2.7.2.686 [id number] 044 [id number] [facility] 2023-10-26 00:00:00 2023-10-26 00:00:00 Refill Leilani [facility] ARABELLA?[facility] MEDICAL OFFICE BUILDING 1.2840.114 350.1.13.10 4.2.7.2.686 [id number] 044 [id number] [facility] 2023-10-25 00:00:00 2023-10-25 00:00:00 Patient Secure Msg Leilani [facility] ARABELLA?[facility] MEDICAL OFFICE BUILDING 1.2840.114 350.1.13.10 4.2.7.2.686 [id number] 044 [id number] [facility] 2023-10-25 00:00:00 2023-10-25 00:00:00 Telephone Leilani [facility] ARABELLA?[facility] MEDICAL OFFICE BUILDING 1.2840.114 350.1.13.10 4.2.7.2.686 [id number] 044 [id number] [facility] 2023-10-24 00:00:00 2023-10-24 00:00:00 Refill Leilani [facility] ARABELLA?[facility] MEDICAL OFFICE BUILDING 1.2840.114 350.1.13.10 4.2.7.2.686 [id number] 044 [id number] [facility] 2023-10-12 13:00:00 2023-10-12 13:51:03 Outpatient ZEINAB TORREZ [facility] [id number] [facility] 2023-10-12 13:00:00 2023-10-12 13:51:03 [facility] MEDICAL OFFICE BUILDING 1.284.114 350.1.13.10 4.2.7.2.686 [id number] 044 [id number] [facility] 2023-10-12 00:00:00 2023-10-12 00:00:00 Letter (Out) [facility] MEDICAL OFFICE BUILDING 1.284.114 350.1.13.10 4.2.7.2.686 [id number] 044 [id number] [facility] 2023-09-29 00:00:00 2023-09-29 00:00:00 [facility] MEDICAL OFFICE BUILDING 1.284.114 350.1.13.10 4.2.7.2.686 [id number] 044 [id number] [facility] 2023-09-27 00:00:00 2023-09-27 00:00:00 [facility] MEDICAL OFFICE BUILDING 1.284.114 350.1.13.10 4.2.7.2.686 [id number] 044 [id number] [facility] 2023-09-16 00:00:00 2023-09-16 00:00:00 [facility] MED[facility] OFFICE BUILDING 1.284.114 350.1.13.10 4.2.7.2.686 [id number] 044 [id number] [facility] 2023-09-16 00:00:00 2023-09-16 00:00:00 Patient Secure Msg [facility] MED[facility] OFFICE BUILDING 1.2840.114 350.1.13.10 4.2.7.2.686 [id number] 044 [id number] [facility] 2023-09-15 00:00:00 2023-09-15 00:00:00 [facility] 1.2840.114 350.1.13.10 4.2.7.2.686 [id number] 044 [id number] [facility] 2023-09-15 00:00:00 2023-09-15 00:00:00 Telephone Leilani [facility] ARABELLA?[facility] MEDICAL OFFICE BUILDING 1.0.114 350.1.13.10 4.2.7.2.686 [id number] 044 [id number] [facility] 2023-09-14 00:00:00 2023-09-14 00:00:00 Refill Leilani [facility] ARABELLA?[facility] MEDICAL OFFICE BUILDING 1.0.114 350.1.13.10 4.2.7.2.686 [id number] 044 [id number] [facility] 2023-09-02 16:00:00 2023-09-02 16:40:16 Outpatient R LEILANI JOAN LEILANI [facility] [id number] [facility] 2023-09-02 16:00:00 2023-09-02 16:40:16 Office Visit Leilani [facility] ARABELLA?[facility] MEDICAL OFFICE BUILDING 1.2840.114 350.1.13.10 4.2.7.2.686 [id number] 044 [id number] [facility] 2023-08-15 00:00:00 2023-08-15 00:00:00 Patient Secure Msg Leilani [facility] ARABELLA?[facility] MEDICAL OFFICE BUILDING 1.2840.114 350.1.13.10 4.2.7.2.686 [id number] 044 [id number] [facility] 2023-07-28 14:40:00 2023-07-28 14:40:00 [facility] [id number] [facility] 2023-07-26 00:00:00 2023-07-26 00:00:00 Agnes Contreras [facility] ARABELLA?[facility] MEDICAL OFFICE BUILDING 1.2.840.114 350.1.13.10 4.2.7.2.686 [id number] 044 [id number] [facility] 2023-07-25 00:00:00 2023-07-25 00:00:00 Patient Secure Msg [facility] ARABELLA?[facility] MEDICAL OFFICE BUILDING 1.2.840.114 350.1.13.10 4.2.7.2.686 [id number] 044 [id number] [facility] 2023-07-25 00:00:00 2023-07-25 00:00:00 Agnes Contreras [facility] ARABELLA?[facility] MEDICAL OFFICE BUILDING 1.2.840.114 350.1.13.10 4.2.7.2.686 [id number] 044 [id number] [facility] 2023-06-28 00:00:00 2023-06-28 00:00:00 Agnes [facility] ARABELLA?[facility] MEDICAL OFFICE BUILDING 1.2.840.114 350.1.13.10 4.2.7.2.686 [id number] 044 [id number] [facility] 2023-05-31 00:00:00 2023-05-31 00:00:00 Patient Secure Msg [facility] ARABELLA?[facility] MEDICAL OFFICE BUILDING 1.2.840.114 350.1.13.10 4.2.7.2.686 [id number] 044 [id number] [facility] 2023-05-26 10:40:00 2023-05-26 10:40:00 Outpatient R JOAN [facility] [id number] [facility] 2023-05-16 00:00:00 2023-05-16 00:00:00 Telephone Leilani [facility] ARABELLA?[facility] 1.2840.114 350.1.13.10 4.2.7.2.686 [id number] 044 [id number] [facility] 2023-05-13 14:40:00 2023-05-13 15:10:40 Outpatient R JOAN [facility] [id number] [facility] 2023-05-13 14:40:00 2023-05-13 15:10:40 Office Visit Leilani [facility] MEDICAL OFFICE BUILDING 1.2840.114 350.1.13.10 4.2.7.2.686 [id number] 044 [id number] [facility] 2023-05-13 00:00:00 2023-05-13 00:00:00 [facility] (Out[facility] 1.2840.114 350.1.13.10 4.2.7.2.686 [id number] 044 [id number] [facility] 2023-05-13 00:00:00 2023-05-13 00:00:00 Orders Only Doctor Unassigned, [place] [facility] 1.20.114 350.1.13.10 4.2.7.2.686 [id number] [id number] [facility] 2023-05-09 00:00:00 2023-05-09 00:00:00 Patient Secure Msg Leilani [facility] MEDICAL OFFICE BUILDING 1.2840.114 350.1.13.10 4.2.7.2.686 [id number] 044 [id number] [facility] 2023-05-05 00:00:00 2023-05-05 00:00:00 Patient Secure g Leilani [facility] ARABELLA?[facility] 1.2.840.114 350.1.13.10 4.2.7.2.686 [id number] 044 [id number] [facility] 2023-04-29 00:00:00 2023-04-29 00:00:00 Orders Only Doctor Unassigned, [place] [facility] 1.2.840.114 350.1.13.10 4.2.7.2.686 [id number] [facility] 2023-04-28 16:00:00 2023-04-28 16:28:29 [facility] [id number] [facility] 2023-04-28 16:00:00 2023-04-28 16:28:29 Office Visit Leilani [facility] ARABELLA?[facility] MEDICAL OFFICE BUILDING 1..840.114 350.1.13.10 4.2.7.2.686 [id number] 044 [id number] [facility] 2023-03-30 00:00:00 2023-03-30 00:00:00 Patient Secure Msg [facility] ARABELLA?[facility] MEDICAL OFFICE BUILDING 1..840.114 350.1.13.10 4.2.7.2.686 [id number] 044 [id number] [facility] 2023-03-30 00:00:00 2023-03-30 00:00:00 Refill Leilani [facility] ARABELLA?[facility] MEDICAL OFFICE BUILDING 1.2.840.114 350.1.13.10 4.2.7.2.686 [id number] 044 [id number] [facility] 2023-03-26 12:40:00 2023-03-26 13:01:19 Outpatient R SUNNY SOLIS [facility] [id number] [facility] 2023-03-26 12:40:00 2023-03-26 13:01:19 Urgent Care Sunny Solis Unknown, Attending [facility] 1..840.114 350.1.13.10 4.2.7.2.686 [id number] [facility] 2023-03-01 00:00:00 2023-03-01 00:00:00 [facility] OFF[facility] BU[facility] 1..840.114 350.1.13.10 4.2.7.2.686 [id number] 044 [id number] [facility] 2023-02-28 11:30:00 2023-02-28 11:45:00 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, [facility] MED[facility] OFFICE BUILDING 1..840.114 350.1.13.10 4.2.7.2.686 [id number] [facility] 2023-02-28 11:30:00 2023-02-28 11:30:00 Outpatient JOAN LOPES [facility] [id number] [facility] 2023-02-25 11:40:00 2023-02-25 11:40:00 Outpatient JOAN LOPES JOAN [facility] [id number] [facility] 2023-02-18 14:20:00 2023-02-18 14:20:00 Outpatient JOAN LOPES [facility] [id number] [facility] 2023-02-03 00:00:00 2023-02-03 00:00:00 Refill Leilani [facility] ARABELLA?[facility] MEDICAL OFFICE BUILDING 1..840.114 350.1.13.10 4.2.7.2.686 [id number] 044 [id number] [facility] 2023-01-12 00:00:00 2023-01-12 00:00:00 Patient Secure Msleroy [facility] ARABELLA?[facility] 1.840.114 350.1.13.10 4.2.7.2.686 [id number] 044 [id number] [facility] 2023-01-07 14:00:00 2023-01-07 14:00:00 Outpatient R [facility] [id number] [facility] 2023-01-03 16:00:00 2023-01-03 16:46:42 Outpatient R LEILANI JOAN KLEY, [facility] [id number] [facility] 2023-01-03 16:00:00 2023-01-03 16:46:42 Office Visit Moriahkyle [facility] ARABELLA?[facility] MEDICAL OFFICE BUILDING 1.84.114 350.1.13.10 4.2.7.2.686 [id number] 044 [id number] [facility] 2022-12-30 14:40:00 2022-12-30 14:40:00 Outpatient R LEILANI JOAN MORIAHKyle [facility] [id number] [facility] 2022-12-14 00:00:00 2022-12-14 00:00:00 Refill Leilani [facility] ARABELLA?[facility] MEDICAL OFFICE BUILDING 1.840.114 350.1.13.10 4.2.7.2.686 [id number] 044 [id number] [facility] 2022-11-25 00:00:00 2022-11-25 00:00:00 Refill Leilani [facility] ARABELLA?[facility] MEDICAL OFFICE BUILDING 1.840.114 350.1.13.10 4.2.7.2.686 [id number] 044 [id number] [facility] 2022-11-18 14:20:00 2022-11-18 14:40:00 Office Visit Leilani [facility] ARABELLA?[facility] 1.2.840.114 350.1.13.10 4.2.7.2.686 [id number] 044 [id number] [facility] 2022-11-18 14:20:00 2022-11-18 14:20:00 Outpatient R [facility] [id number] [facility] 2022-11-18 00:00:00 2022-11-18 00:00:00 Refill Leilani [facility] ARABELLA?[facility] MED[facility] OFF[facility]ILD[facility] 1.2.840.114 350.1.13.10 4.2.7.2.686 [id number] 044 [id number] [facility] 2022-11-18 00:00:00 2022-11-18 00:00:00 Letter (Out) Leilani [facility] ARABELLA?[facility] MED[facility]ILD[facility] 1..840.114 350.1.13.10 4.2.7.2.686 [id number] 044 [id number] [facility] 2022-10-11 00:00:00 2022-10-11 00:00:00 Telephone Leilani [facility] ARABELLA?[facility]ILD[facility] 1..840.114 350.1.13.10 4.2.7.2.686 [id number] 044 [id number] [facility] 2022-10-10 00:00:00 2022-10-10 00:00:00 Refill Leilani [facility] ARABELLA?[facility]ILD[facility] 1..840.114 350.1.13.10 4.2.7.2.686 [id number] 044 [id number] [facility] 2022-09-29 00:00:00 2022-09-29 00:00:00 Telephone Leilani [facility] ARABELLA?[facility] 1.2.840.114 350.1.13.10 4.2.7.2.686 [id number] 044 [id number] [facility] 2022-09-28 13:00:00 2022-09-28 13:27:03 Outpatient R [facility] [id number] [facility] 2022-09-28 13:00:00 2022-09-28 13:27:03 Office Visit Leilani [facility] ARABELLA?[facility] 1.2.840.114 350.1.13.10 4.2.7.2.686 [id number] 044 [id number] [facility] 2022-09-23 00:00:00 2022-09-23 00:00:00 Refill Leilani [facility] ARABELLA?[facility] MED[facility] OFFICE BUILDING 1.2.840.114 350.1.13.10 4.2.7.2.686 [id number] 044 [id number] [facility] 2022-09-16 00:00:00 2022-09-16 00:00:00 Telephone Leilani [facility] ARABELLA?[facility]ILD[facility] 1.2.840.114 350.1.13.10 4.2.7.2.686 [id number] [id number] [facility] 2022-08-31 00:00:00 2022-08-31 00:00:00 Telephone Leilani [facility] ARABELLA?[facility]ILD[facility] 1.2.840.114 350.1.13.10 4.2.7.2.686 [id number] 044 [id number] [facility] [facility]08-27 13:40:00 2022-08-27 14:05:20 Outpatient R [facility] [id number] [facility] 2022-08-27 13:40:00 2022-08-27 14:05:20 Office Visit Leilani [facility] OLIVER BELL?[facility] 1.2.840.114 350.1.13.10 4.2.7.2.686 [id number] [facility] 2022-08-27 00:00:00 2022-08-27 00:00:00 Telephone Leilani [facility] OLIVER BELL?[facility] 1.2.840.114 350.1.13.10 4.2.7.2.686 [id number] [facility] 2022-07-28 00:00:00 2022-07-28 00:00:00 [facility] 1.2.840.114 350.1.13.10 4.2.7.2.686 [id number] [facility] 2022-07-07 13:00:00 2022-07-07 13:29:34 Outpatient R [facility] [id number] [facility] 2022-07-07 13:00:00 2022-07-07 13:29:34 [facility] 1..840.114 350.1.13.10 4.2.7.2.686 [id number] [facility] 2022-07-07 00:00:00 2022-07-07 00:00:00 Letter (Out) [facility] 1.2.840.114 350.1.13.10 4.2.7.2.686 [id number] [facility] 2022-06-28 00:00:00 2022-06-28 00:00:00 [facility] 1..840.114 350.1.13.10 4.2.7.2.686 [id number] [facility] 2022-06-28 00:00:00 2022-06-28 00:00:00 Refill Leilani [facility] ARABELLA?[facility] 1..840.114 350.1.13.10 4.2.7.2.686 [id number] [facility] 2022-06-04 15:40:00 2022-06-04 15:40:00 Outpatient R [facility] [id number] [facility] 2022-06-04 15:40:00 2022-06-04 15:40:00 Outpatient R [facility] [id number] [facility] 2022-06-03 15:40:00 2022-06-03 16:11:09 Outpatient R [facility] [id number] [facility] 2022-06-03 15:40:00 2022-06-03 16:11:09 Office Visit Leilani [facility] ARABELLA?[facility] 1.840.114 350.1.13.10 4.2.7.2.686 [id number] [facility] 2022-06-03 15:40:00 2022-06-03 15:40:00 Outpatient R [facility] [id number] [facility] 2022-06-03 14:20:00 2022-06-03 14:20:00 Outpatient R [facility] [id number] [facility] 2022-06-03 00:00:00 2022-06-03 00:00:00 Orders Only Doctor Unassigned, [place] [facility] 1.840.114 350.1.13.10 4.2.7.2.686 [id number] [facility] 2022-06-03 00:00:00 2022-06-03 00:00:00 Letter (Out) Leilani [facility] 1..840.114 350.1.13.10 4.2.7.2.686 [id number] [facility] 2022-05-06 15:40:00 2022-05-06 16:32:35 Outpatient R [facility] [id number] [facility] 2022-05-06 15:40:00 2022-05-06 16:32:35 Office Visit Leilani [facility] 1.840.114 350.1.13.10 4.2.7.2.686 [id number] [facility] 2022-05-06 15:40:00 2022-05-06 16:32:35 Outpatient R [facility] [id number] [facility] 2022-05-05 16:00:00 2022-05-05 16:20:00 [facility] 1.840.114 350.1.13.10 4.2.7.2.686 [id number] [facility] 2022-05-05 16:00:00 2022-05-05 16:00:00 Outpatient R [facility] [id number] [facility] 2022-05-05 00:00:00 2022-05-05 00:00:00 Orders Only Doctor Unassigned, [place] [facility] 1.840.114 350.1.13.10 4.2.7.2.686 [id number] [facility]
--- NOTE | 2024-10-19 18:14 | EDPHYS ---
Physician Documentation [facility] Name: Jyoti Amado Age: 39 yrs Sex: Female : 1985 Arrival Date: 10/19/2024 Time: 15:52 Bed IW10 Private MD: ED Physician Jay Rajan HPI: 10/19 16:17 This 39 yrs old Female presents to ER via Ambulatory with complaints of Heavy bleeding, sb4 Headache. 16:17 Patient reports heavy vaginal bleeding x 2 weeks. She says that she developed pelvic sb4 pain 2 days ago that has slowly worsened. States that this is not a normal menstrual cycle for her. Last LMP was about 3 weeks ago that lasted 3 days in duration, like her prior cycles. Additionally, she states that she has felt very bloated and her breasts are enlarged and tender. Is unsure of status, had her tubes tied 18 years ago but has never had them checked since. 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 - Infectious Disease History:: Denies. - Social history:: Smoking status: Patient reports the use of cigarette tobacco products, smokes one-half pack cigarettes per day. ROS: 16:17 Constitutional: Negative for fever, chills, and weight loss, sb4 16:17 Abdomen/GI: Positive for 16:17 : Positive for pelvic pain, vaginal bleeding, menstrual abnormality, 16:17 All other systems are negative, Exam: 16:17 Head/Face: Normocephalic, atraumatic. Eyes: Extra-ocular motions intact. Periorbital sb4 areas with no swelling, redness, or edema. ENT: Mucous membranes moist. Cardiovascular: Regular rate and rhythm with a normal S1 and S2. Respiratory: No increased work of breathing, no retractions or nasal flaring. Skin: Warm, dry with normal turgor. Normal color with no rashes, no lesions, and no evidence of cellulitis. 16:17 Constitutional: The patient appears alert, awake, uncomfortable, 16:17 Chest/axilla: Breasts: swelling, that is mild in both breasts, tenderness, that is moderate, in both breasts, 16:17 Abdomen/GI: Inspection: distension, that is mild, in the abdomen diffusely, Palpation: soft, mild abdominal tenderness, in the suprapubic area, Vital Signs: 15:59 BP 157 / 103; Pulse 82; Resp 16 S; Temp 97.3(TE); Pulse Ox 100% on R/A; Weight 63.5 kg kc6 (R); Height 5 ft. 0 in. (R); Pain 9/10; 15:59 Body Mass Index 27.34 (63.50 kg, 152.4 cm) kc6 15:59 Pain Scale: Adult kc6 MDM: 15:57 Medical Screening Exam initiated sb4 18:15 Data reviewed: vital signs, nurses notes, and as a result, I will discharge patient. sb4 Test considered but Not performed: Labs: patient eloped. CT: patient eloped. ED course: patient left the ED prior to blood work and imaging obtained, after my assessment.. 10/19 16:13 Order name: IV Start sb4 Administered Medications: No medications were administered Disposition: 17:44 I was immediately available on-site in the Emergency Department for consultation in the ms3 care of the patient. Disposition Summary: 10/19/24 18:14 Discharge Ordered Notes: Location: Home sb4 Problem: an ongoing problem sb4 Symptoms: are unchanged sb4 Condition: Undetermined sb4 Diagnosis - Abnormal uterine and vaginal bleeding, unspecified sb4 - Lower abdominal pain, unspecified sb4 Followup: sb4 - With: Emergency Department - When: As needed - Reason: Trouble breathing, Worsening of condition Forms: - Medication Reconciliation Form sb4 - Antibiotic Education sb4 - Prescription Opioid Use sb4 - Patient Portal Instructions sb4 - Leadership Thank You Letter sb4 Signatures: Dispatcher [employer] EDMS Jay Rajan DO DO ms3 Ann Adan RN RN kc6 Yesenia Peace PA-C PA-C sb4 Corrections: (The following items were deleted from the chart) 16:03 16:02 Home Meds: None; kc6 kc6
--- NOTE | 2024-10-19 18:14 | ER ---
Nurse's Notes [facility] Name: Jyoti Amado Age: 39 yrs Sex: Female : 1985 Arrival Date: 10/19/2024 Time: 15:52 Bed IW10 Private MD: Diagnosis: Abnormal uterine and vaginal bleeding, unspecified;Lower abdominal pain, unspecified Presentation: 10/19 15:59 Chief complaint: Patient states: heavy vaginal bleeding x2 weeks. states,"I'm using an kc6 ultra tampon and a pad every hour, plus when I pee its all blood." pt reports abd cramping , back pain, swollen breasts and headache x3 days. Coronavirus screen: At this time, the client does not indicate any symptoms associated with coronavirus-19. Ebola Screen: No symptoms or risks identified at this time. Initial Sepsis Screen: Does the patient meet any 2 criteria? No. Patient's initial sepsis screen is negative. Does the patient have a suspected source of infection? No. Patient's initial sepsis screen is negative. Risk Assessment: Do you want to hurt yourself or someone else? Patient reports no desire to harm self or others. Onset of symptoms was October 19, 2024. 15:59 Method Of Arrival: Ambulatory [facility] 15:59 Acuity: GABO 3 kc6 Triage Assessment: 16:02 Headache History: Denies prior headaches. General: Appears in no apparent distress. kc6 uncomfortable, well groomed, well developed, Behavior is cooperative, appropriate for age, anxious, crying. Pain: Complains of pain in back, abdomen and pelvis Pain currently is 9 out of 10 on a pain scale. Pain began gradually, Also complains of no other associated symptoms. Neuro: Level of Consciousness is awake, alert, obeys commands, Oriented to person, place, time, situation, Appropriate for age. 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 - Infectious Disease History:: Denies. - Social history:: Smoking status: Patient reports the use of cigarette tobacco products, smokes one-half pack cigarettes per day. Vital Signs: 15:59 BP 157 / 103; Pulse 82; Resp 16 S; Temp 97.3(TE); Pulse Ox 100% on R/A; Weight 63.5 kg kc6 (R); Height 5 ft. 0 in. (R); Pain 9/10; 15:59 Body Mass Index 27.34 (63.50 kg, 152.4 cm) kc6 15:59 Pain Scale: Adult kc6 ED Course: 15:55 Patient arrived in ED. ra3 15:56 Yesenia Peace PA-C is PHCP. sb4 15:56 Jay Rajan DO is Attending Physician. sb4 16:02 Triage completed. kc6 16:02 Arm band placed on. kc6 Administered Medications: No medications were administered Outcome: 18:14 Discharge ordered by MD. sb4 18:34 Patient left the ED. hb Signatures: Asiha Hunter RN RN Ann Adan RN RN kc6 Yesenia Peace PA-C PA-C sbDeneen Rodriguez ra3 Corrections: (The following items were deleted from the chart) 16:03 16:02 Home Meds: None; kc6 kc6 16:06 15:59 Chief complaint: Patient states: heavy vaginal bleeding x2 weeks. states,"I'm kc6 using and ultra tampon and a pad every hour, plus when I pee its all blood." pt reports abd cramping , back pain and swollen breasts. kc6 16:06 15:59 BP 157 / 103; Pulse 82bpm; Resp 16bpm; Spontaneous; Pulse Ox 100% RA; 63.5 kg kc6 Reported; Height 5 ft. 0 in. Reported; BMI: 27.3; Pain 9/10, Adult; kc6
[2024-10-19 19:05] VITALS: BP 157/103; TEMP 97.3; O2SAT 100
== END 2024-10-19 18:34 | disposition home or self-care (01) ==
LOC: ER 15:52
DX: N93.9 Abnormal uterine and vaginal bleeding, unspecified (principal); R10.30 Lower abdominal pain, unspecified; F17.210 Nicotine dependence, cigarettes, uncomplicated
CPT/HCPCS: 99281